=== PATIENT | female | born 1980 | race American Indian/Alaskan Native ===

== ENCOUNTER 2017-08-08 18:09 | Inpatient (IN) | payer MEDICAID ==
--- NOTE | 2017-08-08 18:41 | ED PDOC ---
Arrival/HPI - General Chief Complaint: Psychiatric Evaluation Time Seen by Provider: 08/08/17 18:25 Historian: Patient - History of Present Illness Narrative History of Present Illness (Text): 08/08/17 18:37 37 y/o female, pmh including htn/hyperlipidemia/dm, psychiatric history of schizoaffeective/bipolar/psychosis/depression, penicillin allergy, FS 197, biba from [facility] for direct admission to Dr. Avelina Rea's service for suicidal ideation. Pt. stated that she has been having depression and suicidal thoughts with auditory hallucination for the past 1 week, suicidal plan is overdose on the tylenol which she didn't. Pt. was seen initially at the [facility] which labs were performed with normal acetaminophen level. Pt. stated that she feels well, no night sweat, no rash, no palpitation, no dizziness, no other medical or psychological complaints. Pt. has no vaginal bleeding or discharge, no pelvic pain. Past Medical History - Provider Review Nursing Documentation Reviewed: Yes - Infectious Disease Hx of Infectious Diseases: None - Cardiac Hx Hypertension: Yes - Pulmonary Hx Asthma: Yes - Endocrine/Metabolic Hx Diabetes Mellitus Type 2: Yes - Psychiatric Hx Bipolar Disorder: Yes Hx Depression: Yes Hx Psychosis: Yes Hx Substance Use: No Other/Comment: schizoeffective disorder Family/Social History - Physician Review Nursing Documentation Reviewed: Yes Family/Social History: Unknown Family HX Smoking Status: Never Smoked Hx Alcohol Use: No Hx Substance Use: No Allergies/Home Meds Allergies/Adverse Reactions: Allergies Penicillins Allergy (Verified 08/08/17 18:30) ANAPHYLAXIS Hurst Coolaid Allergy (Uncoded 08/08/17 18:30) ANAPHYLAXIS Grape Soda Allergy (Uncoded 08/08/17 18:30) ANAPHYLAXIS Home Medications: Home Meds Medication Instructions Recorded Confirmed Atorvastatin [Lipitor] 40 mg PO HS 08/08/17 08/08/17 Benztropine [Benztropine Mesylate] 0.5 mg PO BID 08/08/17 08/08/17 Divalproex [Depakote ER] 500 mg PO HS 08/08/17 08/08/17 Haldol 75 mg INJ Q2W 08/08/17 08/08/17 Haloperidol [Haldol] 10 mg PO BID 08/08/17 08/08/17 Lisinopril [Zestril] 5 mg PO DAILY 08/08/17 08/08/17 MetFORMIN [glucoPHAGE] 1,000 mg PO BID 08/08/17 08/08/17 Multivitamin [Daily Sara] 1 tab PO DAILY 08/08/17 08/08/17 Sertraline [Zoloft] 50 mg PO DAILY 08/08/17 08/08/17 traZODone [Desyrel] 50 mg PO HS 08/08/17 08/08/17 Review of Systems - Review of Systems Constitutional: absent: Fatigue, Fevers Eyes: absent: Vision Changes ENT: absent: Hearing Changes Respiratory: absent: SOB, Cough Cardiovascular: absent: Chest Pain Gastrointestinal: absent: Abdominal Pain, Constipation, Diarrhea, Nausea, Food Intolerance Musculoskeletal: absent: Arthralgias Skin: absent: Rash, Pruritis, Skin Lesions Neurological: absent: Headache, Dizziness Psychiatric: Depression, Suicidal Ideation. absent: Anxiety Physical Exam Vital Signs Reviewed: Yes Vital Signs Temp Pulse Resp BP Pulse Ox 08/08/17 18:30 98.9 F 80 20 129/86 99 Temperature: Afebrile Blood Pressure: Normal Pulse: Regular Respiratory Rate: Normal Appearance: Positive for: Well-Appearing, Non-Toxic, Comfortable Pain Distress: None Mental Status: Positive for: Alert and Oriented X 3 - Systems Exam Head: Present: Atraumatic, Normocephalic Pupils: Present: PERRL Extroacular Muscles: Present: EOMI Conjunctiva: Present: Normal Mouth: Present: Moist Mucous Membranes Neck: Present: Normal Range of Motion Respiratory/Chest: Present: Clear to Auscultation, Good Air Exchange. No: Respiratory Distress, Accessory Muscle Use Cardiovascular: Present: Regular Rate and Rhythm, Normal S1, S2. No: Murmurs Abdomen: Present: Normal Bowel Sounds. No: Tenderness, Distention, Peritoneal Signs Back: Present: Normal Inspection Upper Extremity: Present: Normal Inspection. No: Cyanosis, Edema Lower Extremity: Present: Normal Inspection. No: Edema Neurological: Present: GCS=15, CN II-XII Intact, Speech Normal Skin: Present: Warm, Dry, Normal Color. No: Rashes Psychiatric: Present: Alert, Oriented x 3, Normal Insight, Depressed Mood, Suicidal Ideation Medical Decision Making ED Course and Treatment: 08/08/17 18:42 -Labs reviewed including cbc/sma7/ua (show there is elevation of wbc and the patient has urinary symptoms but no vaginal bleeding or discharge, urine culture ordered by me here)/uds/acetaminophen level review. -I don't see any ekg or chest xray on the patient which I ordered ekg/cxr/urine culture, FS 197, admits urinary frequency but no vaginal bleeding/discharge, macrobid ordered. -I discussed the case and findings with Dr. Light, agreed that the patient can be admitted. 08/08/17 19:10 -Urine hcg is negative. -EKG: NSR @ 82 BPM, no ST elevation or depression, no T wave inversion -Chest xray show no active disease base on the ER wet read. Will follow up the official. -I spoke to the PES Jesusita, stated that the patient can be directly admitted to DR. Avelina Rea's service and she doesn't need to do the screening. -As planned, I will put in the admission order for Dr. Light. - RAD Interpretation Radiology Orders: 08/08/17 18:36 CHEST PORTABLE [RAD] Stat - EKG Interpretation EKG Interpretation (Text): 08/08/17 18:56 NSR @ 82 BPM, no ST elevation or depression, no T wave inversion Interpreted by ED Physician: Yes Type: 12 lead EKG - Medication Orders Current Medication Orders: Discontinued Medications Nitrofurantoin Macrocrystals (Macrobid) 100 mg PO STAT STA Stop: 08/08/17 18:47 Last Admin: 08/08/17 19:01 Dose: 100 mg - PA / LOOM WINDER TENDER / Resident Statement MD/DO has reviewed & agrees with the documentation as recorded. Disposition/Present on Arrival - Present on Arrival Any Indicators Present on Arrival: No History of DVT/PE: No History of Uncontrolled Diabetes: No Urinary Catheter: No History of Decub. Ulcer: No History Surgical Site Infection Following: None - Disposition Have Diagnosis and Disposition been Completed?: Yes Diagnosis: Suicidal ideation, Depression, UTI (urinary tract infection) Disposition: HOSPITALIZED Disposition Time: 18:45 Patient Plan: Admission Patient Problems: Current Active Problems Problem Status Onset Suicidal ideation Acute Depression Acute Condition: GUARDED Referrals: numberFire Asaf Remandy, [Primary Care Provider] - Follow up with primary Forms: [employer] ([place])
[2017-08-08] MEDS ORDERED: DiphenhydrAMINE 50 mg/ml Inj IM PRN (21:22)
[2017-08-09] MEDS ORDERED: Magnesium Hydroxide Susp 30 ml UD PO PRN (04:25)
[2017-08-09] MEDS ORDERED: Alum-Mag Hydrox-Simethicone Susp (30 mL) PO PRN (04:25)
[2017-08-09 06:34] LABS: BASO # 0.03 K/mm3 (0.0-2.0); BASO % 0.5 % (0.0-3.0); EOS # 0.2 (0.0-0.7); EOS % 2.7 % (1.5-5.0); GRAN # 2.79 (1.4-6.5); GRAN % 45.2 % (50.0-68.0); HEMATOCRIT 38.2 % (36.0-48.0); LYMPH # 2.8 (1.2-3.4); LYMPH % 44.7 % (22.0-35.0); MEAN CELL VOLUME 79.3 fl (80.0-105.0); MEAN PLATELET VOLUME 10.4 fl (7.0-11.0); MONO # 0.4 (0.1-0.6); MONO % 6.9 % (1.0-6.0); RED CELL DISTRIBUTION WIDTH 14.1 % (11.5-14.5); WHITE BLOOD COUNT 6.2 10^3/ul (4.5-11.0)
[2017-08-09 06:46] LABS: ALKALINE PHOSPHATASE 105 U/L (38-126); ALT/SGPT 32 U/L (7-56); AST/SGOT 19 U/L (14-36); BILIRUBIN,TOTAL 0.8 mg/dL (0.2-1.3); BLOOD UREA NITROGEN 9 mg/dL (7-21); CARBON DIOXIDE 26 mmol/L (21-33); CHLORIDE 103 mmol/L (98-107); GFR AFRICAN-AMERICAN > 60; GLUCOSE,RANDOM 189 mg/dL (70-110); POTASSIUM 3.8 mmol/L (3.6-5.0); SODIUM 136 mmol/L (132-148); TOTAL PROTEIN 6.9 g/dL (5.8-8.3)
--- NOTE | 2017-08-09 10:02 | RAD ---
HISTORY: medical clearance COMPARISON: No prior. FINDINGS: LUNGS: No active pulmonary disease. PLEURA: No significant pleural effusion identified, no pneumothorax apparent. CARDIOVASCULAR: Normal. OSSEOUS STRUCTURES: No significant abnormalities. VISUALIZED UPPER ABDOMEN: Normal. OTHER FINDINGS: None. IMPRESSION: No active disease.
--- NOTE | 2017-08-09 10:47 | PCM.PSYCH ---
Initial Psychiatric Evaluation - Initial Psychiatric Evaluation Type of Admission: Voluntary Legal Status: Capacity History of Present Illness and Precipitating Events: Patient is a single 37 y/o female with a psychiatric history of schizoaffective disorder and borderline personality disorder vs BIF, numerous prior admissions- most recently at [facility], history of suicide attempts most recently a year ago, in day treatment at the [facility] in [facility] , reported compliance with prescribed medications: Haldol Decanoate and Haldol po, Zoloft, trazodone and cogentin who was transferred from [facility] after being sent there by her day treatment program for depression, SI, and command auditory hallucinationsto kill herself. Patient reported to [facility] staff that she's been depressed for the last week and having suicidal thoughts to overdose on Tylenol. I met with patient at bedside. She is oriented to date, month, year, location and circumstances. Her affect is constricted and focus is fair. Grooming is adequate. Patient continues to report depression and hopelessness. She denies suicidal thoughts or recurrence of CAH/AH this morning. Thus far she is tolerating her medications and denies any new discomfort or pain. PSYCHIATRIC HISTORY Patient reports at least 10 to 11 prior psychiatric admissions. Most recently was a year ago at [facility]. Patient has a history of prior suicide attempts. Most recent suicide attempt was a year ago by cutting herself, this led to her [facility] admission. [facility] records indicated patient has a prior history of self mutilation. Patient has been attending day program at [facility] at in [facility] for the past 1.5 years. She is prescribed Cogentin 0.5 mg bid ,Haldol Decanoate 75 mg IM, Haldol 10 mg po bid, Depakote ER 500 mg HS, trazodone 50 mg HS, Zoloft 50 mg po daily. [facility] indicates that her psychiatrist is Dr. Jimenes, however this is her former psychiatrist. SOCIAL HISTORY Born and raised in [place]. Single. Patient has 8 children who live with their father (they all have the same father). Patient resides with her sister. She reported that she graduated high school. She is unemployed. Denies legal issues. Denies drug/alcohol/tobacco use. Current Medications: Active Medications Generic Name Dose Route Start Last Admin Trade Name Freq PRN Reason Stop Dose Admin Acetaminophen 650 mg 08/09/17 04:25 Tylenol 325mg Tab PO Q4 PRN Pain, Mild (1-3) Al Hydrox/Mg Hydrox/Simethicone 30 ml 08/09/17 04:25 Maalox Plus 30 Ml PO DAILY PRN Upset Stomach Atorvastatin Calcium 40 mg 08/09/17 17:00 Lipitor PO DIN [facility] Benztropine Mesylate 0.5 mg 08/09/17 08:00 Cogentin PO BID [facility] Diphenhydramine HCl 50 mg 08/08/17 21:19 Benadryl PO Q6 PRN Agitation Diphenhydramine HCl 50 mg 08/08/17 21:22 Benadryl IM Q6 PRN Agitation Haloperidol 10 mg 08/09/17 08:00 Haldol PO BID [facility] Protocol Haloperidol 5 mg 08/08/17 21:17 Haldol PO Q6H PRN Agitation Haloperidol Decanoate 75 mg 08/12/17 21:25 Haldol Decanoate--Long Acting IM 08/12/17 21:26 ONCE ONE Protocol Haloperidol Lactate 5 mg 08/08/17 21:23 Haldol IM Q6 PRN Agitation Protocol Lisinopril 5 mg 08/09/17 08:00 Zestril PO DAILY [facility] Lorazepam 2 mg 08/08/17 21:20 Ativan PO Q6 PRN Agitation Protocol Lorazepam 2 mg 08/08/17 21:21 Ativan IM Q6H PRN Agitation Protocol Magnesium Hydroxide 30 ml 08/09/17 04:25 Milk Of Magnesia PO DAILY PRN Constipation Metformin HCl 1,000 mg 08/09/17 08:00 Glucophage PO BID [facility] Sertraline HCl 50 mg 08/09/17 08:00 Zoloft PO DAILY [facility] Trazodone HCl 50 mg 08/08/17 22:00 08/08/17 21:41 Desyrel PO 50 mg HS [facility] Administration Past Psychiatric History - Past Psychiatric History Pertinent Medical Hx (Current Medical&Sleep Prob, Allergies): Allergies Allergy/AdvReac Type Severity Reaction Status Date / Time Penicillins Allergy ANAPHYLAXIS Verified 08/08/17 18:30 Hurst Coolaid Allergy ANAPHYLAXIS Uncoded 08/08/17 18:30 Grape Soda Allergy ANAPHYLAXIS Uncoded 08/08/17 18:30 Atorvastatin [Lipitor] 40 mg PO HS 08/08/17 Benztropine [Benztropine Mesylate] 0.5 mg PO BID 08/08/17 Divalproex [Depakote ER] 500 mg PO HS 08/08/17 Haldol 75 mg INJ Q2W 08/08/17 Haloperidol [Haldol] 10 mg PO BID 08/08/17 Lisinopril [Zestril] 5 mg PO DAILY 08/08/17 MetFORMIN [glucoPHAGE] 1,000 mg PO BID 08/08/17 Multivitamin [Daily Sara] 1 tab PO DAILY 08/08/17 Sertraline [Zoloft] 50 mg PO DAILY 08/08/17 traZODone [Desyrel] 50 mg PO HS 08/08/17 DSM 5 DX - DSM 5 DSM 5 Diagnosis: Schizoaffective Disorder - Recommended/Plan of Treatment Treatment Recommendations and Plan of Treatment: * grp, milieu and supportive tx * Haldol 10 mg po bid for hallucinations * Haldol Decanoate 75 mg IM ordered for 08/12/17 * Cogentin 0.5 mg po bid for EPS prophylaxis * Zoloft increased to 75 mg po daily for depression * Trazodone 50 mg HS for insomnia and depression * Haldol 5 mg with Ativan 2 mg q6 prn: agitation * Contacted Dr. Lolis Jimenes who was listed as patient's psychiatrist on [facility] paperwork. Dr. Jimenes indicates that she no longer treats this patient. Dr. Jimenes reports that patient is schizophrenic and does not have Borderline Personality Disorder. Patient is generally a kind person who easily decompensates when she spends time out of her sister's home. * Awaiting medical consultation * Vitals reviewed and noted below: Selected Entries 08/08/17 08/08/17 08/08/17 18:30 20:09 22:00 Temperature 98.9 F Pulse Rate 80 82 Respiratory 20 16 18 Rate Blood Pressure 129/86 120/80 O2 Sat by Pulse 99 99 Oximetry [place] ER STUDIES 08/08/17 18:56 NSR @ 82 BPM, no ST elevation or depression, no T wave inversion PER ER: Chest xray show no active disease base on the ER wet read. PER ER:-Urine hcg is negative. Macrobid 100 MG x1 given in ER [facility] Laboratory Results - last 24 hr 08/09/17 08/09/17 08/09/17 06:00 06:00 08:22 WBC 6.2 RBC 4.82 Hgb 13.0 Hct 38.2 MCV 79.3 L MCH 27.0 MCHC 34.0 RDW 14.1 Plt Count 211 MPV 10.4 Gran % 45.2 L Lymph % (Auto) 44.7 H [place] % (Auto) 6.9 H Eos % (Auto) 2.7 Baso % (Auto) 0.5 Gran # 2.79 Lymph # 2.8 [place] # 0.4 Eos # 0.2 Baso # 0.03 Sodium 136 Potassium 3.8 Chloride 103 Carbon Dioxide 26 Anion Gap 11 BUN 9 Creatinine 0.6 L Est GFR ( Amer) > 60 Est GFR (Non-Af Amer) > 60 POC Glucose (mg/dL) 185 H Random Glucose 189 H Calcium 9.0 Total Bilirubin 0.8 AST 19 ALT 32 Alkaline Phosphatase 105 Total Protein 6.9 Albumin 3.5 Globulin 3.4 Albumin/Globulin Ratio 1.0 L SUMMARIZED [facility] RESULTS CBC wnl Alk Phosphatase 122H Pf=359H Gzztcwy=814 UDS negative Ua= glucose >1000, Many RBC WBC 4-5 Bacteria FEW Acetaminophen<10 Salicylate <2.5
[2017-08-09] MEDS: Insulin Reg-MEDIUM-Coverage SC SCH ×3 (12:25→22:19)
[2017-08-09 12:42] LABS: URINE BILIRUBIN NEGATIVE (NEGATIVE); URINE BLOOD LARGE (NEGATIVE); URINE GLUCOSE (UA) 500 mg/dL (NEGATIVE); URINE KETONE NEGATIVE (NEGATIVE); URINE LEUKOCYTE ESTERASE NEGATIVE Leu/uL (NEGATIVE); URINE PROTEIN NEGATIVE mg/dL (<30 mg/dL)
[2017-08-09 12:46] LABS: URINE APPEARANCE CLEAR (CLEAR); URINE COLOR YELLOW (YELLOW)
[2017-08-09 13:00] LABS: URINE BACTERIA SMALL (NEG); URINE RBC 0 - 2 /hpf (0-2)
--- NOTE | 2017-08-09 15:48 | HP ---
HISTORY OF PRESENT ILLNESS: I was called to psychiatric unit to do a medical consult on Taina. I saw her in her bed. She is resting comfortably. She is a 37-year-old female , who presented with suicidal ideation and depression, also auditory hallucinations for about a week. She had a plan to overdose on Tylenol, but she did not. She was initially seen at [facility] and she was sent over to us. PAST MEDICAL HISTORY: Hypertension, high cholesterol, and diabetes. Asthma. PSYCHOLOGICAL HISTORY: Schizoaffective disorder, bipolar; psychosis, and depression. ALLERGIES: SHE HAS ALLERGIES TO PENICILLIN, CARDENAS COLLOID ALLERGY AND GRAPE SODA ALLERGY. FAMILY HISTORY: Unknown family history. SOCIAL HISTORY: No smoking. No drinking. No drugs. MEDICATIONS: She is on Lipitor, benztropine, Depakote, Haldol, Zestril, Glucophage, multivitamin, Zoloft, and Desyrel. REVIEW OF SYSTEMS: No acute vision or hearing changes. Little bit tired. She is depressed. Not feeling well emotionally. No shortness of breath. No cough. No chest pain. No palpitations. No abdominal pain, no constipation, diarrhea, nausea or vomiting. She can eat. She goes to the bathroom okay. No back pain or arthralgias. No itching of the skin. No skin lesions, rashes or ulcers. No headaches. No dizziness. She is suicidal. She is depressed. She is not feeling well mentally. PHYSICAL EXAMINATION: GENERAL: She is well appearing, nontoxic, comfortable. Alert and oriented x3. VITAL SIGNS: She is 98.9 temperature, 80 pulse, 20 respiratory rate, 129/86 blood pressure, 99% O2 sat on room air. HEENT: Head is atraumatic and normocephalic. Pupils are equal and reactive to light and accommodation. Extraocular muscles are intact. Throat is moist. NECK: Supple. HEART: Regular rate, normal S1 and S2. LUNGS: Clear to auscultation bilaterally, fair effort. ABDOMEN: Soft and nontender. Positive bowel sounds. No guarding. No rebound. No CVA tenderness. EXTREMITIES: No edema. NEUROLOGIC: GCS is 15. Cranial nerves II through XII grossly intact. Normal speech. Alert and oriented x3. She is sad and depressed. She is glad that she is here. SKIN: Warm and dry. No rashes or ulcers apparently to be seen by me, I could not see any, she did not tell me of any. LABORATORY DATA: She had multiple tests. Chest x-ray showed no acute disease. She had 136 sodium, potassium 3.8, BUN 9, creatinine 0.6, GFR greater than 60. Sugars 185, calcium 9, total bilirubin is 0.8, AST is 19, ALT 32, alkaline phosphatase 105, total protein 6.9, albumin 3.5, and globulin 3.4. 6.2 white count, 13 hemoglobin, and 38.2 hematocrit with 211 platelets. ASSESSMENT AND PLAN: I added insulin coverage. She will be on Ativan, Benadryl, Cogentin, Desyrel, Glucophage, Haldol, insulin coverage, Lipitor, Maalox, Macrobid, milk of magnesia, Tylenol, Zestril, and Zoloft. I am going to order urinalysis and C&S to see why she is on the Macrobid. I encouraged her to participate in groups, take the medications, eat, get out of bed as best she can, says she is feeling better. She is here for depression, suicidal ideation, diabetes, hypertension, high cholesterol, anxiety, and possible urinary tract infection. We will follow. Thank you very much for allowing me to participate in the care of this patient. Zachary Johnson DO [email or web address]
--- NOTE | 2017-08-09 23:24 | CARD ---
APPROVED REPORT EKG Measurement Heart [id number] <Conclusion> Normal sinus rhythm Low voltage QRS Borderline ECG
[2017-08-10 07:12] LABS: HEMATOCRIT 37.2 % (36.0-48.0); MEAN CELL VOLUME 79.8 fl (80.0-105.0); MEAN CORPUSCULAR HEMOGLOBIN 27.5 pg (25.0-35.0); MEAN CORPUSCULAR HGB CONC 34.4 g/dl (31.0-37.0); MEAN PLATELET VOLUME 11.3 fl (7.0-11.0); RED CELL DISTRIBUTION WIDTH 14.2 % (11.5-14.5); WHITE BLOOD COUNT 7.3 10^3/ul (4.5-11.0)
[2017-08-10 07:30] LABS: ALB/GLOB RATIO 1.1 (1.1-1.8); ALKALINE PHOSPHATASE 105 U/L (38-126); ALT/SGPT 31 U/L (7-56); AST/SGOT 20 U/L (14-36); BILIRUBIN,TOTAL 0.8 mg/dL (0.2-1.3); BLOOD UREA NITROGEN 11 mg/dL (7-21); CALCIUM 9.1 mg/dL (8.4-10.5); CARBON DIOXIDE 24 mmol/L (21-33); CHLORIDE 101 mmol/L (98-107); GFR AFRICAN-AMERICAN > 60; GLUCOSE,RANDOM 237 mg/dL (70-110); SODIUM 133 mmol/L (132-148)
[2017-08-10] MEDS: Insulin Reg-MEDIUM-Coverage SC SCH ×4 (09:04→22:02)
--- NOTE | 2017-08-10 09:18 | PCM.PYCHPN ---
Psychiatric Progress Note - Psychiatric Progress Note Patient seen today, length of contact: 25 min Patient Chief Complaint: "depressed" Problems Identified/Issues Discussed: History of Present Illness and Precipitating Events: Patient is a single 37 y/o female with a psychiatric history of schizoaffective disorder and borderline personality disorder vs BIF, numerous prior admissions- most recently at [facility], history of suicide attempts most recently a year ago, in day treatment at the [facility] in [facility] , reported compliance with prescribed medications: Haldol Decanoate and Haldol po, Zoloft, trazodone and cogentin who was transferred from [facility] after being sent there by her day treatment program for depression, SI, and command auditory hallucinationsto kill herself. Patient reported to [facility] staff that she's been depressed for the last week and having suicidal thoughts to overdose on Tylenol. I met with patient at bedside. She is oriented to date, month, year, location and circumstances. Her affect is constricted and focus is fair. Grooming is adequate. Patient continues to report depression and hopelessness. She denies suicidal thoughts or recurrence of CAH/AH this morning. Thus far she is tolerating her medications and denies any new discomfort or pain. PSYCHIATRIC HISTORY Patient reports at least 10 to 11 prior psychiatric admissions. Most recently was a year ago at [facility]. Patient has a history of prior suicide attempts. Most recent suicide attempt was a year ago by cutting herself, this led to her [facility] admission. [facility] records indicated patient has a prior history of self mutilation. Patient has been attending day program at [facility] at in [facility] for the past 1.5 years. She is prescribed Cogentin 0.5 mg bid ,Haldol Decanoate 75 mg IM, Haldol 10 mg po bid, Depakote ER 500 mg HS, trazodone 50 mg HS, Zoloft 50 mg po daily. [facility] indicates that her psychiatrist is Dr. Jimenes, however this is her former psychiatrist. SOCIAL HISTORY Born [place] raised [place]. Single. Patient has 8 children who live with their father (they all have the same father). Patient resides with her sister. She reported that she graduated high school. She is unemployed. Denies legal issues. Denies drug/alcohol/tobacco use. ~~~~~~~~~~~~~~~~~~~~~~~~~~~~~~~ I reviewed recent notes and met with patient at bedside. Patient remains unkempt , oddly related and internally preoccupied. Oriented x3. She reports continued depression and hallucinations however she is feeling a little better since yesterday. Affect remains constricted and her responses are brief and superficial. Staff notes indicate that patient appears depressed and has been in fair control on the unit. Grooming is poor despite encouragement by staff. She has been compliant with medications. There are no behavioral issues over the weekend Diagnostic Results: Schizoaffective Disorder Medication Change: No Medical Record Reviewed: Yes Mental Status Examination - Cognitive Function Orientation: Person, Place, Situation Attention: WNL - Mood Mood: Depressed - Affect Affect: Constricted - Speech Speech: Appropriate - Formal Thought Process Formal Thought Process: Hallucinations - Suicidal Ideation Suicidal Ideation: No - Homicidal Ideation Homicidal Ideation: No Goal/Treatment Plan - Goal/Treatment Plan Progress Toward Problem(s) and Goals/Treatment Plan: * grp, milieu and supportive tx * Haldol 10 mg po bid for hallucinations * Haldol Decanoate 75 mg IM ordered for 08/12/17 * Cogentin 0.5 mg po bid for EPS prophylaxis * Zoloft increased to 75 mg po daily for depression on 08/09/17 * Trazodone 50 mg HS for insomnia and depression * Haldol 5 mg + Ativan 2 mg + Benadryl 50 q6 prn: agitation * Contacted Dr. Lolis Jimenes who was listed as patient's psychiatrist on [facility] paperwork. Dr. Jimenes indicates that she no longer treats this patient. Dr. Jimenes reports that patient is schizophrenic and does not have Borderline Personality Disorder. Patient is generally a kind person who easily decompensates when she spends time out of her sister's home. * Appreciate f/u by Dr. Johnson on 08/09/17 * Vitals reviewed and noted below: Selected Entries 08/09/17 08/09/17 08/09/17 04:00 06:34 09:11 Temperature 97.8 F Pulse Rate 83 84 84 Respiratory 20 Rate Blood Pressure 106/70 107/67 107/67 [facility] 08/08/17 18:56 NSR @ 82 BPM, no ST elevation or depression, no T wave inversion PER ER: Chest xray show no active disease base on the ER wet read. PER ER:-Urine hcg is negative. Macrobid 100 MG x1 given in ER [facility] Laboratory Results - last 24 hr 08/09/17 08/09/17 08/09/17 06:00 06:00 08:22 WBC 6.2 RBC 4.82 Hgb 13.0 Hct 38.2 MCV 79.3 L MCH 27.0 MCHC 34.0 RDW 14.1 Plt Count 211 MPV 10.4 Gran % 45.2 L Lymph % (Auto) 44.7 H [place] % (Auto) 6.9 H Eos % (Auto) 2.7 Baso % (Auto) 0.5 Gran # 2.79 Lymph # 2.8 [place] # 0.4 Eos # 0.2 Baso # 0.03 Sodium 136 Potassium 3.8 Chloride 103 Carbon Dioxide 26 Anion Gap 11 BUN 9 Creatinine 0.6 L Est GFR ( Amer) > 60 Est GFR (Non-Af Amer) > 60 POC Glucose (mg/dL) 185 H Random Glucose 189 H Calcium 9.0 Total Bilirubin 0.8 AST 19 ALT 32 Alkaline Phosphatase 105 Total Protein 6.9 Albumin 3.5 Globulin 3.4 Albumin/Globulin Ratio 1.0 L Laboratory Results - last 24 hr 08/09/17 08/09/17 08/09/17 06:00 11:32 12:37 WBC RBC Hgb Hct MCV MCH MCHC RDW Plt Count MPV Sodium Potassium Chloride Carbon Dioxide Anion Gap BUN Creatinine Est GFR ( Amer) Est GFR (Non-Af Amer) POC Glucose (mg/dL) 223 H Random Glucose Calcium Total Bilirubin AST ALT Alkaline Phosphatase Total Protein Albumin Globulin Albumin/Globulin Ratio Urine Color Yellow Urine Appearance Clear Urine pH 6.0 Ur Specific [place] 1.015 Urine Protein Negative Urine Glucose (UA) 500 H Urine Ketones Negative Urine Blood Large H Urine Nitrate Negative Urine Bilirubin Negative Urine Urobilinogen 1.0 H Ur Leukocyte Esterase Negative Urine RBC 0 - 2 Urine WBC 5 - 10 Ur Epithelial Cells 3 - 4 Urine Bacteria Small RPR Nonreactive 08/09/17 08/09/17 08/10/17 16:27 22:06 06:50 WBC 7.3 RBC 4.66 Hgb 12.8 Hct 37.2 MCV 79.8 L MCH 27.5 MCHC 34.4 RDW 14.2 Plt Count 224 MPV 11.3 H Sodium Potassium Chloride Carbon Dioxide Anion Gap BUN Creatinine Est GFR ( Amer) Est GFR (Non-Af Amer) POC Glucose (mg/dL) 132 H 296 H Random Glucose Calcium Total Bilirubin AST ALT Alkaline Phosphatase Total Protein Albumin Globulin Albumin/Globulin Ratio Urine Color Urine Appearance Urine pH Ur Specific [place] Urine Protein Urine Glucose (UA) Urine Ketones Urine Blood Urine Nitrate Urine Bilirubin Urine Urobilinogen Ur Leukocyte Esterase Urine RBC Urine WBC Ur Epithelial Cells Urine Bacteria RPR 08/10/17 08/10/17 06:50 08:39 WBC RBC Hgb Hct MCV MCH MCHC RDW Plt Count MPV Sodium 133 Potassium 4.0 Chloride 101 Carbon Dioxide 24 Anion Gap 13 BUN 11 Creatinine 0.6 L Est GFR ( Amer) > 60 Est GFR (Non-Af Amer) > 60 POC Glucose (mg/dL) 179 H Random Glucose 237 H Calcium 9.1 Total Bilirubin 0.8 AST 20 ALT 31 Alkaline Phosphatase 105 Total Protein 7.0 Albumin 3.6 Globulin 3.4 Albumin/Globulin Ratio 1.1 Urine Color Urine Appearance Urine pH Ur Specific [place] Urine Protein Urine Glucose (UA) Urine Ketones Urine Blood Urine Nitrate Urine Bilirubin Urine Urobilinogen Ur Leukocyte Esterase Urine RBC Urine WBC Ur Epithelial Cells Urine Bacteria RPR [facility] RESULTS CBC wnl Alk Phosphatase 122H [id number] UDS negative Ua= glucose >1000, Many RBC WBC 4-5 Bacteria FEW Acetaminophen<10 Salicylate <2.5
[2017-08-10 13:21] LABS: URINE BILIRUBIN NEGATIVE (NEGATIVE); URINE BLOOD LARGE (NEGATIVE); URINE GLUCOSE (UA) >=1000 mg/dL (NEGATIVE); URINE KETONE NEGATIVE (NEGATIVE); URINE LEUKOCYTE ESTERASE NEGATIVE Leu/uL (NEGATIVE); URINE PROTEIN NEGATIVE mg/dL (<30 mg/dL); URINE UROBILINOGEN 0.2 E.U./dL (<1 E.U./dL)
[2017-08-10 13:26] LABS: URINE APPEARANCE CLEAR (CLEAR); URINE COLOR YELLOW (YELLOW)
[2017-08-10 13:44] LABS: URINE AMORPHOUS SEDIMENT FEW; URINE BACTERIA SMALL (NEG); URINE EPITHELIAL CELLS 0 - 2 /hpf (0-5); URINE RBC 0 - 2 /hpf (0-2); URINE WBC 0 - 2 /hpf (0-6)
--- NOTE | 2017-08-10 14:14 | PN ---
DATE: SUBJECTIVE: I saw Taina resting comfortably in her bed in the Psychiatric Unit. She is very much happy today, smiling, in good spirits. No complaints. She tells me she is slept well and she is eating better. MEDICATIONS: She is on Ativan, Benadryl, Cogentin, Desyrel, Glucophage, Haldol, insulin, Lipitor, Maalox, milk of magnesia, Tylenol, Zestril, and Zoloft. PHYSICAL EXAMINATION: GENERAL: Much better spirits today than yesterday. VITAL SIGNS: She has 97.7 temperature, 78 pulse, 114/67 blood pressure, and 16 respiratory rate. HEENT: Head is atraumatic and normocephalic. Throat is moist. NECK: Supple. HEART: Regular rate. LUNGS: Clear to auscultation. ABDOMEN: Soft and obese. EXTREMITIES: No edema. LABORATORY DATA: She has a 7.3 white count, 12.8 hemoglobin, 37.2 hematocrit with 224 platelets. She has 133 sodium, potassium is 4, BUN is 11, and creatinine is 0.6. GFR is greater than 60. Blood sugars are all over place of 185, 223, 132, 296, 237 and 179. Calcium is 9.1, total bilirubin is 0.8, AST is 20, ALT is 31, alkaline phosphatase is 105, total protein 7, and albumin is 3.6. IMPRESSION AND PLAN: She is being seen by psychiatry. I am going to add medication to her for diabetes. Januvia 50 mg, we will continue to check her blood sugars and monitor her blood pressure. She is here for suicidal ideation, depression, anxiety, diabetes, hypertension, high cholesterol and urinary tract infection possibly. The urinalysis was small bacteria and the micro showed multiple species probably contamination. I will order another urine. I will add the Januvia. We will follow. Zachary Johnson DO
[2017-08-11] MEDS: Insulin Reg-MEDIUM-Coverage SC SCH ×4 (09:47→21:25)
--- NOTE | 2017-08-11 14:01 | PN ---
DATE: SUBJECTIVE: I saw Taina resting comfortably this morning in bed. She slept well last night. She told me last night that she had nausea, vomiting, and some diarrhea. She feels better this morning. She ate sandwich for breakfast. We will see how she does. PHYSICAL EXAMINATION: VITAL SIGNS: She has a temperature 97.8, pulse 91, blood pressure 122/81, and respiratory rate 17. HEENT: Head is atraumatic and normocephalic. HEART: Regular rate. LUNGS: Clear to auscultation ABDOMEN: Soft. Positive bowel sounds. EXTREMITIES: No edema. LABORATORY DATA: Last labs from 08/10/2017, she had large blood in the urine. Otherwise, last blood sugar was 142. Kidneys were okay. Hemoglobin is 12.8. MEDICATIONS: She is currently on Ativan, Benadryl, Cogentin, Desyrel, Glucophage, Haldol, insulin, Januvia, Lipitor, Maalox, milk of magnesia, Tylenol, Zestril, and Zoloft. Depression, suicidal ideation, anxiety, hypertension, high cholesterol, urinary tract infection, nausea, and vomiting. We will continue as per Psychiatry. We will make sure she continues to get medications for nausea, vomiting, constipation, and diarrhea if it happens again. I will follow along. Hopefully, this is a one time episode. We will follow. Zachary Johnson DO
--- NOTE | 2017-08-11 15:55 | PCM.PYCHPN ---
Psychiatric Progress Note - Psychiatric Progress Note Patient seen today, length of contact: 30min Patient Chief Complaint: "I had suicidal thoughts, I told my psychiatrist, he called 911" Medical Problems: diabetes, hypertension, dyslipidemia Diagnostic Results: 08/10/17 06:50 08/10/17 06:50 Lab Results 08/11/17 07:15: POC Glucose (mg/dL) 142 H 08/10/17 21:47: POC Glucose (mg/dL) 219 H 08/10/17 15:51: POC Glucose (mg/dL) 137 H 08/10/17 13:10: Urine Color Yellow, Urine Appearance Clear, Urine pH 6.0, Ur Specific [place] 1.010, Urine Protein Negative, Urine Glucose (UA) >=1000, Urine Ketones Negative, Urine Blood Large H, Urine Nitrate Negative, Urine Bilirubin Negative, Urine Urobilinogen 0.2, Ur Leukocyte Esterase Negative, Urine RBC 0 - 2, Urine WBC 0 - 2, Ur Epithelial Cells 0 - 2, Amorphous Sediment Few, Urine Bacteria Small 08/10/17 11:42: POC Glucose (mg/dL) 281 H 08/10/17 08:39: POC Glucose (mg/dL) 179 H 08/10/17 06:50: Sodium 133, Potassium 4.0, Chloride 101, Carbon Dioxide 24, Anion Gap 13, BUN 11, Creatinine 0.6 L, Est GFR ( Amer) > 60, Est GFR ( Non-Af Amer) > 60, Random Glucose 237 H, Calcium 9.1, Total Bilirubin 0.8, AST 20, ALT 31, Alkaline Phosphatase 105, Total Protein 7.0, Albumin 3.6, Globulin 3.4, Albumin/Globulin Ratio 1.1 08/10/17 06:50: WBC 7.3, RBC 4.66, Hgb 12.8, Hct 37.2, MCV 79.8 L, MCH 27.5, MCHC 34.4, RDW 14.2, Plt Count 224, MPV 11.3 H 08/09/17 22:06: POC Glucose (mg/dL) 296 H 08/09/17 16:27: POC Glucose (mg/dL) 132 H 08/09/17 12:37: Urine Color Yellow, Urine Appearance Clear, Urine pH 6.0, Ur Specific [place] 1.015, Urine Protein Negative, Urine Glucose (UA) 500 H, Urine Ketones Negative, Urine Blood Large H, Urine Nitrate Negative, Urine Bilirubin Negative, Urine Urobilinogen 1.0 H, Ur Leukocyte Esterase Negative, Urine RBC 0 - 2, Urine WBC 5 - 10, Ur Epithelial Cells 3 - 4, Urine Bacteria Small 08/09/17 11:32: POC Glucose (mg/dL) 223 H 08/09/17 08:22: POC Glucose (mg/dL) 185 H 08/09/17 06:00: RPR Nonreactive 08/09/17 06:00: Sodium 136, Potassium 3.8, Chloride 103, Carbon Dioxide 26, Anion Gap 11, BUN 9, Creatinine 0.6 L, Est GFR ( Amer) > 60, Est GFR (Non -Af Amer) > 60, Random Glucose 189 H, Calcium 9.0, Total Bilirubin 0.8, AST 19, ALT 32, Alkaline Phosphatase 105, Total Protein 6.9, Albumin 3.5, Globulin 3.4, Albumin/Globulin Ratio 1.0 L 08/09/17 06:00: WBC 6.2, RBC 4.82, Hgb 13.0, Hct 38.2, MCV 79.3 L, MCH 27.0, MCHC 34.0, RDW 14.1, Plt Count 211, MPV 10.4, Gran % 45.2 L, Lymph % (Auto) 44.7 H, [place] % (Auto) 6.9 H, Eos % (Auto) 2.7, Baso % (Auto) 0.5, Gran # 2.79, Lymph # 2.8, [place] # 0.4, Eos # 0.2, Baso # 0.03 Vital Signs Temp Pulse Resp BP Pulse Ox 08/11/17 09:50 91 H 122/81 08/11/17 07:18 97.8 F 91 H 17 122/81 08/10/17 09:03 78 114/67 08/10/17 07:07 97.7 F 78 16 114/67 08/09/17 09:11 84 107/67 08/09/17 06:34 97.8 F 84 20 107/67 08/09/17 04:00 76 103/66 08/08/17 22:00 18 08/08/17 20:09 82 16 120/80 99 08/08/17 18:30 98.9 F 80 20 129/86 99 repeated UA showed no bacteria, clean, no need for antibiotics, d/w DSM 5 Symptoms Update: as per : Patient is a single 37 y/o female with a psychiatric history of schizoaffective disorder and borderline personality disorder vs BIF, numerous prior admissions- most recently at [facility], history of suicide attempts most recently a year ago, in day treatment program at [facility], reported compliance with prescribed medications: Haldol Decanoate and Haldol po, Zoloft, trazodone and cogentin who was transferred from [facility] after being sent there by her day treatment program for depression, SI, and command auditory hallucinationsto kill herself. Patient reported to [facility] staff that she's been depressed for the last week and having suicidal thoughts to overdose on Tylenol. patient was seen at the treatment team meeting, patient presented to have poor personal hygiene, very poor dental hygiene, has very strong body order, seems to be careless about her appearance. Patient has tendency of smiling inappropriately even if she was telling about suicidal thoughts, patient obviously is psychotic, disorganized, but overall very pleasant. Patient resides with her sister, gave permission to talk to her for collaterals. Denies drug/alcohol/tobacco use. patient reported that she tolerates medications well, no side effects observed or reported, aims 0. Patient was willing to increase Haldol Decanoate to 100 mg monthly, due is for tomorrow. As per nursing report, patient was calm, corporative, but needs strong encouragement to take a shower. Mental status examination: Patient appears at her chronological age, disorganized, intermittent eye contact , speech was underproductive, poverty of speech, mood described "I was depressed ", affect was labile, mood incongruent, thought process seems to be disorganized , there is poverty of thoughts, thought content: Patient reported to have hallucinations most recently was at the morning time, denied feeling paranoid, patient appears to be internally preoccupied and paranoid, patient denied thoughts of harming herself or others, denied intent or plan, insight and judgment are limited, impulses are unpredictable. Diagnostic Results: Schizoaffective Disorder Treatment plan: grp, milieu and supportive tx Haldol 10 mg po bid for hallucinations Haldol Decanoate 100 mg IM ordered for 08/12/17 Cogentin 0.5 mg po bid for EPS prophylaxis Zoloft increased to 75 mg po daily for depression Trazodone 50 mg HS for insomnia and depression Haldol 5 mg with Ativan 2 mg q6 prn: agitation Dr. Meléndez contacted Dr. Lolis Jimenes who was listed as patient's psychiatrist on [facility] paperwork. Dr. Jimenes indicates that she no longer treats this patient. Dr. Jimenes reports that patient is schizophrenic and does not have Borderline Personality Disorder. Patient is generally a kind person who easily decompensates when she spends time out of her sister's home. SW consultation for discharge plan and social issues Med management Family involvement Follow up on labs Will monitor closely SW evaluation for d/c planning Pt was educated about risk/benefits and alternatives of medications, coping strategies (safety plan, suicide prevention), relapse prevention, importance of follow up with psychiatrist and therapist, stay away from drugs/alcohol/smoking Medication Change: Yes (Haldol Decanoate was increased) Medical Record Reviewed: Yes Consults ordered or reviewed: medical consultation appreciated Goal/Treatment Plan - Goal/Treatment Plan Need for Continued Stay: Remain at risks for inpatient hospitalization, Severe depression anxiety, Discharge may exacerbated symptoms, Severe functional impairment Estimated Date of D/C: 08/15/17 (will monitor closely) - Smoking Cessation Smoking Cessation Initiated: No Reason for not providing: denied smoking
--- NOTE | 2017-08-11 17:00 | PCM.BM ---
Treatment Plan Problems - Problems identified on initial assessmt AUDITORY HALLUCINATION Date Initiated: 08/11/17 Time Initiated: 17:00 Assessment reference: NA Status: Active Priority: 1 SUICIDAL IDEATION Date Initiated: 08/11/17 Time Initiated: 17:00 Assessment reference: NA Status: Active Priority: 2 Treatment assets and liabiliti Patient Assests: cooperative, ADL independent, physically healthy, cognitively intact Patient Liabilities: poor support system - Milieu Protocol Maintain good personal hygiene: every shift Encourage regular showers, every shift Remind patient to perform daily oral care, every shift Assist patient to perform ADL's Maintain personal safety: daily Educate patient to report safety concerns to staff, daily Monitor environment for contraband/sharps Medication safety: Monitor for expected outcome, potential side effects: daily, Assess barriers to learning: daily, Assess readiness for medication education: daily Milieu Narrative: * grp, milieu and supportive tx * Haldol 10 mg po bid for hallucinations * Haldol Decanoate 75 mg IM ordered for 08/12/17 * Cogentin 0.5 mg po bid for EPS prophylaxis * Zoloft increased to 75 mg po daily for depression on 08/09/17 * Trazodone 50 mg HS for insomnia and depression * Haldol 5 mg + Ativan 2 mg + Benadryl 50 q6 prn: agitation * Contacted Dr. Lolis Jimenes who was listed as patient's psychiatrist on [facility] paperwork. Dr. Jimenes indicates that she no longer treats this patient. Dr. Jimenes reports that patient is schizophrenic and does not have Borderline Personality Disorder. Patient is generally a kind person who easily decompensates when she spends time out of her sister's home. * Appreciate f/u by Dr. Johnson on 08/09/17 * Vitals reviewed and noted below: Selected Entries 08/09/17 08/09/17 08/09/17 04:00 06:34 09:11 Temperature 97.8 F Pulse Rate 83 84 84 Respiratory 20 Rate Blood Pressure 106/70 107/67 107/67 [place] ER STUDIES 08/08/17 18:56 NSR @ 82 BPM, no ST elevation or depression, no T wave inversion PER ER: Chest xray show no active disease base on the ER wet read. PER ER:-Urine hcg is negative. Macrobid 100 MG x1 given in ER [place] [facility] Laboratory Results - last 24 hr 08/09/17 08/09/17 08/09/17 06:00 06:00 08:22 WBC 6.2 RBC 4.82 Hgb 13.0 Hct 38.2 MCV 79.3 L MCH 27.0 MCHC 34.0 RDW 14.1 Plt Count 211 MPV 10.4 Gran % 45.2 L Lymph % (Auto) 44.7 H [place] % (Auto) 6.9 H Eos % (Auto) 2.7 Baso % (Auto) 0.5 Gran # 2.79 Lymph # 2.8 Dawson # 0.4 Eos # 0.2 Baso # 0.03 Sodium 136 Potassium 3.8 Chloride 103 Carbon Dioxide 26 Anion Gap 11 BUN 9 Creatinine 0.6 L Est GFR ( Amer) > 60 Est GFR (Non-Af Amer) > 60 POC Glucose (mg/dL) 185 H Random Glucose 189 H Calcium 9.0 Total Bilirubin 0.8 AST 19 ALT 32 Alkaline Phosphatase 105 Total Protein 6.9 Albumin 3.5 Globulin 3.4 Albumin/Globulin Ratio 1.0 L Laboratory Results - last 24 hr 08/09/17 08/09/17 08/09/17 06:00 11:32 12:37 WBC RBC Hgb Hct MCV MCH MCHC RDW Plt Count MPV Sodium Potassium Chloride Carbon Dioxide Anion Gap BUN Creatinine Est GFR ( Amer) Est GFR (Non-Af Amer) POC Glucose (mg/dL) 223 H Random Glucose Calcium Total Bilirubin AST ALT Alkaline Phosphatase Total Protein Albumin Globulin Albumin/Globulin Ratio Urine Color Yellow Urine Appearance Clear Urine pH 6.0 Ur Specific [place] 1.015 Urine Protein Negative Urine Glucose (UA) 500 H Urine Ketones Negative Urine Blood Large H Urine Nitrate Negative Urine Bilirubin Negative Urine Urobilinogen 1.0 H Ur Leukocyte Esterase Negative Urine RBC 0 - 2 Urine WBC 5 - 10 Ur Epithelial Cells 3 - 4 Urine Bacteria Small RPR Nonreactive 08/09/17 08/09/17 08/10/17 16:27 22:06 06:50 WBC 7.3 RBC 4.66 Hgb 12.8 Hct 37.2 MCV 79.8 L MCH 27.5 MCHC 34.4 RDW 14.2 Plt Count 224 MPV 11.3 H Sodium Potassium Chloride Carbon Dioxide Anion Gap BUN Creatinine Est GFR ( Amer) Est GFR (Non-Af Amer) POC Glucose (mg/dL) 132 H 296 H Random Glucose Calcium Total Bilirubin AST ALT Alkaline Phosphatase Total Protein Albumin Globulin Albumin/Globulin Ratio Urine Color Urine Appearance Urine pH Ur Specific [place] Urine Protein Urine Glucose (UA) Urine Ketones Urine Blood Urine Nitrate Urine Bilirubin Urine Urobilinogen Ur Leukocyte Esterase Urine RBC Urine WBC Ur Epithelial Cells Urine Bacteria RPR 08/10/17 08/10/17 06:50 08:39 WBC RBC Hgb Hct MCV MCH MCHC RDW Plt Count MPV Sodium 133 Potassium 4.0 Chloride 101 Carbon Dioxide 24 Anion Gap 13 BUN 11 Creatinine 0.6 L Est GFR ( Amer) > 60 Est GFR (Non-Af Amer) > 60 POC Glucose (mg/dL) 179 H Random Glucose 237 H Calcium 9.1 Total Bilirubin 0.8 AST 20 ALT 31 Alkaline Phosphatase 105 Total Protein 7.0 Albumin 3.6 Globulin 3.4 Albumin/Globulin Ratio 1.1 Urine Color Urine Appearance Urine pH Ur Specific [place] Urine Protein Urine Glucose (UA) Urine Ketones Urine Blood Urine Nitrate Urine Bilirubin Urine Urobilinogen Ur Leukocyte Esterase Urine RBC Urine WBC Ur Epithelial Cells Urine Bacteria RPR [facility] RESULTS CBC wnl Alk Phosphatase 122H Vi=[id number]=[id number] UDS negative Ua= glucose >1000, Many RBC WBC 4-5 Bacteria FEW Acetaminophen<10 Salicylate <2.5 Family Contact Family involvement: No known Family/SO Discharge/Continuing Care - Education Needs Education Needs: Patient Medication, Patient Diagnosis/Disease Process, Patient Coping Skills, Patient Placement options, Patient Community resources, Patient Activities of Daily Living, Patient Nutrition, Patient Health Practices/Safety, Patient Personal Hygiene/Grooming, Patient Aftercare Safety Plan - Discharge Discharge Criteria: Tolerates medication w/o severe side effects, Free of Suicidal thoughts, Free of agitation, Normal sleep pattern, Ability to care for self, Reduction of target symptoms Discharge to:: Home - Treatment Team Participation Patient/Family/SO Statement: * grp, milieu and supportive tx * Haldol 10 mg po bid for hallucinations * Haldol Decanoate 75 mg IM ordered for 08/12/17 * Cogentin 0.5 mg po bid for EPS prophylaxis * Zoloft increased to 75 mg po daily for depression on 08/09/17 * Trazodone 50 mg HS for insomnia and depression * Haldol 5 mg + Ativan 2 mg + Benadryl 50 q6 prn: agitation * Contacted Dr. Lolis Jimenes who was listed as patient's psychiatrist on [facility] paperwork. Dr. Jimenes indicates that she no longer treats this patient. Dr. Jimenes reports that patient is schizophrenic and does not have Borderline Personality Disorder. Patient is generally a kind person who easily decompensates when she spends time out of her sister's home. * Appreciate f/u by Dr. Johnson on 08/09/17 * Vitals reviewed and noted below: Selected Entries 08/09/17 08/09/17 08/09/17 04:00 06:34 09:11 Temperature 97.8 F Pulse Rate 83 84 84 Respiratory 20 Rate Blood Pressure 106/70 107/67 107/67 [place] ER STUDIES 08/08/17 18:56 NSR @ 82 BPM, no ST elevation or depression, no T wave inversion PER ER: Chest xray show no active disease base on the ER wet read. PER ER:-Urine hcg is negative. Macrobid 100 MG x1 given in ER [place] [facility] Laboratory Results - last 24 hr 08/09/17 08/09/17 08/09/17 06:00 06:00 08:22 WBC 6.2 RBC 4.82 Hgb 13.0 Hct 38.2 MCV 79.3 L MCH 27.0 MCHC 34.0 RDW 14.1 Plt Count 211 MPV 10.4 Gran % 45.2 L Lymph % (Auto) 44.7 H Dawson % (Auto) 6.9 H Eos % (Auto) 2.7 Baso % (Auto) 0.5 Gran # 2.79 Lymph # 2.8 [place] # 0.4 Eos # 0.2 Baso # 0.03 Sodium 136 Potassium 3.8 Chloride 103 Carbon Dioxide 26 Anion Gap 11 BUN 9 Creatinine 0.6 L Est GFR ( Amer) > 60 Est GFR (Non-Af Amer) > 60 POC Glucose (mg/dL) 185 H Random Glucose 189 H Calcium 9.0 Total Bilirubin 0.8 AST 19 ALT 32 Alkaline Phosphatase 105 Total Protein 6.9 Albumin 3.5 Globulin 3.4 Albumin/Globulin Ratio 1.0 L Laboratory Results - last 24 hr 08/09/17 08/09/17 08/09/17 06:00 11:32 12:37 WBC RBC Hgb Hct MCV MCH MCHC RDW Plt Count MPV Sodium Potassium Chloride Carbon Dioxide Anion Gap BUN Creatinine Est GFR ( Amer) Est GFR (Non-Af Amer) POC Glucose (mg/dL) 223 H Random Glucose Calcium Total Bilirubin AST ALT Alkaline Phosphatase Total Protein Albumin Globulin Albumin/Globulin Ratio Urine Color Yellow Urine Appearance Clear Urine pH 6.0 Ur Specific [place] 1.015 Urine Protein Negative Urine Glucose (UA) 500 H Urine Ketones Negative Urine Blood Large H Urine Nitrate Negative Urine Bilirubin Negative Urine Urobilinogen 1.0 H Ur Leukocyte Esterase Negative Urine RBC 0 - 2 Urine WBC 5 - 10 Ur Epithelial Cells 3 - 4 Urine Bacteria Small RPR Nonreactive 08/09/17 08/09/17 08/10/17 16:27 22:06 06:50 WBC 7.3 RBC 4.66 Hgb 12.8 Hct 37.2 MCV 79.8 L MCH 27.5 MCHC 34.4 RDW 14.2 Plt Count 224 MPV 11.3 H Sodium Potassium Chloride Carbon Dioxide Anion Gap BUN Creatinine Est GFR ( Amer) Est GFR (Non-Af Amer) POC Glucose (mg/dL) 132 H 296 H Random Glucose Calcium Total Bilirubin AST ALT Alkaline Phosphatase Total Protein Albumin Globulin Albumin/Globulin Ratio Urine Color Urine Appearance Urine pH Ur Specific [place] Urine Protein Urine Glucose (UA) Urine Ketones Urine Blood Urine Nitrate Urine Bilirubin Urine Urobilinogen Ur Leukocyte Esterase Urine RBC Urine WBC Ur Epithelial Cells Urine Bacteria RPR 08/10/17 08/10/17 06:50 08:39 WBC RBC Hgb Hct MCV MCH MCHC RDW Plt Count MPV Sodium 133 Potassium 4.0 Chloride 101 Carbon Dioxide 24 Anion Gap 13 BUN 11 Creatinine 0.6 L Est GFR ( Amer) > 60 Est GFR (Non-Af Amer) > 60 POC Glucose (mg/dL) 179 H Random Glucose 237 H Calcium 9.1 Total Bilirubin 0.8 AST 20 ALT 31 Alkaline Phosphatase 105 Total Protein 7.0 Albumin 3.6 Globulin 3.4 Albumin/Globulin Ratio 1.1 Urine Color Urine Appearance Urine pH Ur Specific [place] Urine Protein Urine Glucose (UA) Urine Ketones Urine Blood Urine Nitrate Urine Bilirubin Urine Urobilinogen Ur Leukocyte Esterase Urine RBC Urine WBC Ur Epithelial Cells Urine Bacteria RPR [facility] RESULTS CBC wnl Alk Phosphatase 122H Jp=[id number] UDS negative Ua= glucose >1000, Many RBC WBC 4-5 Bacteria FEW Acetaminophen<10 Salicylate <2.5
[2017-08-12] MEDS: Insulin Reg-MEDIUM-Coverage SC SCH ×4 (09:15→21:17)
--- NOTE | 2017-08-12 10:09 | PN ---
DATE: SUBJECTIVE: I saw Taina resting comfortably in bed. She slept well. She is ready for breakfast. She is telling me that she participated in groups yesterday and is in good spirits this morning. She tells she is starting to feel better and less depressed. MEDICATIONS: She is on Ativan, Benadryl, Cogentin, Desyrel, Glucophage, Haldol, insulin, Januvia, Lipitor, Maalox, milk of magnesia, Tylenol, Zestril, and Zoloft. PHYSICAL EXAMINATION: VITAL SIGNS: 97.9 temperature, 84 pulse, 132/70 blood pressure, 18 respiratory rate. HEENT: Head is atraumatic, normocephalic. HEART: Regular rate. LUNGS: Clear to auscultation. ABDOMEN: Soft. EXTREMITIES: No edema. LABORATORY DATA: She has a 7.3 white count, 12.8 hemoglobin, 224 platelets. Last blood sugar was 245, this is a little bit elevated. ASSESSMENT AND PLAN: I am going to adjust her medicines for diabetes. I am going to increase the Januvia to 100 mg. Continue with rest of the treatment care for her suicidal ideation, depression, anxiety, diabetes, hypertension, cholesterol, UTI, which was contaminant in nausea and vomiting, which has improved. Zachary Johnson DO
--- NOTE | 2017-08-12 14:09 | PCM.BM ---
- Diagnosis (1) Schizoaffective disorder Status: Acute Interventions: 08/11/17 08:59 Psychoeducation/psychotherapy Psychopharmacology/adjustment of medications as needed/ monitoring possible side effects Evaluate pt on daily basis Compliance with medications and follow up appointments Long acting medication if pt is noncompliant with pill form Suicide and homicide risk assessment and prevention, coping strategies, safety plan Relapse prevention Reduction of symptoms Improve functional status Possible assertive community treatment Cognitive behavioral therapy Family involvement Possible social skill training as outpatient - Milieu Protocol Milieu Narrative: * grp, milieu and supportive tx * Haldol 10 mg po bid for hallucinations * Haldol Decanoate 75 mg IM ordered for 08/12/17 * Cogentin 0.5 mg po bid for EPS prophylaxis * Zoloft increased to 75 mg po daily for depression on 08/09/17 * Trazodone 50 mg HS for insomnia and depression * Haldol 5 mg + Ativan 2 mg + Benadryl 50 q6 prn: agitation * Contacted Dr. Lolis Jimenes who was listed as patient's psychiatrist on [facility] paperwork. Dr. Jimenes indicates that she no longer treats this patient. Dr. Jimenes reports that patient is schizophrenic and does not have Borderline Personality Disorder. Patient is generally a kind person who easily decompensates when she spends time out of her sister's home. * Appreciate f/u by Dr. Johnson on 08/09/17 * Vitals reviewed and noted below: Selected Entries 08/09/17 08/09/17 08/09/17 04:00 06:34 09:11 Temperature 97.8 F Pulse Rate 83 84 84 Respiratory 20 Rate Blood Pressure 106/70 107/67 107/67 [place] ER STUDIES 08/08/17 18:56 NSR @ 82 BPM, no ST elevation or depression, no T wave inversion PER ER: Chest xray show no active disease base on the ER wet read. PER ER:-Urine hcg is negative. Macrobid 100 MG x1 given in ER [place] [facility] Laboratory Results - last 24 hr 08/09/17 08/09/17 08/09/17 06:00 06:00 08:22 WBC 6.2 RBC 4.82 Hgb 13.0 Hct 38.2 MCV 79.3 L MCH 27.0 MCHC 34.0 RDW 14.1 Plt Count 211 MPV 10.4 Gran % 45.2 L Lymph % (Auto) 44.7 H [place] % (Auto) 6.9 H Eos % (Auto) 2.7 Baso % (Auto) 0.5 Gran # 2.79 Lymph # 2.8 [place] # 0.4 Eos # 0.2 Baso # 0.03 Sodium 136 Potassium 3.8 Chloride 103 Carbon Dioxide 26 Anion Gap 11 BUN 9 Creatinine 0.6 L Est GFR ( Amer) > 60 Est GFR (Non-Af Amer) > 60 POC Glucose (mg/dL) 185 H Random Glucose 189 H Calcium 9.0 Total Bilirubin 0.8 AST 19 ALT 32 Alkaline Phosphatase 105 Total Protein 6.9 Albumin 3.5 Globulin 3.4 Albumin/Globulin Ratio 1.0 L Laboratory Results - last 24 hr 08/09/17 08/09/17 08/09/17 06:00 11:32 12:37 WBC RBC Hgb Hct MCV MCH MCHC RDW Plt Count MPV Sodium Potassium Chloride Carbon Dioxide Anion Gap BUN Creatinine Est GFR ( Amer) Est GFR (Non-Af Amer) POC Glucose (mg/dL) 223 H Random Glucose Calcium Total Bilirubin AST ALT Alkaline Phosphatase Total Protein Albumin Globulin Albumin/Globulin Ratio Urine Color Yellow Urine Appearance Clear Urine pH 6.0 Ur Specific [place] 1.015 Urine Protein Negative Urine Glucose (UA) 500 H Urine Ketones Negative Urine Blood Large H Urine Nitrate Negative Urine Bilirubin Negative Urine Urobilinogen 1.0 H Ur Leukocyte Esterase Negative Urine RBC 0 - 2 Urine WBC 5 - 10 Ur Epithelial Cells 3 - 4 Urine Bacteria Small RPR Nonreactive 08/09/17 08/09/17 08/10/17 16:27 22:06 06:50 WBC 7.3 RBC 4.66 Hgb 12.8 Hct 37.2 MCV 79.8 L MCH 27.5 MCHC 34.4 RDW 14.2 Plt Count 224 MPV 11.3 H Sodium Potassium Chloride Carbon Dioxide Anion Gap BUN Creatinine Est GFR ( Amer) Est GFR (Non-Af Amer) POC Glucose (mg/dL) 132 H 296 H Random Glucose Calcium Total Bilirubin AST ALT Alkaline Phosphatase Total Protein Albumin Globulin Albumin/Globulin Ratio Urine Color Urine Appearance Urine pH Ur Specific [place] Urine Protein Urine Glucose (UA) Urine Ketones Urine Blood Urine Nitrate Urine Bilirubin Urine Urobilinogen Ur Leukocyte Esterase Urine RBC Urine WBC Ur Epithelial Cells Urine Bacteria RPR 08/10/17 08/10/17 06:50 08:39 WBC RBC Hgb Hct MCV MCH MCHC RDW Plt Count MPV Sodium 133 Potassium 4.0 Chloride 101 Carbon Dioxide 24 Anion Gap 13 BUN 11 Creatinine 0.6 L Est GFR ( Amer) > 60 Est GFR (Non-Af Amer) > 60 POC Glucose (mg/dL) 179 H Random Glucose 237 H Calcium 9.1 Total Bilirubin 0.8 AST 20 ALT 31 Alkaline Phosphatase 105 Total Protein 7.0 Albumin 3.6 Globulin 3.4 Albumin/Globulin Ratio 1.1 Urine Color Urine Appearance Urine pH Ur Specific [place] Urine Protein Urine Glucose (UA) Urine Ketones Urine Blood Urine Nitrate Urine Bilirubin Urine Urobilinogen Ur Leukocyte Esterase Urine RBC Urine WBC Ur Epithelial Cells Urine Bacteria RPR [facility] RESULTS CBC wnl Alk Phosphatase 122H [id number] UDS negative Ua= glucose >1000, Many RBC WBC 4-5 Bacteria FEW Acetaminophen<10 Salicylate <2.5 Family Contact Family involvement: No known Family/SO Discharge/Continuing Care - Treatment Team Participation Patient/Family/SO Statement: * grp, milieu and supportive tx * Haldol 10 mg po bid for hallucinations * Haldol Decanoate 75 mg IM ordered for 08/12/17 * Cogentin 0.5 mg po bid for EPS prophylaxis * Zoloft increased to 75 mg po daily for depression on 08/09/17 * Trazodone 50 mg HS for insomnia and depression * Haldol 5 mg + Ativan 2 mg + Benadryl 50 q6 prn: agitation * Contacted Dr. Lolis Jimenes who was listed as patient's psychiatrist on [facility] paperwork. Dr. Jimenes indicates that she no longer treats this patient. Dr. Jimenes reports that patient is schizophrenic and does not have Borderline Personality Disorder. Patient is generally a kind person who easily decompensates when she spends time out of her sister's home. * Appreciate f/u by Dr. Johnson on 08/09/17 * Vitals reviewed and noted below: Selected Entries 08/09/17 08/09/17 08/09/17 04:00 06:34 09:11 Temperature 97.8 F Pulse Rate 83 84 84 Respiratory 20 Rate Blood Pressure 106/70 107/67 107/67 [place] ER STUDIES 08/08/17 18:56 NSR @ 82 BPM, no ST elevation or depression, no T wave inversion PER ER: Chest xray show no active disease base on the ER wet read. PER ER:-Urine hcg is negative. Macrobid 100 MG x1 given in ER [place] [facility] Laboratory Results - last 24 hr 08/09/17 08/09/17 08/09/17 06:00 06:00 08:22 WBC 6.2 RBC 4.82 Hgb 13.0 Hct 38.2 MCV 79.3 L MCH 27.0 MCHC 34.0 RDW 14.1 Plt Count 211 MPV 10.4 Gran % 45.2 L Lymph % (Auto) 44.7 H [place] % (Auto) 6.9 H Eos % (Auto) 2.7 Baso % (Auto) 0.5 Gran # 2.79 Lymph # 2.8 [place] # 0.4 Eos # 0.2 Baso # 0.03 Sodium 136 Potassium 3.8 Chloride 103 Carbon Dioxide 26 Anion Gap 11 BUN 9 Creatinine 0.6 L Est GFR ( Amer) > 60 Est GFR (Non-Af Amer) > 60 POC Glucose (mg/dL) 185 H Random Glucose 189 H Calcium 9.0 Total Bilirubin 0.8 AST 19 ALT 32 Alkaline Phosphatase 105 Total Protein 6.9 Albumin 3.5 Globulin 3.4 Albumin/Globulin Ratio 1.0 L Laboratory Results - last 24 hr 08/09/17 08/09/17 08/09/17 06:00 11:32 12:37 WBC RBC Hgb Hct MCV MCH MCHC RDW Plt Count MPV Sodium Potassium Chloride Carbon Dioxide Anion Gap BUN Creatinine Est GFR ( Amer) Est GFR (Non-Af Amer) POC Glucose (mg/dL) 223 H Random Glucose Calcium Total Bilirubin AST ALT Alkaline Phosphatase Total Protein Albumin Globulin Albumin/Globulin Ratio Urine Color Yellow Urine Appearance Clear Urine pH 6.0 Ur Specific [place] 1.015 Urine Protein Negative Urine Glucose (UA) 500 H Urine Ketones Negative Urine Blood Large H Urine Nitrate Negative Urine Bilirubin Negative Urine Urobilinogen 1.0 H Ur Leukocyte Esterase Negative Urine RBC 0 - 2 Urine WBC 5 - 10 Ur Epithelial Cells 3 - 4 Urine Bacteria Small RPR Nonreactive 08/09/17 08/09/17 08/10/17 16:27 22:06 06:50 WBC 7.3 RBC 4.66 Hgb 12.8 Hct 37.2 MCV 79.8 L MCH 27.5 MCHC 34.4 RDW 14.2 Plt Count 224 MPV 11.3 H Sodium Potassium Chloride Carbon Dioxide Anion Gap BUN Creatinine Est GFR ( Amer) Est GFR (Non-Af Amer) POC Glucose (mg/dL) 132 H 296 H Random Glucose Calcium Total Bilirubin AST ALT Alkaline Phosphatase Total Protein Albumin Globulin Albumin/Globulin Ratio Urine Color Urine Appearance Urine pH Ur Specific [place] Urine Protein Urine Glucose (UA) Urine Ketones Urine Blood Urine Nitrate Urine Bilirubin Urine Urobilinogen Ur Leukocyte Esterase Urine RBC Urine WBC Ur Epithelial Cells Urine Bacteria RPR 08/10/17 08/10/17 06:50 08:39 WBC RBC Hgb Hct MCV MCH MCHC RDW Plt Count MPV Sodium 133 Potassium 4.0 Chloride 101 Carbon Dioxide 24 Anion Gap 13 BUN 11 Creatinine 0.6 L Est GFR ( Amer) > 60 Est GFR (Non-Af Amer) > 60 POC Glucose (mg/dL) 179 H Random Glucose 237 H Calcium 9.1 Total Bilirubin 0.8 AST 20 ALT 31 Alkaline Phosphatase 105 Total Protein 7.0 Albumin 3.6 Globulin 3.4 Albumin/Globulin Ratio 1.1 Urine Color Urine Appearance Urine pH Ur Specific [place] Urine Protein Urine Glucose (UA) Urine Ketones Urine Blood Urine Nitrate Urine Bilirubin Urine Urobilinogen Ur Leukocyte Esterase Urine RBC Urine WBC Ur Epithelial Cells Urine Bacteria RPR [facility] RESULTS CBC wnl Alk Phosphatase 122H [id number] UDS negative Ua= glucose >1000, Many RBC WBC 4-5 Bacteria FEW Acetaminophen<10 Salicylate <2.5
--- NOTE | 2017-08-12 14:44 | PCM.PYCHPN ---
Psychiatric Progress Note - Psychiatric Progress Note Patient seen today, length of contact: 30min Patient Chief Complaint: "I had suicidal thoughts, I told my psychiatrist, he called 911" Medical Problems: diabetes, hypertension, dyslipidemia Diagnostic Results: 08/10/17 06:50 08/10/17 06:50 Lab Results 08/11/17 07:15: POC Glucose (mg/dL) 142 H 08/10/17 21:47: POC Glucose (mg/dL) 219 H 08/10/17 15:51: POC Glucose (mg/dL) 137 H 08/10/17 13:10: Urine Color Yellow, Urine Appearance Clear, Urine pH 6.0, Ur Specific [place] 1.010, Urine Protein Negative, Urine Glucose (UA) >=1000, Urine Ketones Negative, Urine Blood Large H, Urine Nitrate Negative, Urine Bilirubin Negative, Urine Urobilinogen 0.2, Ur Leukocyte Esterase Negative, Urine RBC 0 - 2, Urine WBC 0 - 2, Ur Epithelial Cells 0 - 2, Amorphous Sediment Few, Urine Bacteria Small 08/10/17 11:42: POC Glucose (mg/dL) 281 H 08/10/17 08:39: POC Glucose (mg/dL) 179 H 08/10/17 06:50: Sodium 133, Potassium 4.0, Chloride 101, Carbon Dioxide 24, Anion Gap 13, BUN 11, Creatinine 0.6 L, Est GFR ( Amer) > 60, Est GFR ( Non-Af Amer) > 60, Random Glucose 237 H, Calcium 9.1, Total Bilirubin 0.8, AST 20, ALT 31, Alkaline Phosphatase 105, Total Protein 7.0, Albumin 3.6, Globulin 3.4, Albumin/Globulin Ratio 1.1 08/10/17 06:50: WBC 7.3, RBC 4.66, Hgb 12.8, Hct 37.2, MCV 79.8 L, MCH 27.5, MCHC 34.4, RDW 14.2, Plt Count 224, MPV 11.3 H 08/09/17 22:06: POC Glucose (mg/dL) 296 H 08/09/17 16:27: POC Glucose (mg/dL) 132 H 08/09/17 12:37: Urine Color Yellow, Urine Appearance Clear, Urine pH 6.0, Ur Specific [place] 1.015, Urine Protein Negative, Urine Glucose (UA) 500 H, Urine Ketones Negative, Urine Blood Large H, Urine Nitrate Negative, Urine Bilirubin Negative, Urine Urobilinogen 1.0 H, Ur Leukocyte Esterase Negative, Urine RBC 0 - 2, Urine WBC 5 - 10, Ur Epithelial Cells 3 - 4, Urine Bacteria Small 08/09/17 11:32: POC Glucose (mg/dL) 223 H 08/09/17 08:22: POC Glucose (mg/dL) 185 H 08/09/17 06:00: RPR Nonreactive 08/09/17 06:00: Sodium 136, Potassium 3.8, Chloride 103, Carbon Dioxide 26, Anion Gap 11, BUN 9, Creatinine 0.6 L, Est GFR ( Amer) > 60, Est GFR (Non -Af Amer) > 60, Random Glucose 189 H, Calcium 9.0, Total Bilirubin 0.8, AST 19, ALT 32, Alkaline Phosphatase 105, Total Protein 6.9, Albumin 3.5, Globulin 3.4, Albumin/Globulin Ratio 1.0 L 08/09/17 06:00: WBC 6.2, RBC 4.82, Hgb 13.0, Hct 38.2, MCV 79.3 L, MCH 27.0, MCHC 34.0, RDW 14.1, Plt Count 211, MPV 10.4, Gran % 45.2 L, Lymph % (Auto) 44.7 H, [place] % (Auto) 6.9 H, Eos % (Auto) 2.7, Baso % (Auto) 0.5, Gran # 2.79, Lymph # 2.8, [place] # 0.4, Eos # 0.2, Baso # 0.03 Vital Signs Temp Pulse Resp BP Pulse Ox 08/11/17 09:50 91 H 122/81 08/11/17 07:18 97.8 F 91 H 17 122/81 08/10/17 09:03 78 114/67 08/10/17 07:07 97.7 F 78 16 114/67 08/09/17 09:11 84 107/67 08/09/17 06:34 97.8 F 84 20 107/67 08/09/17 04:00 76 103/66 08/08/17 22:00 18 08/08/17 20:09 82 16 120/80 99 08/08/17 18:30 98.9 F 80 20 129/86 99 repeated UA showed no bacteria, clean, no need for antibiotics, d/w DSM 5 Symptoms Update: Patient is a single 37 y/o female with a psychiatric history of schizoaffective disorder and borderline personality disorder vs BIF, numerous prior admissions- most recently at [facility] ([facility]), history of suicide attempts most recently a year ago, in day treatment program at [facility], reported compliance with prescribed medications: Haldol Decanoate and Haldol po, Zoloft, trazodone and cogentin who was transferred from [facility] after being sent there by her day treatment program for depression, SI, and command auditory hallucinationsto kill herself. Patient reported to [facility] staff that she's been depressed for the last week and having suicidal thoughts to overdose on Tylenol. patient was seen in her room, s/p IM of haldol dec 100mg, pt tolerated it well. pt still disorganized, smiling inappropriately even if she was telling about suicidal thoughts, patient obviously is psychotic, disorganized, but overall very pleasant. SW obtained collaterals from the pt's IOP program, see her notes for more detailed information, pt has long h/o mental illness, developmental disability, 8kids under DYFS. As per nursing report, patient was calm, corporative, but needs strong encouragement to take a shower. Mental status examination: Patient appears at her chronological age, disorganized, intermittent eye contact , speech was underproductive, poverty of speech, mood described "I was depressed ", affect was labile, mood incongruent, thought process seems to be disorganized , there is poverty of thoughts, thought content: Patient reported to have hallucinations most recently was at the morning time, denied feeling paranoid, patient appears to be internally preoccupied and paranoid, patient denied thoughts of harming herself or others, denied intent or plan, insight and judgment are limited, impulses are unpredictable. Diagnostic Results: Schizoaffective Disorder Treatment plan: grp, milieu and supportive tx Haldol 10 mg po bid for hallucinations Haldol Decanoate 100 mg IM last does was 08/12/17 Cogentin 0.5 mg po bid for EPS prophylaxis Zoloft 75 mg po daily for depression Trazodone 50 mg HS for insomnia and depression Haldol 5 mg with Ativan 2 mg q6 prn: agitation Dr. Meléndez contacted Dr. Lolis Jimenes who was listed as patient's psychiatrist on [facility] paperwork. Dr. Jimenes indicates that she no longer treats this patient. Dr. Jimenes reports that patient is schizophrenic and does not have Borderline Personality Disorder. Patient is generally a kind person who easily decompensates when she spends time out of her sister's home. SW consultation for discharge plan and social issues Med management Family involvement Follow up on labs Will monitor closely SW evaluation for d/c planning Pt was educated about risk/benefits and alternatives of medications, coping strategies (safety plan, suicide prevention), relapse prevention, importance of follow up with psychiatrist and therapist, stay away from drugs/alcohol/smoking Medication Change: Yes (Haldol Decanoate was increased) Medical Record Reviewed: Yes Mental Status Examination - Cognitive Function Orientation: Person, Place, Situation Attention: WNL - Mood Mood: Depressed - Affect Affect: Constricted - Speech Speech: Appropriate - Formal Thought Process Formal Thought Process: Hallucinations - Suicidal Ideation Suicidal Ideation: No - Homicidal Ideation Homicidal Ideation: No Goal/Treatment Plan - Goal/Treatment Plan Need for Continued Stay: Remain at risks for inpatient hospitalization, Severe depression anxiety, Discharge may exacerbated symptoms, Severe functional impairment Progress Toward Problem(s) and Goals/Treatment Plan: * grp, milieu and supportive tx * Haldol 10 mg po bid for hallucinations * Haldol Decanoate 75 mg IM ordered for 08/12/17 * Cogentin 0.5 mg po bid for EPS prophylaxis * Zoloft increased to 75 mg po daily for depression on 08/09/17 * Trazodone 50 mg HS for insomnia and depression * Haldol 5 mg + Ativan 2 mg + Benadryl 50 q6 prn: agitation * Contacted Dr. Lolis Jimenes who was listed as patient's psychiatrist on [facility] paperwork. Dr. Jimenes indicates that she no longer treats this patient. Dr. Jimenes reports that patient is schizophrenic and does not have Borderline Personality Disorder. Patient is generally a kind person who easily decompensates when she spends time out of her sister's home. * Appreciate f/u by Dr. Johnson on 08/09/17 * Vitals reviewed and noted below: Selected Entries 08/09/17 08/09/17 08/09/17 04:00 06:34 09:11 Temperature 97.8 F Pulse Rate 83 84 84 Respiratory 20 Rate Blood Pressure 106/70 107/67 107/67 [facility] ER STUDIES 08/08/17 18:56 NSR @ 82 BPM, no ST elevation or depression, no T wave inversion PER ER: Chest xray show no active disease base on the ER wet read. PER ER:-Urine hcg is negative. Macrobid 100 MG x1 given in ER [facility] LABS Laboratory Results - last 24 hr 08/09/17 08/09/17 08/09/17 06:00 06:00 08:22 WBC 6.2 RBC 4.82 Hgb 13.0 Hct 38.2 MCV 79.3 L MCH 27.0 MCHC 34.0 RDW 14.1 Plt Count 211 MPV 10.4 Gran % 45.2 L Lymph % (Auto) 44.7 H [place] % (Auto) 6.9 H Eos % (Auto) 2.7 Baso % (Auto) 0.5 Gran # 2.79 Lymph # 2.8 [place] # 0.4 Eos # 0.2 Baso # 0.03 Sodium 136 Potassium 3.8 Chloride 103 Carbon Dioxide 26 Anion Gap 11 BUN 9 Creatinine 0.6 L Est GFR ( Amer) > 60 Est GFR (Non-Af Amer) > 60 POC Glucose (mg/dL) 185 H Random Glucose 189 H Calcium 9.0 Total Bilirubin 0.8 AST 19 ALT 32 Alkaline Phosphatase 105 Total Protein 6.9 Albumin 3.5 Globulin 3.4 Albumin/Globulin Ratio 1.0 L Laboratory Results - last 24 hr 08/09/17 08/09/17 08/09/17 06:00 11:32 12:37 WBC RBC Hgb Hct MCV MCH MCHC RDW Plt Count MPV Sodium Potassium Chloride Carbon Dioxide Anion Gap BUN Creatinine Est GFR ( Amer) Est GFR (Non-Af Amer) POC Glucose (mg/dL) 223 H Random Glucose Calcium Total Bilirubin AST ALT Alkaline Phosphatase Total Protein Albumin Globulin Albumin/Globulin Ratio Urine Color Yellow Urine Appearance Clear Urine pH 6.0 Ur Specific [place] 1.015 Urine Protein Negative Urine Glucose (UA) 500 H Urine Ketones Negative Urine Blood Large H Urine Nitrate Negative Urine Bilirubin Negative Urine Urobilinogen 1.0 H Ur Leukocyte Esterase Negative Urine RBC 0 - 2 Urine WBC 5 - 10 Ur Epithelial Cells 3 - 4 Urine Bacteria Small RPR Nonreactive 08/09/17 08/09/17 08/10/17 16:27 22:06 06:50 WBC 7.3 RBC 4.66 Hgb 12.8 Hct 37.2 MCV 79.8 L MCH 27.5 MCHC 34.4 RDW 14.2 Plt Count 224 MPV 11.3 H Sodium Potassium Chloride Carbon Dioxide Anion Gap BUN Creatinine Est GFR ( Amer) Est GFR (Non-Af Amer) POC Glucose (mg/dL) 132 H 296 H Random Glucose Calcium Total Bilirubin AST ALT Alkaline Phosphatase Total Protein Albumin Globulin Albumin/Globulin Ratio Urine Color Urine Appearance Urine pH Ur Specific [place] Urine Protein Urine Glucose (UA) Urine Ketones Urine Blood Urine Nitrate Urine Bilirubin Urine Urobilinogen Ur Leukocyte Esterase Urine RBC Urine WBC Ur Epithelial Cells Urine Bacteria RPR 08/10/17 08/10/17 06:50 08:39 WBC RBC Hgb Hct MCV MCH MCHC RDW Plt Count MPV Sodium 133 Potassium 4.0 Chloride 101 Carbon Dioxide 24 Anion Gap 13 BUN 11 Creatinine 0.6 L Est GFR ( Amer) > 60 Est GFR (Non-Af Amer) > 60 POC Glucose (mg/dL) 179 H Random Glucose 237 H Calcium 9.1 Total Bilirubin 0.8 AST 20 ALT 31 Alkaline Phosphatase 105 Total Protein 7.0 Albumin 3.6 Globulin 3.4 Albumin/Globulin Ratio 1.1 Urine Color Urine Appearance Urine pH Ur Specific [place] Urine Protein Urine Glucose (UA) Urine Ketones Urine Blood Urine Nitrate Urine Bilirubin Urine Urobilinogen Ur Leukocyte Esterase Urine RBC Urine WBC Ur Epithelial Cells Urine Bacteria RPR [facility] RESULTS CBC wnl Alk Phosphatase 122H [id number] UDS negative Ua= glucose >1000, Many RBC WBC 4-5 Bacteria FEW Acetaminophen<10 Salicylate <2.5 Estimated Date of D/C: 08/15/17 (will monitor closely)
[2017-08-12] MEDS ORDERED: Haloperidol Decanoate 100 mg/ml Inj IM ONE (21:25)
[2017-08-13] MEDS: Insulin Reg-MEDIUM-Coverage SC SCH ×4 (08:32→22:18)
--- NOTE | 2017-08-13 10:43 | PN ---
SUBJECTIVE: I saw Taina resting comfortably in bed. She slept well. She is feeling well. She is participating in group. She is eating well, smiling and doing much better mentally. No medical issues from this morning. MEDICATIONS: Ativan, Benadryl, Cogentin, Desyrel, Glucophage, Haldol, Januvia, Lipitor, Maalox, milk of magnesia, Tylenol, Zestril and Zoloft. PHYSICAL EXAMINATION VITAL SIGNS: 98.2 temp, 89 pulse, 109/70 blood pressure, 20 respiratory rate. HEENT: Head is atraumatic and normocephalic. HEART: Regular rate. LUNGS: Clear to auscultation. ABDOMEN: Soft. EXTREMITIES: No edema. LABORATORY DATA: Last labs on the that were good. Last blood sugar was 191 and 181. RPR was nonreactive. Overall she is doing well. Continue to follow. She is on medications for diabetes and insulin coverage. Zachary Johnson DO
--- NOTE | 2017-08-13 14:06 | PCM.PYCHPN ---
Psychiatric Progress Note - Psychiatric Progress Note Patient seen today, length of contact: 30min Patient Chief Complaint: "I heard male voice, telling me to harm myself.." Medical Problems: diabetes, hypertension, dyslipidemia Diagnostic Results: 08/10/17 06:50 08/10/17 06:50 Lab Results 08/11/17 07:15: POC Glucose (mg/dL) 142 H 08/10/17 21:47: POC Glucose (mg/dL) 219 H 08/10/17 15:51: POC Glucose (mg/dL) 137 H 08/10/17 13:10: Urine Color Yellow, Urine Appearance Clear, Urine pH 6.0, Ur Specific [place] 1.010, Urine Protein Negative, Urine Glucose (UA) >=1000, Urine Ketones Negative, Urine Blood Large H, Urine Nitrate Negative, Urine Bilirubin Negative, Urine Urobilinogen 0.2, Ur Leukocyte Esterase Negative, Urine RBC 0 - 2, Urine WBC 0 - 2, Ur Epithelial Cells 0 - 2, Amorphous Sediment Few, Urine Bacteria Small 08/10/17 11:42: POC Glucose (mg/dL) 281 H 08/10/17 08:39: POC Glucose (mg/dL) 179 H 08/10/17 06:50: Sodium 133, Potassium 4.0, Chloride 101, Carbon Dioxide 24, Anion Gap 13, BUN 11, Creatinine 0.6 L, Est GFR ( Amer) > 60, Est GFR ( Non-Af Amer) > 60, Random Glucose 237 H, Calcium 9.1, Total Bilirubin 0.8, AST 20, ALT 31, Alkaline Phosphatase 105, Total Protein 7.0, Albumin 3.6, Globulin 3.4, Albumin/Globulin Ratio 1.1 08/10/17 06:50: WBC 7.3, RBC 4.66, Hgb 12.8, Hct 37.2, MCV 79.8 L, MCH 27.5, MCHC 34.4, RDW 14.2, Plt Count 224, MPV 11.3 H 08/09/17 22:06: POC Glucose (mg/dL) 296 H 08/09/17 16:27: POC Glucose (mg/dL) 132 H 08/09/17 12:37: Urine Color Yellow, Urine Appearance Clear, Urine pH 6.0, Ur Specific [place] 1.015, Urine Protein Negative, Urine Glucose (UA) 500 H, Urine Ketones Negative, Urine Blood Large H, Urine Nitrate Negative, Urine Bilirubin Negative, Urine Urobilinogen 1.0 H, Ur Leukocyte Esterase Negative, Urine RBC 0 - 2, Urine WBC 5 - 10, Ur Epithelial Cells 3 - 4, Urine Bacteria Small 08/09/17 11:32: POC Glucose (mg/dL) 223 H 08/09/17 08:22: POC Glucose (mg/dL) 185 H 08/09/17 06:00: RPR Nonreactive 08/09/17 06:00: Sodium 136, Potassium 3.8, Chloride 103, Carbon Dioxide 26, Anion Gap 11, BUN 9, Creatinine 0.6 L, Est GFR ( Amer) > 60, Est GFR (Non -Af Amer) > 60, Random Glucose 189 H, Calcium 9.0, Total Bilirubin 0.8, AST 19, ALT 32, Alkaline Phosphatase 105, Total Protein 6.9, Albumin 3.5, Globulin 3.4, Albumin/Globulin Ratio 1.0 L 08/09/17 06:00: WBC 6.2, RBC 4.82, Hgb 13.0, Hct 38.2, MCV 79.3 L, MCH 27.0, MCHC 34.0, RDW 14.1, Plt Count 211, MPV 10.4, Gran % 45.2 L, Lymph % (Auto) 44.7 H, [place] % (Auto) 6.9 H, Eos % (Auto) 2.7, Baso % (Auto) 0.5, Gran # 2.79, Lymph # 2.8, [place] # 0.4, Eos # 0.2, Baso # 0.03 Vital Signs Temp Pulse Resp BP Pulse Ox 08/11/17 09:50 91 H 122/81 08/11/17 07:18 97.8 F 91 H 17 122/81 08/10/17 09:03 78 114/67 08/10/17 07:07 97.7 F 78 16 114/67 08/09/17 09:11 84 107/67 08/09/17 06:34 97.8 F 84 20 107/67 08/09/17 04:00 76 103/66 08/08/17 22:00 18 08/08/17 20:09 82 16 120/80 99 08/08/17 18:30 98.9 F 80 20 129/86 99 repeated UA showed no bacteria, clean, no need for antibiotics, d/w DSM 5 Symptoms Update: Patient is a single 37 y/o female with a psychiatric history of schizoaffective disorder and borderline personality disorder vs BIF, numerous prior admissions- most recently at [facility], history of suicide attempts most recently a year ago, in day treatment program at [facility], reported compliance with prescribed medications: Haldol Decanoate and Haldol po, Zoloft, trazodone and cogentin who was transferred from [facility] after being sent there by her day treatment program for depression, SI, and command auditory hallucinationsto kill herself. Patient reported to [facility] staff that she's been depressed for the last week and having suicidal thoughts to overdose on Tylenol. patient was seen in her room, 08/12/17 IM of haldol dec 100mg, pt tolerated it well. pt still disorganized, smiling inappropriately, pt said she heard voice of male today at am, "he told me to harm myself", pt is aware that "this voice is not real", pt c/o being depressed, c/o insomnia, pt c/o headache due to trazodone, willing to try sonata. patient obviously is psychotic, disorganized, but overall very pleasant. SW obtained collaterals from the pt's IOP program, see her notes for more detailed information, pt has long h/o mental illness, developmental disability, 8kids under DYFS. As per nursing report, patient was calm, corporative, but needs strong encouragement to take a shower. Mental status examination: Patient appears at her chronological age, disorganized, intermittent eye contact , speech was underproductive, poverty of speech, mood described "I am depressed ", affect was labile, mood incongruent, thought process seems to be disorganized , there is poverty of thoughts, thought content: Patient reported to have hallucinations most recently was at the morning time, "he told me to hurt myself , but I know he is not real" denied feeling paranoid, patient appears to be internally preoccupied and paranoid, patient denied thoughts of harming herself or others, denied intent or plan, insight and judgment are limited, impulses are unpredictable. Diagnostic Results: Schizoaffective Disorder Treatment plan: grp, milieu and supportive tx Haldol 10 mg po bid for hallucinations Haldol Decanoate 100 mg IM last does was 08/12/17 Cogentin 0.5 mg po bid for EPS prophylaxis Zoloft 100 mg po daily for depression Trazodone 50 mg HS for insomnia and depression Haldol 5 mg with Ativan 2 mg q6 prn: agitation Dr. Meléndez contacted Dr. Lolis Jimenes who was listed as patient's psychiatrist on [facility] paperwork. Dr. Jimenes indicates that she no longer treats this patient. Dr. Jimenes reports that patient is schizophrenic and does not have Borderline Personality Disorder. Patient is generally a kind person who easily decompensates when she spends time out of her sister's home. consultation for discharge plan and social issues Med management Family involvement Follow up on labs Will monitor closely SW evaluation for d/c planning Pt was educated about risk/benefits and alternatives of medications, coping strategies (safety plan, suicide prevention), relapse prevention, importance of follow up with psychiatrist and therapist, stay away from drugs/alcohol/smoking Medication Change: Yes (trazodone d/c, zoloft increased, sonata initiated) Medical Record Reviewed: Yes Consults ordered or reviewed: medical consultation appreciated Mental Status Examination - Cognitive Function Orientation: Person, Place, Situation Attention: WNL - Mood Mood: Depressed - Affect Affect: Constricted - Speech Speech: Appropriate - Formal Thought Process Formal Thought Process: Hallucinations - Suicidal Ideation Suicidal Ideation: No - Homicidal Ideation Homicidal Ideation: No Goal/Treatment Plan - Goal/Treatment Plan Need for Continued Stay: Remain at risks for inpatient hospitalization, Severe depression anxiety, Discharge may exacerbated symptoms, Severe functional impairment Progress Toward Problem(s) and Goals/Treatment Plan: * grp, milieu and supportive tx * Haldol 10 mg po bid for hallucinations * Haldol Decanoate 75 mg IM ordered for 08/12/17 * Cogentin 0.5 mg po bid for EPS prophylaxis * Zoloft increased to 75 mg po daily for depression on 08/09/17 * Trazodone 50 mg HS for insomnia and depression * Haldol 5 mg + Ativan 2 mg + Benadryl 50 q6 prn: agitation * Contacted Dr. Lolis Jimenes who was listed as patient's psychiatrist on [facility] paperwork. Dr. Jimenes indicates that she no longer treats this patient. Dr. Jimenes reports that patient is schizophrenic and does not have Borderline Personality Disorder. Patient is generally a kind person who easily decompensates when she spends time out of her sister's home. * Appreciate f/u by Dr. Johnson on 08/09/17 * Vitals reviewed and noted below: Selected Entries 08/09/17 08/09/17 08/09/17 04:00 06:34 09:11 Temperature 97.8 F Pulse Rate 83 84 84 Respiratory 20 Rate Blood Pressure 106/70 107/67 107/67 [facility] ER STUDIES 08/08/17 18:56 NSR @ 82 BPM, no ST elevation or depression, no T wave inversion PER ER: Chest xray show no active disease base on the ER wet read. PER ER:-Urine hcg is negative. Macrobid 100 MG x1 given in ER [facility] LABS Laboratory Results - last 24 hr 08/09/17 08/09/17 08/09/17 06:00 06:00 08:22 WBC 6.2 RBC 4.82 Hgb 13.0 Hct 38.2 MCV 79.3 L MCH 27.0 MCHC 34.0 RDW 14.1 Plt Count 211 MPV 10.4 Gran % 45.2 L Lymph % (Auto) 44.7 H [place] % (Auto) 6.9 H Eos % (Auto) 2.7 Baso % (Auto) 0.5 Gran # 2.79 Lymph # 2.8 [place] # 0.4 Eos # 0.2 Baso # 0.03 Sodium 136 Potassium 3.8 Chloride 103 Carbon Dioxide 26 Anion Gap 11 BUN 9 Creatinine 0.6 L Est GFR ( Amer) > 60 Est GFR (Non-Af Amer) > 60 POC Glucose (mg/dL) 185 H Random Glucose 189 H Calcium 9.0 Total Bilirubin 0.8 AST 19 ALT 32 Alkaline Phosphatase 105 Total Protein 6.9 Albumin 3.5 Globulin 3.4 Albumin/Globulin Ratio 1.0 L Laboratory Results - last 24 hr 08/09/17 08/09/17 08/09/17 06:00 11:32 12:37 WBC RBC Hgb Hct MCV MCH MCHC RDW Plt Count MPV Sodium Potassium Chloride Carbon Dioxide Anion Gap BUN Creatinine Est GFR ( Amer) Est GFR (Non-Af Amer) POC Glucose (mg/dL) 223 H Random Glucose Calcium Total Bilirubin AST ALT Alkaline Phosphatase Total Protein Albumin Globulin Albumin/Globulin Ratio Urine Color Yellow Urine Appearance Clear Urine pH 6.0 Ur Specific [place] 1.015 Urine Protein Negative Urine Glucose (UA) 500 H Urine Ketones Negative Urine Blood Large H Urine Nitrate Negative Urine Bilirubin Negative Urine Urobilinogen 1.0 H Ur Leukocyte Esterase Negative Urine RBC 0 - 2 Urine WBC 5 - 10 Ur Epithelial Cells 3 - 4 Urine Bacteria Small RPR Nonreactive 08/09/17 08/09/17 08/10/17 16:27 22:06 06:50 WBC 7.3 RBC 4.66 Hgb 12.8 Hct 37.2 MCV 79.8 L MCH 27.5 MCHC 34.4 RDW 14.2 Plt Count 224 MPV 11.3 H Sodium Potassium Chloride Carbon Dioxide Anion Gap BUN Creatinine Est GFR ( Amer) Est GFR (Non-Af Amer) POC Glucose (mg/dL) 132 H 296 H Random Glucose Calcium Total Bilirubin AST ALT Alkaline Phosphatase Total Protein Albumin Globulin Albumin/Globulin Ratio Urine Color Urine Appearance Urine pH Ur Specific [place] Urine Protein Urine Glucose (UA) Urine Ketones Urine Blood Urine Nitrate Urine Bilirubin Urine Urobilinogen Ur Leukocyte Esterase Urine RBC Urine WBC Ur Epithelial Cells Urine Bacteria RPR 08/10/17 08/10/17 06:50 08:39 WBC RBC Hgb Hct MCV MCH MCHC RDW Plt Count MPV Sodium 133 Potassium 4.0 Chloride 101 Carbon Dioxide 24 Anion Gap 13 BUN 11 Creatinine 0.6 L Est GFR ( Amer) > 60 Est GFR (Non-Af Amer) > 60 POC Glucose (mg/dL) 179 H Random Glucose 237 H Calcium 9.1 Total Bilirubin 0.8 AST 20 ALT 31 Alkaline Phosphatase 105 Total Protein 7.0 Albumin 3.6 Globulin 3.4 Albumin/Globulin Ratio 1.1 Urine Color Urine Appearance Urine pH Ur Specific [place] Urine Protein Urine Glucose (UA) Urine Ketones Urine Blood Urine Nitrate Urine Bilirubin Urine Urobilinogen Ur Leukocyte Esterase Urine RBC Urine WBC Ur Epithelial Cells Urine Bacteria RPR [facility] RESULTS CBC wnl Alk Phosphatase 122H [id number] UDS negative Ua= glucose >1000, Many RBC WBC 4-5 Bacteria FEW Acetaminophen<10 Salicylate <2.5 Estimated Date of D/C: 08/15/17 (will monitor closely)
[2017-08-14] MEDS: Insulin Reg-MEDIUM-Coverage SC SCH ×4 (08:29→21:16)
--- NOTE | 2017-08-14 13:51 | PN ---
DATE: SUBJECTIVE: I saw Taina resting comfortably in bed. She slept well. She is feeling better, less anxious. No suicidal thoughts, less depressed, smiling, and participating groups, in good spirits. MEDICATIONS: She is on Ativan, Benadryl, Glucophage, Haldol, Januvia, Lipitor, Maalox, milk of magnesia, Sonata, Tylenol, Zestril, and Zoloft. PHYSICAL EXAMINATION: VITAL SIGNS: 97.6 temp, 86 pulse, 118/77 blood pressure, and 18 respiratory rate. HEENT: Head is atraumatic and normocephalic. HEART: Regular rate. LUNGS: Clear to auscultation. ABDOMEN: Soft. EXTREMITIES: No edema. LABORATORY DATA: Labs done on , blood sugar was 147 and better. ASSESSMENT AND PLAN: Overall, I think she is improving mentally. She tells me she is going to be discharged on Friday sounds about right, we will continue to follow her medically. She will let me know if she needs anything. She was here for numerous reasons depression, suicidal ideation, anxiety, diabetes, hypertension, high cholesterol, and urinary tract infection. Zachary Johnson DO MTDD
--- NOTE | 2017-08-14 14:22 | PCM.PYCHPN ---
Psychiatric Progress Note - Psychiatric Progress Note Patient seen today, length of contact: 30min Patient Chief Complaint: "I am doing better" Medical Problems: diabetes, hypertension, dyslipidemia Diagnostic Results: 08/10/17 06:50 08/10/17 06:50 Lab Results 08/11/17 07:15: POC Glucose (mg/dL) 142 H 08/10/17 21:47: POC Glucose (mg/dL) 219 H 08/10/17 15:51: POC Glucose (mg/dL) 137 H 08/10/17 13:10: Urine Color Yellow, Urine Appearance Clear, Urine pH 6.0, Ur Specific [place] 1.010, Urine Protein Negative, Urine Glucose (UA) >=1000, Urine Ketones Negative, Urine Blood Large H, Urine Nitrate Negative, Urine Bilirubin Negative, Urine Urobilinogen 0.2, Ur Leukocyte Esterase Negative, Urine RBC 0 - 2, Urine WBC 0 - 2, Ur Epithelial Cells 0 - 2, Amorphous Sediment Few, Urine Bacteria Small 08/10/17 11:42: POC Glucose (mg/dL) 281 H 08/10/17 08:39: POC Glucose (mg/dL) 179 H 08/10/17 06:50: Sodium 133, Potassium 4.0, Chloride 101, Carbon Dioxide 24, Anion Gap 13, BUN 11, Creatinine 0.6 L, Est GFR ( Amer) > 60, Est GFR ( Non-Af Amer) > 60, Random Glucose 237 H, Calcium 9.1, Total Bilirubin 0.8, AST 20, ALT 31, Alkaline Phosphatase 105, Total Protein 7.0, Albumin 3.6, Globulin 3.4, Albumin/Globulin Ratio 1.1 08/10/17 06:50: WBC 7.3, RBC 4.66, Hgb 12.8, Hct 37.2, MCV 79.8 L, MCH 27.5, MCHC 34.4, RDW 14.2, Plt Count 224, MPV 11.3 H 08/09/17 22:06: POC Glucose (mg/dL) 296 H 08/09/17 16:27: POC Glucose (mg/dL) 132 H 08/09/17 12:37: Urine Color Yellow, Urine Appearance Clear, Urine pH 6.0, Ur Specific [place] 1.015, Urine Protein Negative, Urine Glucose (UA) 500 H, Urine Ketones Negative, Urine Blood Large H, Urine Nitrate Negative, Urine Bilirubin Negative, Urine Urobilinogen 1.0 H, Ur Leukocyte Esterase Negative, Urine RBC 0 - 2, Urine WBC 5 - 10, Ur Epithelial Cells 3 - 4, Urine Bacteria Small 08/09/17 11:32: POC Glucose (mg/dL) 223 H 08/09/17 08:22: POC Glucose (mg/dL) 185 H 08/09/17 06:00: RPR Nonreactive 08/09/17 06:00: Sodium 136, Potassium 3.8, Chloride 103, Carbon Dioxide 26, Anion Gap 11, BUN 9, Creatinine 0.6 L, Est GFR ( Amer) > 60, Est GFR (Non -Af Amer) > 60, Random Glucose 189 H, Calcium 9.0, Total Bilirubin 0.8, AST 19, ALT 32, Alkaline Phosphatase 105, Total Protein 6.9, Albumin 3.5, Globulin 3.4, Albumin/Globulin Ratio 1.0 L 08/09/17 06:00: WBC 6.2, RBC 4.82, Hgb 13.0, Hct 38.2, MCV 79.3 L, MCH 27.0, MCHC 34.0, RDW 14.1, Plt Count 211, MPV 10.4, Gran % 45.2 L, Lymph % (Auto) 44.7 H, [place] % (Auto) 6.9 H, Eos % (Auto) 2.7, Baso % (Auto) 0.5, Gran # 2.79, Lymph # 2.8, Pitt # 0.4, Eos # 0.2, Baso # 0.03 Vital Signs Temp Pulse Resp BP Pulse Ox 08/11/17 09:50 91 H 122/81 08/11/17 07:18 97.8 F 91 H 17 122/81 08/10/17 09:03 78 114/67 08/10/17 07:07 97.7 F 78 16 114/67 08/09/17 09:11 84 107/67 08/09/17 06:34 97.8 F 84 20 107/67 08/09/17 04:00 76 103/66 08/08/17 22:00 18 08/08/17 20:09 82 16 120/80 99 08/08/17 18:30 98.9 F 80 20 129/86 99 repeated UA showed no bacteria, clean, no need for antibiotics, d/w DSM 5 Symptoms Update: Patient is a single 37 y/o female with a psychiatric history of schizoaffective disorder and borderline personality disorder vs BIF, numerous prior admissions- most recently at [facility], history of suicide attempts most recently a year ago, in day treatment program at [facility], reported compliance with prescribed medications: Haldol Decanoate and Haldol po, Zoloft, trazodone and cogentin who was transferred from [facility] after being sent there by her day treatment program for depression, SI, and command auditory hallucinationsto kill herself. Patient reported to [facility] staff that she's been depressed for the last week and having suicidal thoughts to overdose on Tylenol. patient was seen in her room, 08/12/17 IM of haldol dec 100mg, pt tolerated it well. pt still disorganized, smiling inappropriately, but overall very pleasant, slept better on sonata, pt is low profile, self isolating, not socializing. poor hygiene. SW obtained collaterals from the pt's IOP program, see her notes for more detailed information, pt has long h/o mental illness, developmental disability, 8kids under DYFS. As per nursing report, patient was calm, corporative, but needs strong encouragement to take a shower. Mental status examination: Patient appears at her chronological age, disorganized, intermittent eye contact , speech was underproductive, poverty of speech, mood described "I am okay", affect was labile, mood incongruent, thought process seems to be disorganized, there is poverty of thoughts, thought content: Patient reported to have hallucinations most recently was at the morning time, "he told me to hurt myself , but I know he is not real" denied feeling paranoid, patient appears to be internally preoccupied and paranoid, patient denied thoughts of harming herself or others, denied intent or plan, insight and judgment are limited, impulses are unpredictable. Diagnostic Results: Schizoaffective Disorder Treatment plan: grp, milieu and supportive tx Haldol 10 mg po bid for hallucinations Haldol Decanoate 100 mg IM last does was 08/12/17 Cogentin 0.5 mg po bid for EPS prophylaxis Zoloft 100 mg po daily for depression Trazodone 50 mg HS for insomnia and depression Haldol 5 mg with Ativan 2 mg q6 prn: agitation Dr. Meléndez contacted Dr. Lolis Jimenes who was listed as patient's psychiatrist on [facility] paperwork. Dr. Jimenes indicates that she no longer treats this patient. Dr. Jimenes reports that patient is schizophrenic and does not have Borderline Personality Disorder. Patient is generally a kind person who easily decompensates when she spends time out of her sister's home. consultation for discharge plan and social issues Med management Family involvement Follow up on labs Will monitor closely SW evaluation for d/c planning Pt was educated about risk/benefits and alternatives of medications, coping strategies (safety plan, suicide prevention), relapse prevention, importance of follow up with psychiatrist and therapist, stay away from drugs/alcohol/smoking Medication Change: Yes (trazodone d/c, zoloft increased, sonata initiated yesterday) Medical Record Reviewed: Yes Mental Status Examination - Cognitive Function Orientation: Person, Place, Situation Attention: WNL - Mood Mood: Depressed - Affect Affect: Constricted - Speech Speech: Appropriate - Formal Thought Process Formal Thought Process: Hallucinations - Suicidal Ideation Suicidal Ideation: No - Homicidal Ideation Homicidal Ideation: No Goal/Treatment Plan - Goal/Treatment Plan Need for Continued Stay: Remain at risks for inpatient hospitalization, Severe depression anxiety, Discharge may exacerbated symptoms, Severe functional impairment Progress Toward Problem(s) and Goals/Treatment Plan: * grp, milieu and supportive tx * Haldol 10 mg po bid for hallucinations * Haldol Decanoate 75 mg IM ordered for 08/12/17 * Cogentin 0.5 mg po bid for EPS prophylaxis * Zoloft increased to 75 mg po daily for depression on 08/09/17 * Trazodone 50 mg HS for insomnia and depression * Haldol 5 mg + Ativan 2 mg + Benadryl 50 q6 prn: agitation * Contacted Dr. Lolis Jimenes who was listed as patient's psychiatrist on [facility] paperwork. Dr. Jimenes indicates that she no longer treats this patient. Dr. Jimenes reports that patient is schizophrenic and does not have Borderline Personality Disorder. Patient is generally a kind person who easily decompensates when she spends time out of her sister's home. * Appreciate f/u by Dr. Johnson on 08/09/17 * Vitals reviewed and noted below: Selected Entries 08/09/17 08/09/17 08/09/17 04:00 06:34 09:11 Temperature 97.8 F Pulse Rate 83 84 84 Respiratory 20 Rate Blood Pressure 106/70 107/67 107/67 [place] 08/08/17 18:56 NSR @ 82 BPM, no ST elevation or depression, no T wave inversion PER ER: Chest xray show no active disease base on the ER wet read. PER ER:-Urine hcg is negative. Macrobid 100 MG x1 given in ER [facility] Laboratory Results - last 24 hr 08/09/17 08/09/17 08/09/17 06:00 06:00 08:22 WBC 6.2 RBC 4.82 Hgb 13.0 Hct 38.2 MCV 79.3 L MCH 27.0 MCHC 34.0 RDW 14.1 Plt Count 211 MPV 10.4 Gran % 45.2 L Lymph % (Auto) 44.7 H Pitt % (Auto) 6.9 H Eos % (Auto) 2.7 Baso % (Auto) 0.5 Gran # 2.79 Lymph # 2.8 Pitt # 0.4 Eos # 0.2 Baso # 0.03 Sodium 136 Potassium 3.8 Chloride 103 Carbon Dioxide 26 Anion Gap 11 BUN 9 Creatinine 0.6 L Est GFR ( Amer) > 60 Est GFR (Non-Af Amer) > 60 POC Glucose (mg/dL) 185 H Random Glucose 189 H Calcium 9.0 Total Bilirubin 0.8 AST 19 ALT 32 Alkaline Phosphatase 105 Total Protein 6.9 Albumin 3.5 Globulin 3.4 Albumin/Globulin Ratio 1.0 L Laboratory Results - last 24 hr 08/09/17 08/09/17 08/09/17 06:00 11:32 12:37 WBC RBC Hgb Hct MCV MCH MCHC RDW Plt Count MPV Sodium Potassium Chloride Carbon Dioxide Anion Gap BUN Creatinine Est GFR ( Amer) Est GFR (Non-Af Amer) POC Glucose (mg/dL) 223 H Random Glucose Calcium Total Bilirubin AST ALT Alkaline Phosphatase Total Protein Albumin Globulin Albumin/Globulin Ratio Urine Color Yellow Urine Appearance Clear Urine pH 6.0 Ur Specific [place] 1.015 Urine Protein Negative Urine Glucose (UA) 500 H Urine Ketones Negative Urine Blood Large H Urine Nitrate Negative Urine Bilirubin Negative Urine Urobilinogen 1.0 H Ur Leukocyte Esterase Negative Urine RBC 0 - 2 Urine WBC 5 - 10 Ur Epithelial Cells 3 - 4 Urine Bacteria Small RPR Nonreactive 08/09/17 08/09/17 08/10/17 16:27 22:06 06:50 WBC 7.3 RBC 4.66 Hgb 12.8 Hct 37.2 MCV 79.8 L MCH 27.5 MCHC 34.4 RDW 14.2 Plt Count 224 MPV 11.3 H Sodium Potassium Chloride Carbon Dioxide Anion Gap BUN Creatinine Est GFR ( Amer) Est GFR (Non-Af Amer) POC Glucose (mg/dL) 132 H 296 H Random Glucose Calcium Total Bilirubin AST ALT Alkaline Phosphatase Total Protein Albumin Globulin Albumin/Globulin Ratio Urine Color Urine Appearance Urine pH Ur Specific [place] Urine Protein Urine Glucose (UA) Urine Ketones Urine Blood Urine Nitrate Urine Bilirubin Urine Urobilinogen Ur Leukocyte Esterase Urine RBC Urine WBC Ur Epithelial Cells Urine Bacteria RPR 08/10/17 08/10/17 06:50 08:39 WBC RBC Hgb Hct MCV MCH MCHC RDW Plt Count MPV Sodium 133 Potassium 4.0 Chloride 101 Carbon Dioxide 24 Anion Gap 13 BUN 11 Creatinine 0.6 L Est GFR ( Amer) > 60 Est GFR (Non-Af Amer) > 60 POC Glucose (mg/dL) 179 H Random Glucose 237 H Calcium 9.1 Total Bilirubin 0.8 AST 20 ALT 31 Alkaline Phosphatase 105 Total Protein 7.0 Albumin 3.6 Globulin 3.4 Albumin/Globulin Ratio 1.1 Urine Color Urine Appearance Urine pH Ur Specific [place] Urine Protein Urine Glucose (UA) Urine Ketones Urine Blood Urine Nitrate Urine Bilirubin Urine Urobilinogen Ur Leukocyte Esterase Urine RBC Urine WBC Ur Epithelial Cells Urine Bacteria RPR [facility] RESULTS CBC wnl Alk Phosphatase 122H [id number] UDS negative Ua= glucose >1000, Many RBC WBC 4-5 Bacteria FEW Acetaminophen<10 Salicylate <2.5 Estimated Date of D/C: 08/15/17 (will monitor closely)
[2017-08-15] MEDS: Insulin Reg-MEDIUM-Coverage SC SCH ×4 (08:13→21:25)
--- NOTE | 2017-08-15 11:05 | PN ---
DATE: SUBJECTIVE: I saw Taina on the psychiatric floor. She is resting comfortably. She slept fairly well. She is eating better. She is participating in groups. She is getting around the unit better and she is eating. She is also telling me those feelings are r improving with depression and suicidal thoughts, anxiety is lessening. She also still has diabetes, hypertension, high cholesterol, and urinary tract infection and she had nausea and vomiting when she first came in. Right now, she is on Ativan, Benadryl, Cogentin, Glucophage, Haldol, Januvia, Lipitor, Maalox, milk of magnesia, Sonata, Tylenol, Zestril, and Zoloft. PHYSICAL EXAMINATION: GENERAL: She is alert, talking with me, comfortable, smiling. VITAL SIGNS: 97.7 temperature, 89 pulse, 117/84 blood pressure, and 20 respiratory rate. HEENT: Head is atraumatic and normocephalic. Throat is moist. NECK: Supple. HEART: Regular rate. LUNGS: Decreased breath sounds. Poor inspiration with no wheezes. No rhonchi. No rales. ABDOMEN: Soft and nontender. Positive bowel sounds. No guarding. No wheezing. No rebound. She is obese. EXTREMITIES: No edema. LABORATORY DATA: Last labs on the , she did well. Last blood sugar was 137, we got the last 4 or 5 blood sugars under all 180, which is great. ASSESSMENT AND PLAN: We will continue with aggressive treatment and care. She was seen by Psychiatry. She is doing quite well. This is a progress note on Taina Billy, we will continue to follow. Checking her blood sugars and blood pressure. Zachary Johnson DO
--- NOTE | 2017-08-15 13:50 | PCM.PYCHPN ---
Psychiatric Progress Note - Psychiatric Progress Note Patient seen today, length of contact: 30min Patient Chief Complaint: "I am depressed, that is why I am in my bed, I also did not sleep well" Medical Problems: diabetes, hypertension, dyslipidemia Diagnostic Results: 08/10/17 06:50 08/10/17 06:50 Lab Results 08/11/17 07:15: POC Glucose (mg/dL) 142 H 08/10/17 21:47: POC Glucose (mg/dL) 219 H 08/10/17 15:51: POC Glucose (mg/dL) 137 H 08/10/17 13:10: Urine Color Yellow, Urine Appearance Clear, Urine pH 6.0, Ur Specific [place] 1.010, Urine Protein Negative, Urine Glucose (UA) >=1000, Urine Ketones Negative, Urine Blood Large H, Urine Nitrate Negative, Urine Bilirubin Negative, Urine Urobilinogen 0.2, Ur Leukocyte Esterase Negative, Urine RBC 0 - 2, Urine WBC 0 - 2, Ur Epithelial Cells 0 - 2, Amorphous Sediment Few, Urine Bacteria Small 08/10/17 11:42: POC Glucose (mg/dL) 281 H 08/10/17 08:39: POC Glucose (mg/dL) 179 H 08/10/17 06:50: Sodium 133, Potassium 4.0, Chloride 101, Carbon Dioxide 24, Anion Gap 13, BUN 11, Creatinine 0.6 L, Est GFR ( Amer) > 60, Est GFR ( Non-Af Amer) > 60, Random Glucose 237 H, Calcium 9.1, Total Bilirubin 0.8, AST 20, ALT 31, Alkaline Phosphatase 105, Total Protein 7.0, Albumin 3.6, Globulin 3.4, Albumin/Globulin Ratio 1.1 08/10/17 06:50: WBC 7.3, RBC 4.66, Hgb 12.8, Hct 37.2, MCV 79.8 L, MCH 27.5, MCHC 34.4, RDW 14.2, Plt Count 224, MPV 11.3 H 08/09/17 22:06: POC Glucose (mg/dL) 296 H 08/09/17 16:27: POC Glucose (mg/dL) 132 H 08/09/17 12:37: Urine Color Yellow, Urine Appearance Clear, Urine pH 6.0, Ur Specific [place] 1.015, Urine Protein Negative, Urine Glucose (UA) 500 H, Urine Ketones Negative, Urine Blood Large H, Urine Nitrate Negative, Urine Bilirubin Negative, Urine Urobilinogen 1.0 H, Ur Leukocyte Esterase Negative, Urine RBC 0 - 2, Urine WBC 5 - 10, Ur Epithelial Cells 3 - 4, Urine Bacteria Small 08/09/17 11:32: POC Glucose (mg/dL) 223 H 08/09/17 08:22: POC Glucose (mg/dL) 185 H 08/09/17 06:00: RPR Nonreactive 08/09/17 06:00: Sodium 136, Potassium 3.8, Chloride 103, Carbon Dioxide 26, Anion Gap 11, BUN 9, Creatinine 0.6 L, Est GFR ( Amer) > 60, Est GFR (Non -Af Amer) > 60, Random Glucose 189 H, Calcium 9.0, Total Bilirubin 0.8, AST 19, ALT 32, Alkaline Phosphatase 105, Total Protein 6.9, Albumin 3.5, Globulin 3.4, Albumin/Globulin Ratio 1.0 L 08/09/17 06:00: WBC 6.2, RBC 4.82, Hgb 13.0, Hct 38.2, MCV 79.3 L, MCH 27.0, MCHC 34.0, RDW 14.1, Plt Count 211, MPV 10.4, Gran % 45.2 L, Lymph % (Auto) 44.7 H, [place] % (Auto) 6.9 H, Eos % (Auto) 2.7, Baso % (Auto) 0.5, Gran # 2.79, Lymph # 2.8, [place] # 0.4, Eos # 0.2, Baso # 0.03 Vital Signs Temp Pulse Resp BP Pulse Ox 08/11/17 09:50 91 H 122/81 08/11/17 07:18 97.8 F 91 H 17 122/81 08/10/17 09:03 78 114/67 08/10/17 07:07 97.7 F 78 16 114/67 08/09/17 09:11 84 107/67 08/09/17 06:34 97.8 F 84 20 107/67 08/09/17 04:00 76 103/66 08/08/17 22:00 18 08/08/17 20:09 82 16 120/80 99 11/17/17 18:30 98.9 F 80 20 129/86 99 repeated UA showed no bacteria, clean, no need for antibiotics, d/w DSM 5 Symptoms Update: Patient is a single 37 y/o female with a psychiatric history of schizoaffective disorder and borderline personality disorder vs BIF, numerous prior admissions- most recently at [facility], history of suicide attempts most recently a year ago, in day treatment program at [facility], reported compliance with prescribed medications: Haldol Decanoate and Haldol po, Zoloft, trazodone and cogentin who was transferred from [facility] after being sent there by her day treatment program for depression, SI, and command auditory hallucinationsto kill herself. Patient reported to [facility] staff that she's been depressed for the last week and having suicidal thoughts to overdose on Tylenol. patient was seen in her room, 08/12/17 IM of haldol dec 100mg, pt tolerated it well. pt still disorganized, smiling inappropriately, but overall very pleasant, pt said that she feels depressed, asked to increase Zoloft, also pt said that she did not sleep well, pt reported that hallucinations are under control. SW obtained collaterals from the pt's IOP program, see her notes for more detailed information, pt has long h/o mental illness, developmental disability, 8kids under DYFS. As per nursing report, patient was calm, corporative, but needs strong encouragement to take a shower. Mental status examination: Patient appears at her chronological age, disorganized, intermittent eye contact , speech was underproductive, poverty of speech, mood described "I am okay", affect was labile, mood incongruent, thought process seems to be disorganized, there is poverty of thoughts, thought content: Patient reported to have hallucinations most recently was at the morning time, "he told me to hurt myself , but I know he is not real" denied feeling paranoid, patient appears to be internally preoccupied and paranoid, patient denied thoughts of harming herself or others, denied intent or plan, insight and judgment are limited, impulses are unpredictable. Diagnostic Results: Schizoaffective Disorder Treatment plan: grp, milieu and supportive tx Haldol 10 mg po bid for hallucinations Haldol Decanoate 100 mg IM last does was 11/21/17 Cogentin 0.5 mg po bid for EPS prophylaxis Zoloft 150 mg po daily for depression sonata will be increased to 10mg po hs for insomnia Haldol 5 mg with Ativan 2 mg q6 prn: agitation Dr. Meléndez contacted Dr. Lolis Jimenes who was listed as patient's psychiatrist on [facility] paperwork. Dr. Jimenes indicates that she no longer treats this patient. Dr. Jimenes reports that patient is schizophrenic and does not have Borderline Personality Disorder. Patient is generally a kind person who easily decompensates when she spends time out of her sister's home. consultation for discharge plan and social issues Med management Family involvement Follow up on labs Will monitor closely SW evaluation for d/c planning Pt was educated about risk/benefits and alternatives of medications, coping strategies (safety plan, suicide prevention), relapse prevention, importance of follow up with psychiatrist and therapist, stay away from drugs/alcohol/smoking Medication Change: Yes (zoloft increased, sonata increased) Medical Record Reviewed: Yes Mental Status Examination - Cognitive Function Orientation: Person, Place, Situation Attention: WNL - Mood Mood: Depressed - Affect Affect: Constricted - Speech Speech: Appropriate - Formal Thought Process Formal Thought Process: Hallucinations - Suicidal Ideation Suicidal Ideation: No - Homicidal Ideation Homicidal Ideation: No Goal/Treatment Plan - Goal/Treatment Plan Need for Continued Stay: Remain at risks for inpatient hospitalization, Severe depression anxiety, Discharge may exacerbated symptoms, Severe functional impairment Progress Toward Problem(s) and Goals/Treatment Plan: * grp, milieu and supportive tx * Haldol 10 mg po bid for hallucinations * Haldol Decanoate 75 mg IM ordered for 08/12/17 * Cogentin 0.5 mg po bid for EPS prophylaxis * Zoloft increased to 75 mg po daily for depression on 08/09/17 * Trazodone 50 mg HS for insomnia and depression * Haldol 5 mg + Ativan 2 mg + Benadryl 50 q6 prn: agitation * Contacted Dr. Lolis Jimenes who was listed as patient's psychiatrist on [facility] paperwork. Dr. Jimenes indicates that she no longer treats this patient. Dr. Jimenes reports that patient is schizophrenic and does not have Borderline Personality Disorder. Patient is generally a kind person who easily decompensates when she spends time out of her sister's home. * Appreciate f/u by Dr. Johnson on 08/09/17 * Vitals reviewed and noted below: Selected Entries 08/09/17 08/09/17 08/09/17 04:00 06:34 09:11 Temperature 97.8 F Pulse Rate 83 84 84 Respiratory 20 Rate Blood Pressure 106/70 107/67 107/67 [facility] 08/08/17 18:56 NSR @ 82 BPM, no ST elevation or depression, no T wave inversion PER ER: Chest xray show no active disease base on the ER wet read. PER ER:-Urine hcg is negative. Macrobid 100 MG x1 given in ER [facility] Laboratory Results - last 24 hr 08/09/17 08/09/17 08/09/17 06:00 06:00 08:22 WBC 6.2 RBC 4.82 Hgb 13.0 Hct 38.2 MCV 79.3 L MCH 27.0 MCHC 34.0 RDW 14.1 Plt Count 211 MPV 10.4 Gran % 45.2 L Lymph % (Auto) 44.7 H [place] % (Auto) 6.9 H Eos % (Auto) 2.7 Baso % (Auto) 0.5 Gran # 2.79 Lymph # 2.8 [place] # 0.4 Eos # 0.2 Baso # 0.03 Sodium 136 Potassium 3.8 Chloride 103 Carbon Dioxide 26 Anion Gap 11 BUN 9 Creatinine 0.6 L Est GFR ( Amer) > 60 Est GFR (Non-Af Amer) > 60 POC Glucose (mg/dL) 185 H Random Glucose 189 H Calcium 9.0 Total Bilirubin 0.8 AST 19 ALT 32 Alkaline Phosphatase 105 Total Protein 6.9 Albumin 3.5 Globulin 3.4 Albumin/Globulin Ratio 1.0 L Laboratory Results - last 24 hr 08/09/17 08/09/17 08/09/17 06:00 11:32 12:37 WBC RBC Hgb Hct MCV MCH MCHC RDW Plt Count MPV Sodium Potassium Chloride Carbon Dioxide Anion Gap BUN Creatinine Est GFR ( Amer) Est GFR (Non-Af Amer) POC Glucose (mg/dL) 223 H Random Glucose Calcium Total Bilirubin AST ALT Alkaline Phosphatase Total Protein Albumin Globulin Albumin/Globulin Ratio Urine Color Yellow Urine Appearance Clear Urine pH 6.0 Ur Specific [place] 1.015 Urine Protein Negative Urine Glucose (UA) 500 H Urine Ketones Negative Urine Blood Large H Urine Nitrate Negative Urine Bilirubin Negative Urine Urobilinogen 1.0 H Ur Leukocyte Esterase Negative Urine RBC 0 - 2 Urine WBC 5 - 10 Ur Epithelial Cells 3 - 4 Urine Bacteria Small RPR Nonreactive 08/09/17 08/09/17 08/10/17 16:27 22:06 06:50 WBC 7.3 RBC 4.66 Hgb 12.8 Hct 37.2 MCV 79.8 L MCH 27.5 MCHC 34.4 RDW 14.2 Plt Count 224 MPV 11.3 H Sodium Potassium Chloride Carbon Dioxide Anion Gap BUN Creatinine Est GFR ( Amer) Est GFR (Non-Af Amer) POC Glucose (mg/dL) 132 H 296 H Random Glucose Calcium Total Bilirubin AST ALT Alkaline Phosphatase Total Protein Albumin Globulin Albumin/Globulin Ratio Urine Color Urine Appearance Urine pH Ur Specific [place] Urine Protein Urine Glucose (UA) Urine Ketones Urine Blood Urine Nitrate Urine Bilirubin Urine Urobilinogen Ur Leukocyte Esterase Urine RBC Urine WBC Ur Epithelial Cells Urine Bacteria RPR 08/10/17 08/10/17 06:50 08:39 WBC RBC Hgb Hct MCV MCH MCHC RDW Plt Count MPV Sodium 133 Potassium 4.0 Chloride 101 Carbon Dioxide 24 Anion Gap 13 BUN 11 Creatinine 0.6 L Est GFR ( Amer) > 60 Est GFR (Non-Af Amer) > 60 POC Glucose (mg/dL) 179 H Random Glucose 237 H Calcium 9.1 Total Bilirubin 0.8 AST 20 ALT 31 Alkaline Phosphatase 105 Total Protein 7.0 Albumin 3.6 Globulin 3.4 Albumin/Globulin Ratio 1.1 Urine Color Urine Appearance Urine pH Ur Specific [place] Urine Protein Urine Glucose (UA) Urine Ketones Urine Blood Urine Nitrate Urine Bilirubin Urine Urobilinogen Ur Leukocyte Esterase Urine RBC Urine WBC Ur Epithelial Cells Urine Bacteria RPR [facility] RESULTS CBC wnl Alk Phosphatase 122H [id number] UDS negative Ua= glucose >1000, Many RBC WBC 4-5 Bacteria FEW Acetaminophen<10 Salicylate <2.5 Estimated Date of D/C: 08/19/17 (will monitor closely)
[2017-08-16] MEDS: Insulin Reg-MEDIUM-Coverage SC SCH ×4 (08:39→21:37)
--- NOTE | 2017-08-16 08:57 | PCM.PYCHPN ---
Psychiatric Progress Note - Psychiatric Progress Note Patient seen today, length of contact: 25 min Patient Chief Complaint: "depression is improving, feel more hopeful" Problems Identified/Issues Discussed: I reviewed recent notes and met with patient at bedside. Patient is known to me from prior interviews last week. She remains unkempt, oddly related and internally preoccupied. Soft spoken and oriented x3. She reports that depression is improving and that she feels more hopeful. Hallucinations are also improving, patient states "I know they aren't real". Affect remains constricted and her responses are brief and superficial. Patient denied thoughts of harming herself or others, denied intent or plan. Staff notes indicate that patient is still disorganized but generally pleasant and cooperative. Doesn't participate In groups. There were no behavioral issues over the weekend Diagnostic Results: Schizoaffective Disorder Medication Change: No ( ) Medical Record Reviewed: Yes Mental Status Examination - Cognitive Function Orientation: Person, Place, Situation Attention: WNL - Mood Mood: Depressed ("depression is improving, feel more hopeful") - Affect Affect: Constricted - Speech Speech: Appropriate - Formal Thought Process Formal Thought Process: Hallucinations (improving "I know they aren't real") - Suicidal Ideation Suicidal Ideation: No - Homicidal Ideation Homicidal Ideation: No Goal/Treatment Plan - Goal/Treatment Plan Need for Continued Stay: Remain at risks for inpatient hospitalization, Severe depression anxiety, Discharge may exacerbated symptoms, Severe functional impairment Progress Toward Problem(s) and Goals/Treatment Plan: * grp, milieu and supportive tx * Haldol 10 mg po bid for hallucinations * Haldol Decanoate 75 mg IM, most recent dose was on 08/12/17 * Cogentin 0.5 mg po bid for EPS prophylaxis * Zoloft 150 mg po daily for depression * Sonata 10 mg po HS for insomnia * Haldol 5 mg + Ativan 2 mg + Benadryl 50 q6 prn: agitation * Contacted Dr. Lolis Jimenes who was listed as patient's psychiatrist on [facility] paperwork. Dr. Jimenes indicates that she no longer treats this patient. Dr. Jimenes reports that patient is schizophrenic and does not have Borderline Personality Disorder. Patient is generally a kind person who easily decompensates when she spends time out of her sister's home. * Vitals reviewed and noted below: Selected Entries 08/14/17 08/15/17 08/15/17 15:56 06:53 09:14 Temperature 97.7 F Pulse Rate 96 H 89 89 Respiratory 20 Rate Blood Pressure 110/66 117/84 117/84 08/15/17 16:17 Temperature 98.0 F Pulse Rate 97 H Respiratory Rate Blood Pressure 115/79 [facility] Laboratory Results - last 24 hr 08/09/17 08/09/17 08/09/17 06:00 06:00 08:22 WBC 6.2 RBC 4.82 Hgb 13.0 Hct 38.2 MCV 79.3 L MCH 27.0 MCHC 34.0 RDW 14.1 Plt Count 211 MPV 10.4 Gran % 45.2 L Lymph % (Auto) 44.7 H [place] % (Auto) 6.9 H Eos % (Auto) 2.7 Baso % (Auto) 0.5 Gran # 2.79 Lymph # 2.8 Vance # 0.4 Eos # 0.2 Baso # 0.03 Sodium 136 Potassium 3.8 Chloride 103 Carbon Dioxide 26 Anion Gap 11 BUN 9 Creatinine 0.6 L Est GFR ( Amer) > 60 Est GFR (Non-Af Amer) > 60 POC Glucose (mg/dL) 185 H Random Glucose 189 H Calcium 9.0 Total Bilirubin 0.8 AST 19 ALT 32 Alkaline Phosphatase 105 Total Protein 6.9 Albumin 3.5 Globulin 3.4 Albumin/Globulin Ratio 1.0 L Laboratory Results - last 24 hr 08/09/17 08/09/17 08/09/17 06:00 11:32 12:37 WBC RBC Hgb Hct MCV MCH MCHC RDW Plt Count MPV Sodium Potassium Chloride Carbon Dioxide Anion Gap BUN Creatinine Est GFR ( Amer) Est GFR (Non-Af Amer) POC Glucose (mg/dL) 223 H Random Glucose Calcium Total Bilirubin AST ALT Alkaline Phosphatase Total Protein Albumin Globulin Albumin/Globulin Ratio Urine Color Yellow Urine Appearance Clear Urine pH 6.0 Ur Specific [place] 1.015 Urine Protein Negative Urine Glucose (UA) 500 H Urine Ketones Negative Urine Blood Large H Urine Nitrate Negative Urine Bilirubin Negative Urine Urobilinogen 1.0 H Ur Leukocyte Esterase Negative Urine RBC 0 - 2 Urine WBC 5 - 10 Ur Epithelial Cells 3 - 4 Urine Bacteria Small RPR Nonreactive 08/09/17 08/09/17 08/10/17 16:27 22:06 06:50 WBC 7.3 RBC 4.66 Hgb 12.8 Hct 37.2 MCV 79.8 L MCH 27.5 MCHC 34.4 RDW 14.2 Plt Count 224 MPV 11.3 H Sodium Potassium Chloride Carbon Dioxide Anion Gap BUN Creatinine Est GFR ( Amer) Est GFR (Non-Af Amer) POC Glucose (mg/dL) 132 H 296 H Random Glucose Calcium Total Bilirubin AST ALT Alkaline Phosphatase Total Protein Albumin Globulin Albumin/Globulin Ratio Urine Color Urine Appearance Urine pH Ur Specific [place] Urine Protein Urine Glucose (UA) Urine Ketones Urine Blood Urine Nitrate Urine Bilirubin Urine Urobilinogen Ur Leukocyte Esterase Urine RBC Urine WBC Ur Epithelial Cells Urine Bacteria RPR 08/10/17 08/10/17 06:50 08:39 WBC RBC Hgb Hct MCV MCH MCHC RDW Plt Count MPV Sodium 133 Potassium 4.0 Chloride 101 Carbon Dioxide 24 Anion Gap 13 BUN 11 Creatinine 0.6 L Est GFR ( Amer) > 60 Est GFR (Non-Af Amer) > 60 POC Glucose (mg/dL) 179 H Random Glucose 237 H Calcium 9.1 Total Bilirubin 0.8 AST 20 ALT 31 Alkaline Phosphatase 105 Total Protein 7.0 Albumin 3.6 Globulin 3.4 Albumin/Globulin Ratio 1.1 Urine Color Urine Appearance Urine pH Ur Specific [place] Urine Protein Urine Glucose (UA) Urine Ketones Urine Blood Urine Nitrate Urine Bilirubin Urine Urobilinogen Ur Leukocyte Esterase Urine RBC Urine WBC Ur Epithelial Cells Urine Bacteria RPR [facility] RESULTS CBC wnl Alk Phosphatase 122H [id number] UDS negative Ua= glucose >1000, Many RBC WBC 4-5 Bacteria FEW Acetaminophen<10 Salicylate <2.5 Estimated Date of D/C: 08/19/17 (will monitor closely)
--- NOTE | 2017-08-16 14:25 | PN ---
SUBJECTIVE: I saw her in the psychiatric floor. She was sleeping in bed. She ate breakfast already and came back to bed. She is alert, comfortable, in no acute distress to me. She is smiling, she is happy. She is participating. She tells me no more suicidal ideation, and her depression is lifting and she is overall doing better. I think she told me she is going home on Friday. MEDICATIONS: She is on Ativan, Benadryl, Cogentin, Glucophage, Haldol, insulin coverage, Januvia, Lipitor, Maalox, milk of magnesia, Sonata, Tylenol, Zestril, and Zoloft. PHYSICAL EXAMINATION: VITAL SIGNS: Temperature 98, 88 pulse, 115/83 blood pressure, 18 respiratory rate, 96% on O2 saturation on room air. HEENT: Head is atraumatic and normocephalic. Throat is moist. NECK: Supple. HEART: Regular rate. LUNGS: Clear to auscultation. ABDOMEN: Soft, obese, nontender. EXTREMITIES: No edema. LABORATORY DATA: Her last blood sugar was 139. She is doing quite well here. She is improving. I will continue with aggressive treatment and care for her. She has depression, suicidal ideation, anxiety, diabetes, hypertension, high cholesterol, UTI, nausea,vomiting, and she is improving. Zachary Johnson DO
[2017-08-17 00:46] LABS: URINE BILIRUBIN NEGATIVE (NEGATIVE); URINE BLOOD NEGATIVE (NEGATIVE); URINE GLUCOSE (UA) NEGATIVE (NEGATIVE); URINE KETONE NEGATIVE (NEGATIVE); URINE LEUKOCYTE ESTERASE NEGATIVE Leu/uL (NEGATIVE); URINE PROTEIN NEGATIVE mg/dL (<30 mg/dL)
[2017-08-17 00:52] LABS: URINE APPEARANCE CLEAR (CLEAR); URINE COLOR YELLOW (YELLOW)
[2017-08-17] MEDS: Insulin Reg-MEDIUM-Coverage SC SCH ×4 (08:02→21:55)
--- NOTE | 2017-08-17 08:54 | PCM.PYCHPN ---
Psychiatric Progress Note - Psychiatric Progress Note Patient seen today, length of contact: 25 min Patient Chief Complaint: "depression is improving, feel more hopeful" Problems Identified/Issues Discussed: I reviewed recent notes and met with patient at bedside. She remains unkempt, quiet and internally preoccupied. Soft spoken and oriented x3. She reports that depression is improving and that she feels more hopeful. Hallucinations are also improving, she still hears voices telling her to harm herself. Patient states "I know they aren't real" and denies any plan to hurt herself or anyone else. Affect remains constricted and her responses are brief and superficial. Staff notes indicate that patient is still disorganized but generally pleasant and cooperative. Doesn't participate in groups. Patient complained of burning urination yesterday. Resident, Dr. Paulie Bejarano ordered a urinalysis and culture. There were no behavioral issues over the weekend Diagnostic Results: Schizoaffective Disorder Medication Change: No ( ) Medical Record Reviewed: Yes Mental Status Examination - Cognitive Function Orientation: Person, Place, Situation Attention: WNL - Mood Mood: Depressed ("depression is improving, feel more hopeful") - Affect Affect: Constricted - Speech Speech: Appropriate - Formal Thought Process Formal Thought Process: Hallucinations (improving "I know they aren't real") - Suicidal Ideation Suicidal Ideation: No - Homicidal Ideation Homicidal Ideation: No Goal/Treatment Plan - Goal/Treatment Plan Need for Continued Stay: Remain at risks for inpatient hospitalization, Severe depression anxiety, Discharge may exacerbated symptoms, Severe functional impairment Progress Toward Problem(s) and Goals/Treatment Plan: * grp, milieu and supportive tx * Haldol 10 mg po bid for hallucinations * Haldol Decanoate 75 mg IM, most recent dose was on 08/12/17 * Cogentin 0.5 mg po bid for EPS prophylaxis * Zoloft 150 mg po daily for depression * Sonata 10 mg po HS for insomnia * Haldol 5 mg + Ativan 2 mg + Benadryl 50 q6 prn: agitation * Contacted Dr. Lolis Jimenes who was listed as patient's psychiatrist on [facility] paperwork. Dr. Jimenes indicates that she no longer treats this patient. Dr. Jimenes reports that patient is schizophrenic and does not have Borderline Personality Disorder. Patient is generally a kind person who easily decompensates when she spends time out of her sister's home. * Appreciate f/u by Dr. Johnson on 08/16/17 * Patient complained of burning urination yesterday 08/16/17. Resident, Dr. Paulie Bejarano ordered a urinalysis and culture. Urinalysis results noted below: Laboratory Results - last 24 hr 08/16/17 08/16/17 08/16/17 11: 16:20 21:26 POC Glucose (mg/dL) 169 H 137 H 110 Urine Color Urine Appearance Urine pH Ur Specific [place] Urine Protein Urine Glucose (UA) Urine Ketones Urine Blood Urine Nitrate Urine Bilirubin Urine Urobilinogen Ur Leukocyte Esterase 08/17/17 08/17/17 00:00 07:12 POC Glucose (mg/dL) 144 H Urine Color Yellow Urine Appearance Clear Urine pH 6.0 Ur Specific [place] 1.010 Urine Protein Negative Urine Glucose (UA) Negative Urine Ketones Negative Urine Blood Negative Urine Nitrate Negative Urine Bilirubin Negative Urine Urobilinogen 1.0 H Ur Leukocyte Esterase Negative * Vitals reviewed and noted below: Selected Entries 08/15/17 08/16/17 08/16/17 16:17 06:48 08:37 Temperature 98.0 F 98.0 F Pulse Rate 97 H 88 88 Respiratory 18 Rate Blood Pressure 115/79 115/83 115/83 O2 Sat by Pulse 96 Oximetry 08/16/17 16:00 Temperature Pulse Rate 86 Respiratory Rate Blood Pressure 112/79 O2 Sat by Pulse Oximetry [facility] Laboratory Results - last 24 hr 08/09/17 08/09/17 08/09/17 06:00 06:00 08:22 WBC 6.2 RBC 4.82 Hgb 13.0 Hct 38.2 MCV 79.3 L MCH 27.0 MCHC 34.0 RDW 14.1 Plt Count 211 MPV 10.4 Gran % 45.2 L Lymph % (Auto) 44.7 H Cottle % (Auto) 6.9 H Eos % (Auto) 2.7 Baso % (Auto) 0.5 Gran # 2.79 Lymph # 2.8 Cottle # 0.4 Eos # 0.2 Baso # 0.03 Sodium 136 Potassium 3.8 Chloride 103 Carbon Dioxide 26 Anion Gap 11 BUN 9 Creatinine 0.6 L Est GFR ( Amer) > 60 Est GFR (Non-Af Amer) > 60 POC Glucose (mg/dL) 185 H Random Glucose 189 H Calcium 9.0 Total Bilirubin 0.8 AST 19 ALT 32 Alkaline Phosphatase 105 Total Protein 6.9 Albumin 3.5 Globulin 3.4 Albumin/Globulin Ratio 1.0 L Laboratory Results - last 24 hr 08/09/17 08/09/17 08/09/17 06:00 11:32 12:37 WBC RBC Hgb Hct MCV MCH MCHC RDW Plt Count MPV Sodium Potassium Chloride Carbon Dioxide Anion Gap BUN Creatinine Est GFR ( Amer) Est GFR (Non-Af Amer) POC Glucose (mg/dL) 223 H Random Glucose Calcium Total Bilirubin AST ALT Alkaline Phosphatase Total Protein Albumin Globulin Albumin/Globulin Ratio Urine Color Yellow Urine Appearance Clear Urine pH 6.0 Ur Specific [place] 1.015 Urine Protein Negative Urine Glucose (UA) 500 H Urine Ketones Negative Urine Blood Large H Urine Nitrate Negative Urine Bilirubin Negative Urine Urobilinogen 1.0 H Ur Leukocyte Esterase Negative Urine RBC 0 - 2 Urine WBC 5 - 10 Ur Epithelial Cells 3 - 4 Urine Bacteria Small RPR Nonreactive 08/09/17 08/09/17 08/10/17 16:27 22:06 06:50 WBC 7.3 RBC 4.66 Hgb 12.8 Hct 37.2 MCV 79.8 L MCH 27.5 MCHC 34.4 RDW 14.2 Plt Count 224 MPV 11.3 H Sodium Potassium Chloride Carbon Dioxide Anion Gap BUN Creatinine Est GFR ( Amer) Est GFR (Non-Af Amer) POC Glucose (mg/dL) 132 H 296 H Random Glucose Calcium Total Bilirubin AST ALT Alkaline Phosphatase Total Protein Albumin Globulin Albumin/Globulin Ratio Urine Color Urine Appearance Urine pH Ur Specific [place] Urine Protein Urine Glucose (UA) Urine Ketones Urine Blood Urine Nitrate Urine Bilirubin Urine Urobilinogen Ur Leukocyte Esterase Urine RBC Urine WBC Ur Epithelial Cells Urine Bacteria RPR 08/10/17 08/10/17 06:50 08:39 WBC RBC Hgb Hct MCV MCH MCHC RDW Plt Count MPV Sodium 133 Potassium 4.0 Chloride 101 Carbon Dioxide 24 Anion Gap 13 BUN 11 Creatinine 0.6 L Est GFR ( Amer) > 60 Est GFR (Non-Af Amer) > 60 POC Glucose (mg/dL) 179 H Random Glucose 237 H Calcium 9.1 Total Bilirubin 0.8 AST 20 ALT 31 Alkaline Phosphatase 105 Total Protein 7.0 Albumin 3.6 Globulin 3.4 Albumin/Globulin Ratio 1.1 Urine Color Urine Appearance Urine pH Ur Specific [place] Urine Protein Urine Glucose (UA) Urine Ketones Urine Blood Urine Nitrate Urine Bilirubin Urine Urobilinogen Ur Leukocyte Esterase Urine RBC Urine WBC Ur Epithelial Cells Urine Bacteria RPR [facility] RESULTS CBC wnl Alk Phosphatase 122H [id number] UDS negative Ua= glucose >1000, Many RBC WBC 4-5 Bacteria FEW Acetaminophen<10 Salicylate <2.5 Estimated Date of D/C: 08/19/17 (will monitor closely)
--- NOTE | 2017-08-17 12:43 | PN ---
DATE: SUBJECTIVE: Taina is resting comfortably in bed. She got up this morning, ate her breakfast. She is smiling. She is happy right now. She is in good spirits. She is feeling better. MEDICATIONS: She is on Ativan, Benadryl, Cogentin, Glucophage, Haldol, insulin, Januvia, Lipitor, Maalox, milk of magnesia, Sonata, Tylenol, Zestril, and Zoloft. PHYSICAL EXAMINATION VITAL SIGNS: She has 97.7 temperature, 93 pulse, 130/71 blood pressure, 20 respiratory rate, 96% O2 saturation on room air. HEENT: Head is atraumatic, normocephalic. HEART: Regular, rate. LUNGS: Clear to auscultation. ABDOMEN: Soft and obese. EXTREMITIES: No edema. LABORATORY DATA: Last lab, she had 144 sugar. Being seen by Psychiatry for numerous issues that include the followin. Suicidal ideation. 2. Depression. 3. Anxiety. 4. Diabetes. 5. Hypertension. 6. High cholesterol. 7. Urinary tract infection. 8. Nausea and vomiting. PLAN: I believe she is fairly stable at this time. I will continue to monitor her and I also talked with her about diabetes, hypertension, and high cholesterol and diet. I will continue with psych care. Zachary Johnson DO
--- NOTE | 2017-08-17 19:39 | CP.PCM.PN ---
Subjective - Date & Time of Evaluation Date of Evaluation: 08/17/17 Time of Evaluation: 19:33 - Subjective Subjective: Code Star Note Code star was called at 19:15. On arrival patient was hemodynamically stable with vitals as follows: BP 118/79, HR 93 bpm. Patient says she felt dizzy and she fell because it was dark in her room. Patient says she caught herself and kneeled by the bed hitting her left giles on the bedside. Patient denies hitting her head and says she feels fine now other than some dizziness while standing and mild left leg pain. Singh says she had some blurry vision lasting a minute early today while in the shower. She otherwise denies headache, chest pain, palpitations, and joint pain. Objective - Vital Signs/Intake and Output Vital Signs (last 24 hours): Temp Pulse Resp BP Pulse Ox 97.7 F 93 H 20 130/71 96 08/17/17 07:08 08/17/17 08:18 08/17/17 07:08 08/17/17 08:18 08/16/17 06:48 - Medications Medications: Current Medications Acetaminophen (Tylenol 325mg Tab) 650 mg PO Q4 PRN PRN Reason: Pain, Mild (1-3) Last Admin: 08/15/17 22:48 Dose: 650 mg Al Hydrox/Mg Hydrox/Simethicone (Maalox Plus 30 Ml) 30 ml PO DAILY PRN PRN Reason: Upset Stomach Last Admin: 08/11/17 01:55 Dose: 30 ml Atorvastatin Calcium (Lipitor) 40 mg PO DIN [facility] Last Admin: 08/17/17 16:21 Dose: 40 mg Benztropine Mesylate (Cogentin) 0.5 mg PO BID [facility] Last Admin: 08/17/17 16:21 Dose: 0.5 mg Diphenhydramine HCl (Benadryl) 50 mg PO Q6 PRN PRN Reason: Agitation Diphenhydramine HCl (Benadryl) 50 mg IM Q6 PRN PRN Reason: Agitation Haloperidol (Haldol) 10 mg PO BID [facility] PRN Reason: Protocol Last Admin: 08/17/17 16:21 Dose: 10 mg Haloperidol (Haldol) 5 mg PO Q6H PRN PRN Reason: Agitation Haloperidol Lactate (Haldol) 5 mg IM Q6 PRN; Protocol PRN Reason: Agitation Insulin Human Regular (Humulin R Med) 0 units SC ACHS [facility] PRN Reason: Protocol Last Admin: 08/17/17 17:33 Dose: Not Given Lisinopril (Zestril) 5 mg PO DAILY [facility] Last Admin: 08/17/17 08:18 Dose: 5 mg Lorazepam (Ativan) 2 mg PO Q6 PRN; Protocol PRN Reason: Agitation Lorazepam (Ativan) 2 mg IM Q6H PRN; Protocol PRN Reason: Agitation Magnesium Hydroxide (Milk Of Magnesia) 30 ml PO DAILY PRN PRN Reason: Constipation Metformin HCl (Glucophage) 1,000 mg PO BID [facility] Last Admin: 08/17/17 16:21 Dose: 1,000 mg Sertraline HCl (Zoloft) 150 mg PO DAILY [facility] Last Admin: 08/17/17 08:15 Dose: 150 mg Sitagliptin Phosphate (Januvia) 100 mg PO DAILY [facility] Last Admin: 08/17/17 08:16 Dose: 100 mg Zaleplon (Sonata) 10 mg PO HS PRN PRN Reason: Insomnia Last Admin: 08/16/17 21:33 Dose: 10 mg - Labs Labs: 08/10/17 06:50 08/10/17 06:50 - Constitutional Appears: Non-toxic, No Acute Distress - Head Exam Head Exam: ATRAUMATIC, NORMAL INSPECTION, NORMOCEPHALIC - Eye Exam Eye Exam: EOMI, Normal appearance - Respiratory Exam Respiratory Exam: NORMAL BREATHING PATTERN. absent: Accessory Muscle Use, Respiratory Distress - Cardiovascular Exam Cardiovascular Exam: absent: Bradycardia, Tachycardia - Extremities Exam Extremities Exam: Tenderness (mild over the left giles) - Neurological Exam Neurological Exam: Alert, Awake, Normal Gait Neuro motor strength exam: Left Upper Extremity: 5, Right Upper Extremity: 5, Left Lower Extremity: 5, Right Lower Extremity: 5 Additional comments: [id number] testing normal - Psychiatric Exam Psychiatric exam: Normal Affect, Normal Mood - Skin Skin Exam: Dry, Intact, Normal Color, Warm Assessment and Plan - Assessment and Plan (Free Text) Plan: Medication list reviewed and found to have many medications with dizziness as side effect No imaging needed at this time Patient instructed to ask nurse for help when standing/walking
[2017-08-18] MEDS: Insulin Reg-MEDIUM-Coverage SC SCH ×4 (08:01→22:22)
--- NOTE | 2017-08-18 10:40 | PN ---
DATE: SUBJECTIVE: I saw Taina in the Psychiatric Unit. She is now on a wheelchair wheeling herself down the barry. Apparently last night, she was in a dark room, got up, felt dizzy, hurt herself, hurt her left leg and she is otherwise doing better mentally. PHYSICAL EXAMINATION: VITAL SIGNS: 98.2 temperature, 87 pulse, 120/82 blood pressure, and 20 respiratory rate. HEENT: Head is atraumatic and normocephalic. Throat is moist. NECK: Supple. HEART: Regular rate. LUNGS: Clear to auscultation. ABDOMEN: Soft. EXTREMITIES: No edema. There is tenderness to the left tibia. I will order an x-ray of the left leg. MEDICATIONS: She is currently on Ativan, Benadryl, Cogentin, Glucophage, Haldol, Januvia, Lipitor, Maalox, milk of magnesia, Sonata, Tylenol, Zestril and Zoloft. LABORATORY DATA: Last blood sugar was 134. ASSESSMENT AND PLAN: She is doing better mentally from the psychological point of view. Medically, she is doing well also. She has depression, suicidal ideation, anxiety, hypertension, high cholesterol, urinary tract infection, and now a fall with left leg pain. I will order an x-ray. Continue aggressive treatment and care. Zachary Johnson DO
--- NOTE | 2017-08-18 13:01 | PCM.BM ---
<Indira oRmero - Last Filed: 08/18/17 12:59> Treatment Plan Problems - Problems identified on initial assessmt AUDITORY HALLUCINATION Date Initiated: 08/11/17 Time Initiated: 17:00 Assessment reference: NA Status: Active Priority: 1 Comment: PT STILL ADMITS TO HEARING VOICES AT TIMESW SUICIDAL IDEATION Date Initiated: 08/11/17 Time Initiated: 17:00 Date resolved: 08/18/17 Assessment reference: NA Status: Active Priority: 2 Comment: DENIES S/H IDEATION Treatment assets and liabiliti Patient Assests: cooperative, ADL independent, physically healthy, cognitively intact Patient Liabilities: poor support system - Milieu Protocol Maintain good personal hygiene: every shift Encourage regular showers, every shift Remind patient to perform daily oral care, every shift Assist patient to perform ADL's Maintain personal safety: daily Educate patient to report safety concerns to staff, daily Monitor environment for contraband/sharps Medication safety: Monitor for expected outcome, potential side effects: daily, Assess barriers to learning: daily, Assess readiness for medication education: daily Milieu Narrative: * grp, milieu and supportive tx * Haldol 10 mg po bid for hallucinations * Haldol Decanoate 75 mg IM, most recent dose was on 08/12/17 * Cogentin 0.5 mg po bid for EPS prophylaxis * Zoloft 150 mg po daily for depression * Sonata 10 mg po HS for insomnia * Haldol 5 mg + Ativan 2 mg + Benadryl 50 q6 prn: agitation * Contacted Dr. Lolis Jimenes who was listed as patient's psychiatrist on [facility] paperwork. Dr. Jimenes indicates that she no longer treats this patient. Dr. Jimenes reports that patient is schizophrenic and does not have Borderline Personality Disorder. Patient is generally a kind person who easily decompensates when she spends time out of her sister's home. * Appreciate f/u by Dr. Johnson on 08/16/17 * Patient complained of burning urination yesterday 08/16/17. Resident, Dr. Paulie Bejarano ordered a urinalysis and culture. Urinalysis results noted below: Laboratory Results - last 24 hr 08/16/17 08/16/17 08/16/17 11:17 16:20 21:26 POC Glucose (mg/dL) 169 H 137 H 110 Urine Color Urine Appearance Urine pH Ur Specific [place] Urine Protein Urine Glucose (UA) Urine Ketones Urine Blood Urine Nitrate Urine Bilirubin Urine Urobilinogen Ur Leukocyte Esterase 08/17/17 08/17/17 00:00 07:12 POC Glucose (mg/dL) 144 H Urine Color Yellow Urine Appearance Clear Urine pH 6.0 Ur Specific [place] 1.010 Urine Protein Negative Urine Glucose (UA) Negative Urine Ketones Negative Urine Blood Negative Urine Nitrate Negative Urine Bilirubin Negative Urine Urobilinogen 1.0 H Ur Leukocyte Esterase Negative * Vitals reviewed and noted below: Selected Entries 08/15/17 08/16/17 08/16/17 16:17 06:48 08:37 Temperature 98.0 F 98.0 F Pulse Rate 97 H 88 88 Respiratory 18 Rate Blood Pressure 115/79 115/83 115/83 O2 Sat by Pulse 96 Oximetry 08/16/17 16:00 Temperature Pulse Rate 86 Respiratory Rate Blood Pressure 112/79 O2 Sat by Pulse Oximetry [facility] Laboratory Results - last 24 hr 08/09/17 08/09/17 08/09/17 06:00 06:00 08:22 WBC 6.2 RBC 4.82 Hgb 13.0 Hct 38.2 MCV 79.3 L MCH 27.0 MCHC 34.0 RDW 14.1 Plt Count 211 MPV 10.4 Gran % 45.2 L Lymph % (Auto) 44.7 H [place] % (Auto) 6.9 H Eos % (Auto) 2.7 Baso % (Auto) 0.5 Gran # 2.79 Lymph # 2.8 [place] # 0.4 Eos # 0.2 Baso # 0.03 Sodium 136 Potassium 3.8 Chloride 103 Carbon Dioxide 26 Anion Gap 11 BUN 9 Creatinine 0.6 L Est GFR ( Amer) > 60 Est GFR (Non-Af Amer) > 60 POC Glucose (mg/dL) 185 H Random Glucose 189 H Calcium 9.0 Total Bilirubin 0.8 AST 19 ALT 32 Alkaline Phosphatase 105 Total Protein 6.9 Albumin 3.5 Globulin 3.4 Albumin/Globulin Ratio 1.0 L Laboratory Results - last 24 hr 08/09/17 08/09/17 08/09/17 06:00 11:32 12:37 WBC RBC Hgb Hct MCV MCH MCHC RDW Plt Count MPV Sodium Potassium Chloride Carbon Dioxide Anion Gap BUN Creatinine Est GFR ( Amer) Est GFR (Non-Af Amer) POC Glucose (mg/dL) 223 H Random Glucose Calcium Total Bilirubin AST ALT Alkaline Phosphatase Total Protein Albumin Globulin Albumin/Globulin Ratio Urine Color Yellow Urine Appearance Clear Urine pH 6.0 Ur Specific [place] 1.015 Urine Protein Negative Urine Glucose (UA) 500 H Urine Ketones Negative Urine Blood Large H Urine Nitrate Negative Urine Bilirubin Negative Urine Urobilinogen 1.0 H Ur Leukocyte Esterase Negative Urine RBC 0 - 2 Urine WBC 5 - 10 Ur Epithelial Cells 3 - 4 Urine Bacteria Small RPR Nonreactive 08/09/17 08/09/17 08/10/17 16:27 22:06 06:50 WBC 7.3 RBC 4.66 Hgb 12.8 Hct 37.2 MCV 79.8 L MCH 27.5 MCHC 34.4 RDW 14.2 Plt Count 224 MPV 11.3 H Sodium Potassium Chloride Carbon Dioxide Anion Gap BUN Creatinine Est GFR ( Amer) Est GFR (Non-Af Amer) POC Glucose (mg/dL) 132 H 296 H Random Glucose Calcium Total Bilirubin AST ALT Alkaline Phosphatase Total Protein Albumin Globulin Albumin/Globulin Ratio Urine Color Urine Appearance Urine pH Ur Specific [place] Urine Protein Urine Glucose (UA) Urine Ketones Urine Blood Urine Nitrate Urine Bilirubin Urine Urobilinogen Ur Leukocyte Esterase Urine RBC Urine WBC Ur Epithelial Cells Urine Bacteria RPR 08/10/17 08/10/17 06:50 08:39 WBC RBC Hgb Hct MCV MCH MCHC RDW Plt Count MPV Sodium 133 Potassium 4.0 Chloride 101 Carbon Dioxide 24 Anion Gap 13 BUN 11 Creatinine 0.6 L Est GFR ( Amer) > 60 Est GFR (Non-Af Amer) > 60 POC Glucose (mg/dL) 179 H Random Glucose 237 H Calcium 9.1 Total Bilirubin 0.8 AST 20 ALT 31 Alkaline Phosphatase 105 Total Protein 7.0 Albumin 3.6 Globulin 3.4 Albumin/Globulin Ratio 1.1 Urine Color Urine Appearance Urine pH Ur Specific [place] Urine Protein Urine Glucose (UA) Urine Ketones Urine Blood Urine Nitrate Urine Bilirubin Urine Urobilinogen Ur Leukocyte Esterase Urine RBC Urine WBC Ur Epithelial Cells Urine Bacteria RPR [facility] RESULTS CBC wnl Alk Phosphatase 122H [id number] UDS negative Ua= glucose >1000, Many RBC WBC 4-5 Bacteria FEW Acetaminophen<10 Salicylate <2.5 Family Contact Family involvement: No known Family/SO Discharge/Continuing Care - Education Needs Education Needs: Patient Medication, Patient Diagnosis/Disease Process, Patient Coping Skills, Patient Placement options, Patient Community resources, Patient Activities of Daily Living, Patient Nutrition, Patient Health Practices/Safety, Patient Personal Hygiene/Grooming, Patient Aftercare Safety Plan - Discharge Discharge Criteria: Tolerates medication w/o severe side effects, Free of Suicidal thoughts, Free of agitation, Normal sleep pattern, Ability to care for self, Reduction of target symptoms Discharge to:: Home - Treatment Team Participation Patient/Family/SO Statement: * grp, milieu and supportive tx * Haldol 10 mg po bid for hallucinations * Haldol Decanoate 75 mg IM, most recent dose was on 08/12/17 * Cogentin 0.5 mg po bid for EPS prophylaxis * Zoloft 150 mg po daily for depression * Sonata 10 mg po HS for insomnia * Haldol 5 mg + Ativan 2 mg + Benadryl 50 q6 prn: agitation * Contacted Dr. Lolis Jimenes who was listed as patient's psychiatrist on [facility] paperwork. Dr. Jimenes indicates that she no longer treats this patient. Dr. Jimenes reports that patient is schizophrenic and does not have Borderline Personality Disorder. Patient is generally a kind person who easily decompensates when she spends time out of her sister's home. * Appreciate f/u by Dr. Johnson on 08/16/17 * Patient complained of burning urination yesterday 08/16/17. Resident, Dr. Paulie Bejarano ordered a urinalysis and culture. Urinalysis results noted below: Laboratory Results - last 24 hr 08/16/17 08/16/17 08/16/17 11: 16:20 21:26 POC Glucose (mg/dL) 169 H 137 H 110 Urine Color Urine Appearance Urine pH Ur Specific [place] Urine Protein Urine Glucose (UA) Urine Ketones Urine Blood Urine Nitrate Urine Bilirubin Urine Urobilinogen Ur Leukocyte Esterase 08/17/17 08/17/17 00:00 07:12 POC Glucose (mg/dL) 144 H Urine Color Yellow Urine Appearance Clear Urine pH 6.0 Ur Specific [place] 1.010 Urine Protein Negative Urine Glucose (UA) Negative Urine Ketones Negative Urine Blood Negative Urine Nitrate Negative Urine Bilirubin Negative Urine Urobilinogen 1.0 H Ur Leukocyte Esterase Negative * Vitals reviewed and noted below: Selected Entries 08/15/17 08/16/17 08/16/17 16:17 06:48 08:37 Temperature 98.0 F 98.0 F Pulse Rate 97 H 88 88 Respiratory 18 Rate Blood Pressure 115/79 115/83 115/83 O2 Sat by Pulse 96 Oximetry 08/16/17 16:00 Temperature Pulse Rate 86 Respiratory Rate Blood Pressure 112/79 O2 Sat by Pulse Oximetry [facility] Laboratory Results - last 24 hr 08/09/17 08/09/17 08/09/17 06:00 06:00 08:22 WBC 6.2 RBC 4.82 Hgb 13.0 Hct 38.2 MCV 79.3 L MCH 27.0 MCHC 34.0 RDW 14.1 Plt Count 211 MPV 10.4 Gran % 45.2 L Lymph % (Auto) 44.7 H [place] % (Auto) 6.9 H Eos % (Auto) 2.7 Baso % (Auto) 0.5 Gran # 2.79 Lymph # 2.8 [place] # 0.4 Eos # 0.2 Baso # 0.03 Sodium 136 Potassium 3.8 Chloride 103 Carbon Dioxide 26 Anion Gap 11 BUN 9 Creatinine 0.6 L Est GFR ( Amer) > 60 Est GFR (Non-Af Amer) > 60 POC Glucose (mg/dL) 185 H Random Glucose 189 H Calcium 9.0 Total Bilirubin 0.8 AST 19 ALT 32 Alkaline Phosphatase 105 Total Protein 6.9 Albumin 3.5 Globulin 3.4 Albumin/Globulin Ratio 1.0 L Laboratory Results - last 24 hr 08/09/17 08/09/17 08/09/17 06:00 11:32 12:37 WBC RBC Hgb Hct MCV MCH MCHC RDW Plt Count MPV Sodium Potassium Chloride Carbon Dioxide Anion Gap BUN Creatinine Est GFR ( Amer) Est GFR (Non-Af Amer) POC Glucose (mg/dL) 223 H Random Glucose Calcium Total Bilirubin AST ALT Alkaline Phosphatase Total Protein Albumin Globulin Albumin/Globulin Ratio Urine Color Yellow Urine Appearance Clear Urine pH 6.0 Ur Specific [place] 1.015 Urine Protein Negative Urine Glucose (UA) 500 H Urine Ketones Negative Urine Blood Large H Urine Nitrate Negative Urine Bilirubin Negative Urine Urobilinogen 1.0 H Ur Leukocyte Esterase Negative Urine RBC 0 - 2 Urine WBC 5 - 10 Ur Epithelial Cells 3 - 4 Urine Bacteria Small RPR Nonreactive 08/09/17 08/09/17 08/10/17 16:27 22:06 06:50 WBC 7.3 RBC 4.66 Hgb 12.8 Hct 37.2 MCV 79.8 L MCH 27.5 MCHC 34.4 RDW 14.2 Plt Count 224 MPV 11.3 H Sodium Potassium Chloride Carbon Dioxide Anion Gap BUN Creatinine Est GFR ( Amer) Est GFR (Non-Af Amer) POC Glucose (mg/dL) 132 H 296 H Random Glucose Calcium Total Bilirubin AST ALT Alkaline Phosphatase Total Protein Albumin Globulin Albumin/Globulin Ratio Urine Color Urine Appearance Urine pH Ur Specific [place] Urine Protein Urine Glucose (UA) Urine Ketones Urine Blood Urine Nitrate Urine Bilirubin Urine Urobilinogen Ur Leukocyte Esterase Urine RBC Urine WBC Ur Epithelial Cells Urine Bacteria RPR 08/10/17 08/10/17 06:50 08:39 WBC RBC Hgb Hct MCV MCH MCHC RDW Plt Count MPV Sodium 133 Potassium 4.0 Chloride 101 Carbon Dioxide 24 Anion Gap 13 BUN 11 Creatinine 0.6 L Est GFR ( Amer) > 60 Est GFR (Non-Af Amer) > 60 POC Glucose (mg/dL) 179 H Random Glucose 237 H Calcium 9.1 Total Bilirubin 0.8 AST 20 ALT 31 Alkaline Phosphatase 105 Total Protein 7.0 Albumin 3.6 Globulin 3.4 Albumin/Globulin Ratio 1.1 Urine Color Urine Appearance Urine pH Ur Specific [place] Urine Protein Urine Glucose (UA) Urine Ketones Urine Blood Urine Nitrate Urine Bilirubin Urine Urobilinogen Ur Leukocyte Esterase Urine RBC Urine WBC Ur Epithelial Cells Urine Bacteria RPR [facility] RESULTS CBC wnl Alk Phosphatase 122H [id number] UDS negative Ua= glucose >1000, Many RBC WBC 4-5 Bacteria FEW Acetaminophen<10 Salicylate <2.5 Treatment Plan Review - Problem AUDITORY HALLUCINATION Time Initiated: 17:00 SUICIDAL IDEATION Time Initiated: 17:00 <Avelina Valladares - Last Filed: 08/22/17 17:34> - Diagnosis (1) Schizoaffective disorder Status: Acute Interventions: 08/22/17 17:33 pt is improving slowly has residual symptoms pt is compliant with meds pt also got IM of Haldol Dec denied thoughts of harming self or others psychosis is improving
--- NOTE | 2017-08-18 13:41 | PCM.PYCHPN ---
<Pema Sim - Last Filed: 08/18/17 13:48> Psychiatric Progress Note - Psychiatric Progress Note Patient seen today, length of contact: 25 min Patient Chief Complaint: "I am doing OK" Problems Identified/Issues Discussed: Patient seen in treatment team. She is concrete and simplistic in conversation. Her appearance was neat. She indicates her symptoms have decreased, though she still feels she might be depressed. She evidently fell last night due to dizziness and hit her leg. I have decreased her po Haldol in response to this. She was encouraged to involve herself in unit activities as she has been isolating in her room. Medication Change: Yes (Haldol 10mg 1 po BID discontinued, Haldol 5mg 1 po BID to start 08/19/2017) Medical Record Reviewed: Yes Mental Status Examination - Cognitive Function Orientation: Person, Place, Situation Attention: WNL - Mood Mood: Depressed ("depression is improving, feel more hopeful") - Affect Affect: Constricted - Speech Speech: Appropriate - Formal Thought Process Formal Thought Process: Hallucinations (improving "I know they aren't real") - Suicidal Ideation Suicidal Ideation: No - Homicidal Ideation Homicidal Ideation: No Goal/Treatment Plan - Goal/Treatment Plan Need for Continued Stay: Remain at risks for inpatient hospitalization, Severe depression anxiety, Discharge may exacerbated symptoms, Severe functional impairment Estimated Date of D/C: 08/19/17 (will monitor closely) <Avelina Valladares - Last Filed: 08/22/17 17:36> Psychiatric Progress Note - Psychiatric Progress Note DSM 5 Symptoms Update: addendum to ROOFER note: Patient is a single 37 y/o female with a psychiatric history of schizoaffective disorder and borderline personality disorder vs BIF, numerous prior admissions- most recently at [facility], history of suicide attempts most recently a year ago, in day treatment program at [facility], reported compliance with prescribed medications: Haldol Decanoate and Haldol po, Zoloft, trazodone and cogentin who was transferred from [facility] after being sent there by her day treatment program for depression, SI, and command auditory hallucinationsto kill herself. Patient reported to [facility] staff that she's been depressed for the last week and having suicidal thoughts to overdose on Tylenol. 08/12/17 IM of haldol dec 100mg, pt tolerated it well. pt had dizziness and ROOFER decreased dose of haldol. pt still disorganized, smiling inappropriately, but overall very pleasant, pt reported that hallucinations are under control. SW obtained collaterals from the pt's IOP program, see her notes for more detailed information, pt has long h/o mental illness, developmental disability, 8kids under DYFS. As per nursing report, patient was calm, corporative, but needs strong encouragement to take a shower. Diagnostic Results: Schizoaffective Disorder Treatment plan: grp, milieu and supportive tx Haldol 10 mg po bid for hallucinations Haldol Decanoate 100 mg IM last does was 08/12/17 Cogentin 0.5 mg po bid for EPS prophylaxis Zoloft 150 mg po daily for depression sonata will be increased to 10mg po hs for insomnia Haldol 5 mg with Ativan 2 mg q6 prn: agitation Dr. Meléndez contacted Dr. Lolis Jimenes who was listed as patient's psychiatrist on [facility] paperwork. Dr. Jimenes indicates that she no longer treats this patient. Dr. Jimenes reports that patient is schizophrenic and does not have Borderline Personality Disorder. Patient is generally a kind person who easily decompensates when she spends time out of her sister's home. DION consultation for discharge plan and social issues Med management Family involvement Follow up on labs Will monitor closely SW evaluation for d/c planning Pt was educated about risk/benefits and alternatives of medications, coping strategies (safety plan, suicide prevention), relapse prevention, importance of follow up with psychiatrist and therapist, stay away from drugs/alcohol/smoking
--- NOTE | 2017-08-18 14:04 | RAD ---
PROCEDURE: Radiographs of the left tibia and fibula. HISTORY: pain COMPARISON: None available. TECHNIQUE: Frontal and lateral views obtained. FINDINGS: BONES: No acute fracture or destructive lesion. Bone alignment and mineralization are normal. JOINT SPACES: Unremarkable. OTHER FINDINGS: None. IMPRESSION: Unremarkable radiographs of the left tibia and fibula.
[2017-08-19] MEDS: Insulin Reg-MEDIUM-Coverage SC SCH ×4 (08:30→22:58)
--- NOTE | 2017-08-19 09:47 | PN ---
DATE: SUBJECTIVE: I saw her up in Psychiatric floor. She is not in a wheelchair anymore. She is actually walking and the left leg is improved from where she hurt it with the fall. She is now walking. She is eating well. She tells me she might be being discharged today. She is smiling and no complaints. PHYSICAL EXAMINATION: VITAL SIGNS: 97.9 temp, 87 pulse, 122/81 blood pressure, 20 respiratory rate. HEENT: Head is atraumatic, normocephalic. HEART: Regular rate. LUNGS: Clear to auscultation. ABDOMEN: Soft. EXTREMITIES: No edema and no more pain of the leg. LABORATORY DATA: Last labs on 08/10/2017. Last blood sugar was 137, very good. MEDICATIONS: She is on Ativan, Benadryl, Cogentin, Glucophage, Haldol, insulin, Januvia, Lipitor, Maalox, milk of magnesia, Sonata, Tylenol, Zestril and Zoloft. ASSESSMENT AND PLAN: Overall, I am quite happy with her and if okay with Psychiatry, she will be able to be discharged. She had an x-ray of the tibia and fibula, it was actually where she bruised it and she could not walk the other day and it was unremarkable. We will continue with aggressive treatment and care on Ms. Taina Billy. She is here for depression, suicidal ideation, anxiety, depression, hypertension, high cholesterol, urinary tract infection, nausea, vomiting and a left giles pain from a fall. Zachary Johnson DO
--- NOTE | 2017-08-19 15:31 | PCM.PYCHPN ---
Psychiatric Progress Note - Psychiatric Progress Note Patient seen today, length of contact: 30min Patient Chief Complaint: "I am okay" Medical Problems: diabetes, hypertension, dyslipidemia Diagnostic Results: 08/10/17 06:50 08/10/17 06:50 Lab Results 08/11/17 07:15: POC Glucose (mg/dL) 142 H 08/10/17 21:47: POC Glucose (mg/dL) 219 H 08/10/17 15:51: POC Glucose (mg/dL) 137 H 08/10/17 13:10: Urine Color Yellow, Urine Appearance Clear, Urine pH 6.0, Ur Specific [place] 1.010, Urine Protein Negative, Urine Glucose (UA) >=1000, Urine Ketones Negative, Urine Blood Large H, Urine Nitrate Negative, Urine Bilirubin Negative, Urine Urobilinogen 0.2, Ur Leukocyte Esterase Negative, Urine RBC 0 - 2, Urine WBC 0 - 2, Ur Epithelial Cells 0 - 2, Amorphous Sediment Few, Urine Bacteria Small 08/10/17 11:42: POC Glucose (mg/dL) 281 H 08/10/17 08:39: POC Glucose (mg/dL) 179 H 08/10/17 06:50: Sodium 133, Potassium 4.0, Chloride 101, Carbon Dioxide 24, Anion Gap 13, BUN 11, Creatinine 0.6 L, Est GFR ( Amer) > 60, Est GFR ( Non-Af Amer) > 60, Random Glucose 237 H, Calcium 9.1, Total Bilirubin 0.8, AST 20, ALT 31, Alkaline Phosphatase 105, Total Protein 7.0, Albumin 3.6, Globulin 3.4, Albumin/Globulin Ratio 1.1 08/10/17 06:50: WBC 7.3, RBC 4.66, Hgb 12.8, Hct 37.2, MCV 79.8 L, MCH 27.5, MCHC 34.4, RDW 14.2, Plt Count 224, MPV 11.3 H 08/09/17 22:06: POC Glucose (mg/dL) 296 H 08/09/17 16:27: POC Glucose (mg/dL) 132 H 08/09/17 12:37: Urine Color Yellow, Urine Appearance Clear, Urine pH 6.0, Ur Specific [place] 1.015, Urine Protein Negative, Urine Glucose (UA) 500 H, Urine Ketones Negative, Urine Blood Large H, Urine Nitrate Negative, Urine Bilirubin Negative, Urine Urobilinogen 1.0 H, Ur Leukocyte Esterase Negative, Urine RBC 0 - 2, Urine WBC 5 - 10, Ur Epithelial Cells 3 - 4, Urine Bacteria Small 08/09/17 11:32: POC Glucose (mg/dL) 223 H 08/09/17 08:22: POC Glucose (mg/dL) 185 H 08/09/17 06:00: RPR Nonreactive 08/09/17 06:00: Sodium 136, Potassium 3.8, Chloride 103, Carbon Dioxide 26, Anion Gap 11, BUN 9, Creatinine 0.6 L, Est GFR ( Amer) > 60, Est GFR (Non -Af Amer) > 60, Random Glucose 189 H, Calcium 9.0, Total Bilirubin 0.8, AST 19, ALT 32, Alkaline Phosphatase 105, Total Protein 6.9, Albumin 3.5, Globulin 3.4, Albumin/Globulin Ratio 1.0 L 08/09/17 06:00: WBC 6.2, RBC 4.82, Hgb 13.0, Hct 38.2, MCV 79.3 L, MCH 27.0, MCHC 34.0, RDW 14.1, Plt Count 211, MPV 10.4, Gran % 45.2 L, Lymph % (Auto) 44.7 H, [place] % (Auto) 6.9 H, Eos % (Auto) 2.7, Baso % (Auto) 0.5, Gran # 2.79, Lymph # 2.8, [place] # 0.4, Eos # 0.2, Baso # 0.03 Vital Signs Temp Pulse Resp BP Pulse Ox 08/11/17 09:50 91 H 122/81 08/11/17 07:18 97.8 F 91 H 17 122/81 08/10/17 09:03 78 114/67 08/10/17 07:07 97.7 F 78 16 114/67 08/09/17 09:11 84 107/67 08/09/17 06:34 97.8 F 84 20 107/67 08/09/17 04:00 76 103/66 08/08/17 22:00 18 08/08/17 20:09 82 16 120/80 99 08/08/17 18:30 98.9 F 80 20 129/86 99 repeated UA showed no bacteria, clean, no need for antibiotics, d/w DSM 5 Symptoms Update: Patient is a single 37 y/o female with a psychiatric history of schizoaffective disorder and borderline personality disorder vs BIF, numerous prior admissions- most recently at [facility], history of suicide attempts most recently a year ago, in day treatment program at [facility], reported compliance with prescribed medications: Haldol Decanoate and Haldol po, Zoloft, trazodone and cogentin who [place] [facility] being sent there by her day treatment program for depression, SI, and command auditory hallucinationsto kill herself. Patient reported to [facility] staff that she's been depressed for the last week and having suicidal thoughts to overdose on Tylenol. patient was seen in her room, 08/12/17 IM of haldol dec 100mg, pt tolerated it well. haldol was decreased yesterday because pt had dizziness pt still is not attending groups, self isolative. As per nursing report, patient was calm, corporative, but needs strong encouragement to take a shower. Mental status examination: Patient appears at her chronological age, better organized, intermittent eye contact, speech was underproductive, poverty of speech, mood described "I am okay", affect was labile, mood incongruent, thought process seems to be disorganized, there is poverty of thoughts, thought content: Patient denied hallucinations today, denied feeling paranoid, patient appears to be internally preoccupied and paranoid, patient denied thoughts of harming herself or others, denied intent or plan, insight and judgment are limited, impulses are unpredictable. Diagnostic Results: Schizoaffective Disorder Treatment plan: grp, milieu and supportive tx Haldol 5 mg po bid for hallucinations Haldol Decanoate 100 mg IM last does was 08/12/17 Cogentin 0.5 mg po bid for EPS prophylaxis Zoloft 150 mg po daily for depression sonata will be increased to 10mg po hs for insomnia Haldol 5 mg with Ativan 2 mg q6 prn: agitation Dr. Meléndez contacted Dr. Lolis Jimenes who was listed as patient's psychiatrist on [facility] paperwork. Dr. Jimenes indicates that she no longer treats this patient. Dr. Jimenes reports that patient is schizophrenic and does not have Borderline Personality Disorder. Patient is generally a kind person who easily decompensates when she spends time out of her sister's home. consultation for discharge plan and social issues Med management Family involvement Follow up on labs Will monitor closely evaluation for d/c planning Pt was educated about risk/benefits and alternatives of medications, coping strategies (safety plan, suicide prevention), relapse prevention, importance of follow up with psychiatrist and therapist, stay away from drugs/alcohol/smoking Medication Change: Yes Medical Record Reviewed: Yes Consults ordered or reviewed: medical consultation appreciated Mental Status Examination - Cognitive Function Orientation: Person, Place, Situation Attention: WNL - Mood Mood: Depressed ("depression is improving, feel more hopeful") - Affect Affect: Constricted - Speech Speech: Appropriate - Formal Thought Process Formal Thought Process: Hallucinations (improving "I know they aren't real") - Suicidal Ideation Suicidal Ideation: No - Homicidal Ideation Homicidal Ideation: No Goal/Treatment Plan - Goal/Treatment Plan Need for Continued Stay: Remain at risks for inpatient hospitalization, Severe depression anxiety, Discharge may exacerbated symptoms, Severe functional impairment Progress Toward Problem(s) and Goals/Treatment Plan: 08/09/17 08/09/17 08/09/17 04:00 06:34 09:11 Temperature 97.8 F Pulse Rate 83 84 84 Respiratory 20 Rate Blood Pressure 106/70 107/67 107/67 [facility] Laboratory Results - last 24 hr 08/09/17 08/09/17 08/09/17 06:00 06:00 08:22 WBC 6.2 RBC 4.82 Hgb 13.0 Hct 38.2 MCV 79.3 L MCH 27.0 MCHC 34.0 RDW 14.1 Plt Count 211 MPV 10.4 Gran % 45.2 L Lymph % (Auto) 44.7 H [place] % (Auto) 6.9 H Eos % (Auto) 2.7 Baso % (Auto) 0.5 Gran # 2.79 Lymph # 2.8 [place] # 0.4 Eos # 0.2 Baso # 0.03 Sodium 136 Potassium 3.8 Chloride 103 Carbon Dioxide 26 Anion Gap 11 BUN 9 Creatinine 0.6 L Est GFR ( Amer) > 60 Est GFR (Non-Af Amer) > 60 POC Glucose (mg/dL) 185 H Random Glucose 189 H Calcium 9.0 Total Bilirubin 0.8 AST 19 ALT 32 Alkaline Phosphatase 105 Total Protein 6.9 Albumin 3.5 Globulin 3.4 Albumin/Globulin Ratio 1.0 L Laboratory Results - last 24 hr 08/09/17 08/09/17 08/09/17 06:00 11:32 12:37 WBC RBC Hgb Hct MCV MCH MCHC RDW Plt Count MPV Sodium Potassium Chloride Carbon Dioxide Anion Gap BUN Creatinine Est GFR ( Amer) Est GFR (Non-Af Amer) POC Glucose (mg/dL) 223 H Random Glucose Calcium Total Bilirubin AST ALT Alkaline Phosphatase Total Protein Albumin Globulin Albumin/Globulin Ratio Urine Color Yellow Urine Appearance Clear Urine pH 6.0 Ur Specific [place] 1.015 Urine Protein Negative Urine Glucose (UA) 500 H Urine Ketones Negative Urine Blood Large H Urine Nitrate Negative Urine Bilirubin Negative Urine Urobilinogen 1.0 H Ur Leukocyte Esterase Negative Urine RBC 0 - 2 Urine WBC 5 - 10 Ur Epithelial Cells 3 - 4 Urine Bacteria Small RPR Nonreactive 08/09/17 08/09/17 08/10/17 16:27 22:06 06:50 WBC 7.3 RBC 4.66 Hgb 12.8 Hct 37.2 MCV 79.8 L MCH 27.5 MCHC 34.4 RDW 14.2 Plt Count 224 MPV 11.3 H Sodium Potassium Chloride Carbon Dioxide Anion Gap BUN Creatinine Est GFR ( Amer) Est GFR (Non-Af Amer) POC Glucose (mg/dL) 132 H 296 H Random Glucose Calcium Total Bilirubin AST ALT Alkaline Phosphatase Total Protein Albumin Globulin Albumin/Globulin Ratio Urine Color Urine Appearance Urine pH Ur Specific [place] Urine Protein Urine Glucose (UA) Urine Ketones Urine Blood Urine Nitrate Urine Bilirubin Urine Urobilinogen Ur Leukocyte Esterase Urine RBC Urine WBC Ur Epithelial Cells Urine Bacteria RPR 08/10/17 08/10/17 06:50 08:39 WBC RBC Hgb Hct MCV MCH MCHC RDW Plt Count MPV Sodium 133 Potassium 4.0 Chloride 101 Carbon Dioxide 24 Anion Gap 13 BUN 11 Creatinine 0.6 L Est GFR ( Amer) > 60 Est GFR (Non-Af Amer) > 60 POC Glucose (mg/dL) 179 H Random Glucose 237 H Calcium 9.1 Total Bilirubin 0.8 AST 20 ALT 31 Alkaline Phosphatase 105 Total Protein 7.0 Albumin 3.6 Globulin 3.4 Albumin/Globulin Ratio 1.1 Urine Color Urine Appearance Urine pH Ur Specific [place] Urine Protein Urine Glucose (UA) Urine Ketones Urine Blood Urine Nitrate Urine Bilirubin Urine Urobilinogen Ur Leukocyte Esterase Urine RBC Urine WBC Ur Epithelial Cells Urine Bacteria RPR Estimated Date of D/C: 08/20/17 (will monitor closely)
[2017-08-20] MEDS: Insulin Reg-MEDIUM-Coverage SC SCH ×4 (08:25→21:34)
--- NOTE | 2017-08-20 12:58 | PN ---
DATE: SUBJECTIVE: I saw Taina in the psychiatric floor. She is resting comfortably in bed. She has slept well. She is in good spirits. She is eating. She is participating and much improved. MEDICATIONS: She is on Ativan, Benadryl, Glucophage, Haldol, insulin, Januvia, Lipitor, Maalox, milk of magnesia, Sonata, Tylenol, Zestril, and Zoloft. PHYSICAL EXAMINATION: VITAL SIGNS: She has 97.7 temperature, 93 pulse, 111/70 blood pressure, and 20 respiratory rate. HEENT: Head is atraumatic and normocephalic. HEART: Regular rate. LUNGS: Clear to auscultation. ABDOMEN: Soft, obese, and nontender. EXTREMITIES: No edema. LABORATORY DATA: Last labs on the 08/10/2017, she did very well. Last blood sugar was 151. Blood pressure is good. ASSESSMENT AND PLAN: She tells me she is leaving today, will see what Psychiatry is planning to do. Medically, she is stable. We will continue with aggressive treatment and care on Taina Billy for suicidal ideation, depression, anxiety, diabetes, hypertension, high cholesterol, urinary tract infection, nausea, vomiting, and left giles pain from a fall. We will follow. Zachary Johnson DO
--- NOTE | 2017-08-20 16:05 | PCM.PYCHPN ---
Psychiatric Progress Note - Psychiatric Progress Note Patient seen today, length of contact: 30min Patient Chief Complaint: "I am very depressed" Medical Problems: diabetes, hypertension, dyslipidemia Diagnostic Results: 08/10/17 06:50 08/10/17 06:50 Lab Results 08/11/17 07:15: POC Glucose (mg/dL) 142 H 08/10/17 21:47: POC Glucose (mg/dL) 219 H 08/10/17 15:51: POC Glucose (mg/dL) 137 H 08/10/17 13:10: Urine Color Yellow, Urine Appearance Clear, Urine pH 6.0, Ur Specific [place] 1.010, Urine Protein Negative, Urine Glucose (UA) >=1000, Urine Ketones Negative, Urine Blood Large H, Urine Nitrate Negative, Urine Bilirubin Negative, Urine Urobilinogen 0.2, Ur Leukocyte Esterase Negative, Urine RBC 0 - 2, Urine WBC 0 - 2, Ur Epithelial Cells 0 - 2, Amorphous Sediment Few, Urine Bacteria Small 08/10/17 11:42: POC Glucose (mg/dL) 281 H 08/10/17 08:39: POC Glucose (mg/dL) 179 H 08/10/17 06:50: Sodium 133, Potassium 4.0, Chloride 101, Carbon Dioxide 24, Anion Gap 13, BUN 11, Creatinine 0.6 L, Est GFR ( Amer) > 60, Est GFR ( Non-Af Amer) > 60, Random Glucose 237 H, Calcium 9.1, Total Bilirubin 0.8, AST 20, ALT 31, Alkaline Phosphatase 105, Total Protein 7.0, Albumin 3.6, Globulin 3.4, Albumin/Globulin Ratio 1.1 08/10/17 06:50: WBC 7.3, RBC 4.66, Hgb 12.8, Hct 37.2, MCV 79.8 L, MCH 27.5, MCHC 34.4, RDW 14.2, Plt Count 224, MPV 11.3 H 08/09/17 22:06: POC Glucose (mg/dL) 296 H 08/09/17 16:27: POC Glucose (mg/dL) 132 H 08/09/17 12:37: Urine Color Yellow, Urine Appearance Clear, Urine pH 6.0, Ur Specific [place] 1.015, Urine Protein Negative, Urine Glucose (UA) 500 H, Urine Ketones Negative, Urine Blood Large H, Urine Nitrate Negative, Urine Bilirubin Negative, Urine Urobilinogen 1.0 H, Ur Leukocyte Esterase Negative, Urine RBC 0 - 2, Urine WBC 5 - 10, Ur Epithelial Cells 3 - 4, Urine Bacteria Small 08/09/17 11:32: POC Glucose (mg/dL) 223 H 08/09/17 08:22: POC Glucose (mg/dL) 185 H 08/09/17 06:00: RPR Nonreactive 08/09/17 06:00: Sodium 136, Potassium 3.8, Chloride 103, Carbon Dioxide 26, Anion Gap 11, BUN 9, Creatinine 0.6 L, Est GFR ( Amer) > 60, Est GFR (Non -Af Amer) > 60, Random Glucose 189 H, Calcium 9.0, Total Bilirubin 0.8, AST 19, ALT 32, Alkaline Phosphatase 105, Total Protein 6.9, Albumin 3.5, Globulin 3.4, Albumin/Globulin Ratio 1.0 L 08/09/17 06:00: WBC 6.2, RBC 4.82, Hgb 13.0, Hct 38.2, MCV 79.3 L, MCH 27.0, MCHC 34.0, RDW 14.1, Plt Count 211, MPV 10.4, Gran % 45.2 L, Lymph % (Auto) 44.7 H, [place] % (Auto) 6.9 H, Eos % (Auto) 2.7, Baso % (Auto) 0.5, Gran # 2.79, Lymph # 2.8, [place] # 0.4, Eos # 0.2, Baso # 0.03 Vital Signs Temp Pulse Resp BP Pulse Ox 08/11/17 09:50 91 H 122/81 08/11/17 07:18 97.8 F 91 H 17 122/81 08/10/17 09:03 78 114/67 08/10/17 07:07 97.7 F 78 16 114/67 08/09/17 09:11 84 107/67 08/09/17 06:34 97.8 F 84 20 107/67 08/09/17 04:00 76 103/66 08/08/17 22:00 18 08/08/17 20:09 82 16 120/80 99 08/08/17 18:30 98.9 F 80 20 129/86 99 repeated UA showed no bacteria, clean, no need for antibiotics, d/w DSM 5 Symptoms Update: Patient is a single 37 y/o female with a psychiatric history of schizoaffective disorder and borderline personality disorder vs BIF, numerous prior admissions- most recently at [facility], history of suicide attempts most recently a year ago, in day treatment program at [facility], reported compliance with prescribed medications: Haldol Decanoate and Haldol po, Zoloft, trazodone and cogentin who was transferred from [facility] after being sent there by her day treatment program for depression, SI, and command auditory hallucinationsto kill herself. Patient reported to [facility] staff that she's been depressed for the last week and having suicidal thoughts to overdose on Tylenol. patient was seen in her room, 08/12/17 IM of haldol dec 100mg, pt tolerated it well. haldol was decreased yesterday because pt had dizziness pt still is not attending groups, self isolative, as per staff pt said that she is very depressed and it is the reason why she does not want to attend groups, pt also is not taking a shower. as per staff and pt, pt is not ready for d/c Mental status examination: Patient appears at her chronological age, better organized, intermittent eye contact, speech was underproductive, poverty of speech, mood described "I am very depressed", affect was labile, mood incongruent, thought process seems to be disorganized, there is poverty of thoughts, thought content: Patient denied hallucinations today, denied feeling paranoid, patient appears to be internally preoccupied and paranoid, patient denied thoughts of harming herself or others, denied intent or plan, insight and judgment are limited, impulses are unpredictable. Diagnostic Results: Schizoaffective Disorder Treatment plan: grp, milieu and supportive tx Haldol 5 mg po bid for hallucinations Haldol Decanoate 100 mg IM last does was 08/12/17 Cogentin 0.5 mg po bid for EPS prophylaxis Zoloft 200mg po daily for depression sonata 10mg po hs for insomnia Haldol 5 mg with Ativan 2 mg q6 prn: agitation Dr. Meléndez contacted Dr. Lolis Jimenes who was listed as patient's psychiatrist on [facility] paperwork. Dr. Jimenes indicates that she no longer treats this patient. Dr. Jimenes reports that patient is schizophrenic and does not have Borderline Personality Disorder. Patient is generally a kind person who easily decompensates when she spends time out of her sister's home. consultation for discharge plan and social issues Med management Family involvement Follow up on labs Will monitor closely evaluation for d/c planning Pt was educated about risk/benefits and alternatives of medications, coping strategies (safety plan, suicide prevention), relapse prevention, importance of follow up with psychiatrist and therapist, stay away from drugs/alcohol/smoking Medication Change: Yes (zoloft increased and haldol po d/c) Medical Record Reviewed: Yes Mental Status Examination - Cognitive Function Orientation: Person, Place, Situation Attention: WNL - Mood Mood: Depressed ("depression is improving, feel more hopeful") - Affect Affect: Constricted - Speech Speech: Appropriate - Formal Thought Process Formal Thought Process: Hallucinations (improving "I know they aren't real") - Suicidal Ideation Suicidal Ideation: No - Homicidal Ideation Homicidal Ideation: No Goal/Treatment Plan - Goal/Treatment Plan Need for Continued Stay: Remain at risks for inpatient hospitalization, Severe depression anxiety, Discharge may exacerbated symptoms, Severe functional impairment Progress Toward Problem(s) and Goals/Treatment Plan: 08/09/17 08/09/17 08/09/17 04:00 06:34 09:11 Temperature 97.8 F Pulse Rate 83 84 84 Respiratory 20 Rate Blood Pressure 106/70 107/67 107/67 [facility] ST[facility] Laboratory Results - last 24 hr 08/09/17 08/09/17 08/09/17 06:00 06:00 08:22 WBC 6.2 RBC 4.82 Hgb 13.0 Hct 38.2 MCV 79.3 L MCH 27.0 MCHC 34.0 RDW 14.1 Plt Count 211 MPV 10.4 Gran % 45.2 L Lymph % (Auto) 44.7 H [place] % (Auto) 6.9 H Eos % (Auto) 2.7 Baso % (Auto) 0.5 Gran # 2.79 Lymph # 2.8 [place] # 0.4 Eos # 0.2 Baso # 0.03 Sodium 136 Potassium 3.8 Chloride 103 Carbon Dioxide 26 Anion Gap 11 BUN 9 Creatinine 0.6 L Est GFR ( Amer) > 60 Est GFR (Non-Af Amer) > 60 POC Glucose (mg/dL) 185 H Random Glucose 189 H Calcium 9.0 Total Bilirubin 0.8 AST 19 ALT 32 Alkaline Phosphatase 105 Total Protein 6.9 Albumin 3.5 Globulin 3.4 Albumin/Globulin Ratio 1.0 L Laboratory Results - last 24 hr 08/09/17 08/09/17 08/09/17 06:00 11:32 12:37 WBC RBC Hgb Hct MCV MCH MCHC RDW Plt Count MPV Sodium Potassium Chloride Carbon Dioxide Anion Gap BUN Creatinine Est GFR ( Amer) Est GFR (Non-Af Amer) POC Glucose (mg/dL) 223 H Random Glucose Calcium Total Bilirubin AST ALT Alkaline Phosphatase Total Protein Albumin Globulin Albumin/Globulin Ratio Urine Color Yellow Urine Appearance Clear Urine pH 6.0 Ur Specific [place] 1.015 Urine Protein Negative Urine Glucose (UA) 500 H Urine Ketones Negative Urine Blood Large H Urine Nitrate Negative Urine Bilirubin Negative Urine Urobilinogen 1.0 H Ur Leukocyte Esterase Negative Urine RBC 0 - 2 Urine WBC 5 - 10 Ur Epithelial Cells 3 - 4 Urine Bacteria Small RPR Nonreactive 08/09/17 08/09/17 08/10/17 16:27 22:06 06:50 WBC 7.3 RBC 4.66 Hgb 12.8 Hct 37.2 MCV 79.8 L MCH 27.5 MCHC 34.4 RDW 14.2 Plt Count 224 MPV 11.3 H Sodium Potassium Chloride Carbon Dioxide Anion Gap BUN Creatinine Est GFR ( Amer) Est GFR (Non-Af Amer) POC Glucose (mg/dL) 132 H 296 H Random Glucose Calcium Total Bilirubin AST ALT Alkaline Phosphatase Total Protein Albumin Globulin Albumin/Globulin Ratio Urine Color Urine Appearance Urine pH Ur Specific [place] Urine Protein Urine Glucose (UA) Urine Ketones Urine Blood Urine Nitrate Urine Bilirubin Urine Urobilinogen Ur Leukocyte Esterase Urine RBC Urine WBC Ur Epithelial Cells Urine Bacteria RPR 08/10/17 08/10/17 06:50 08:39 WBC RBC Hgb Hct MCV MCH MCHC RDW Plt Count MPV Sodium 133 Potassium 4.0 Chloride 101 Carbon Dioxide 24 Anion Gap 13 BUN 11 Creatinine 0.6 L Est GFR ( Amer) > 60 Est GFR (Non-Af Amer) > 60 POC Glucose (mg/dL) 179 H Random Glucose 237 H Calcium 9.1 Total Bilirubin 0.8 AST 20 ALT 31 Alkaline Phosphatase 105 Total Protein 7.0 Albumin 3.6 Globulin 3.4 Albumin/Globulin Ratio 1.1 Urine Color Urine Appearance Urine pH Ur Specific [place] Urine Protein Urine Glucose (UA) Urine Ketones Urine Blood Urine Nitrate Urine Bilirubin Urine Urobilinogen Ur Leukocyte Esterase Urine RBC Urine WBC Ur Epithelial Cells Urine Bacteria RPR Estimated Date of D/C: 08/25/17 (will monitor closely)
[2017-08-21 06:58] VITALS: O2SAT 98
--- NOTE | 2017-08-21 09:19 | PN ---
DATE: SUBJECTIVE: I saw her resting comfortably in bed. She tells me she is leaving today. She is feeling better, improving, and smiling. No complaints. No more bad thoughts. MEDICATIONS: She is on Ativan, Benadryl, Cogentin, Glucophage, Haldol, insulin, Januvia, Lipitor, Maalox, milk of magnesia, Sonata, Tylenol, Zestril and Zoloft. PHYSICAL EXAMINATION: VITAL SIGNS: She has 97.8 temperature, 80 pulse, 117/70 blood pressure, 20 respiratory rate, and 90% O2 saturation on room air. HEENT: Head is atraumatic and normocephalic. HEART: Regular rate. LUNGS: Clear to auscultation. ABDOMEN: Soft and obese. EXTREMITIES: No edema. ASSESSMENT AND PLAN: Overall, I do think, she is improved. Last blood sugar is 102. She did well as per psychiatry. Continue aggressive treatment and care. She had suicidal ideation, depression, anxiety, diabetes, hypertension, high cholesterol, urinary tract infection, nausea, vomiting and left chin pain from a fall, which is better. Zachary Johnson DO
[2017-08-21] MEDS: Insulin Reg-MEDIUM-Coverage SC SCH ×4 (09:25→21:09)
--- NOTE | 2017-08-21 16:25 | PCM.PYCHPN ---
Psychiatric Progress Note - Psychiatric Progress Note Patient seen today, length of contact: 30min Patient Chief Complaint: "I am little better" Medical Problems: diabetes, hypertension, dyslipidemia Diagnostic Results: 08/10/17 06:50 08/10/17 06:50 Lab Results 08/11/17 07:15: POC Glucose (mg/dL) 142 H 08/10/17 21:47: POC Glucose (mg/dL) 219 H 08/10/17 15:51: POC Glucose (mg/dL) 137 H 08/10/17 13:10: Urine Color Yellow, Urine Appearance Clear, Urine pH 6.0, Ur Specific Thelma 1.010, Urine Protein Negative, Urine Glucose (UA) >=1000, Urine Ketones Negative, Urine Blood Large H, Urine Nitrate Negative, Urine Bilirubin Negative, Urine Urobilinogen 0.2, Ur Leukocyte Esterase Negative, Urine RBC 0 - 2, Urine WBC 0 - 2, Ur Epithelial Cells 0 - 2, Amorphous Sediment Few, Urine Bacteria Small 08/10/17 11:42: POC Glucose (mg/dL) 281 H 08/10/17 08:39: POC Glucose (mg/dL) 179 H 08/10/17 06:50: Sodium 133, Potassium 4.0, Chloride 101, Carbon Dioxide 24, Anion Gap 13, BUN 11, Creatinine 0.6 L, Est GFR ( Amer) > 60, Est GFR ( Non-Af Amer) > 60, Random Glucose 237 H, Calcium 9.1, Total Bilirubin 0.8, AST 20, ALT 31, Alkaline Phosphatase 105, Total Protein 7.0, Albumin 3.6, Globulin 3.4, Albumin/Globulin Ratio 1.1 08/10/17 06:50: WBC 7.3, RBC 4.66, Hgb 12.8, Hct 37.2, MCV 79.8 L, MCH 27.5, MCHC 34.4, RDW 14.2, Plt Count 224, MPV 11.3 H 08/09/17 22:06: POC Glucose (mg/dL) 296 H 08/09/17 16:27: POC Glucose (mg/dL) 132 H 08/09/17 12:37: Urine Color Yellow, Urine Appearance Clear, Urine pH 6.0, Ur Specific Thelma 1.015, Urine Protein Negative, Urine Glucose (UA) 500 H, Urine Ketones Negative, Urine Blood Large H, Urine Nitrate Negative, Urine Bilirubin Negative, Urine Urobilinogen 1.0 H, Ur Leukocyte Esterase Negative, Urine RBC 0 - 2, Urine WBC 5 - 10, Ur Epithelial Cells 3 - 4, Urine Bacteria Small 08/09/17 11:32: POC Glucose (mg/dL) 223 H 08/09/17 08:22: POC Glucose (mg/dL) 185 H 08/09/17 06:00: RPR Nonreactive 08/09/17 06:00: Sodium 136, Potassium 3.8, Chloride 103, Carbon Dioxide 26, Anion Gap 11, BUN 9, Creatinine 0.6 L, Est GFR ( Amer) > 60, Est GFR (Non -Af Amer) > 60, Random Glucose 189 H, Calcium 9.0, Total Bilirubin 0.8, AST 19, ALT 32, Alkaline Phosphatase 105, Total Protein 6.9, Albumin 3.5, Globulin 3.4, Albumin/Globulin Ratio 1.0 L 08/09/17 06:00: WBC 6.2, RBC 4.82, Hgb 13.0, Hct 38.2, MCV 79.3 L, MCH 27.0, MCHC 34.0, RDW 14.1, Plt Count 211, MPV 10.4, Gran % 45.2 L, Lymph % (Auto) 44.7 H, [place] % (Auto) 6.9 H, Eos % (Auto) 2.7, Baso % (Auto) 0.5, Gran # 2.79, Lymph # 2.8, [place] # 0.4, Eos # 0.2, Baso # 0.03 Vital Signs Temp Pulse Resp BP Pulse Ox 08/11/17 09:50 91 H 122/81 08/11/17 07:18 97.8 F 91 H 17 122/81 08/10/17 09:03 78 114/67 08/10/17 07:07 97.7 F 78 16 114/67 08/09/17 09:11 84 107/67 08/09/17 06:34 97.8 F 84 20 107/67 08/09/17 04:00 76 103/66 08/08/17 22:00 18 08/08/17 20:09 82 16 120/80 99 08/08/17 18:30 98.9 F 80 20 129/86 99 repeated UA showed no bacteria, clean, no need for antibiotics, d/w DSM 5 Symptoms Update: Patient is a single 37 y/o female with a psychiatric history of schizoaffective disorder and borderline personality disorder vs BIF, numerous prior admissions- most recently at [facility], history of suicide attempts most recently a year ago, in day treatment program at [facility], reported compliance with prescribed medications: Haldol Decanoate and Haldol po, Zoloft, trazodone and cogentin who was transferred from [facility] after being sent there by her day treatment program for depression, SI, and command auditory hallucinationsto kill herself. Patient reported to [facility] staff that she's been depressed for the last week and having suicidal thoughts to overdose on Tylenol. patient was seen in her room today 08/12/17 IM of haldol dec 100mg, pt tolerated it well. pt took a shower yesterday, still staying in her room, minimal interaction with others. Mental status examination: Patient appears at her chronological age, better organized, intermittent eye contact, speech was underproductive, poverty of speech, mood described "I am little better", affect was labile, mood incongruent, thought process seems to be disorganized, there is poverty of thoughts, thought content: Patient denied hallucinations today, denied feeling paranoid, patient appears to be internally preoccupied and paranoid, patient denied thoughts of harming herself or others, denied intent or plan, insight and judgment are limited, impulses are unpredictable. Diagnostic Results: Schizoaffective Disorder Treatment plan: grp, milieu and supportive tx Haldol 5 mg po bid was d/c Haldol Decanoate 100 mg IM last does was 08/12/17 Cogentin 0.5 mg po bid for EPS prophylaxis Zoloft 200mg po daily for depression sonata 10mg po hs for insomnia Haldol 5 mg with Ativan 2 mg q6 prn: agitation Dr. Meléndez contacted Dr. Lolis Jimenes who was listed as patient's psychiatrist on [facility] paperwork. Dr. Jimenes indicates that she no longer treats this patient. Dr. Jimenes reports that patient is schizophrenic and does not have Borderline Personality Disorder. Patient is generally a kind person who easily decompensates when she spends time out of her sister's home. consultation for discharge plan and social issues Med management Family involvement Follow up on labs Will monitor closely evaluation for d/c planning Pt was educated about risk/benefits and alternatives of medications, coping strategies (safety plan, suicide prevention), relapse prevention, importance of follow up with psychiatrist and therapist, stay away from drugs/alcohol/smoking Medication Change: Yes (zoloft increased and haldol po d/c) Medical Record Reviewed: Yes Mental Status Examination - Cognitive Function Orientation: Person, Place, Situation Attention: WNL - Mood Mood: Depressed ("depression is improving, feel more hopeful") - Affect Affect: Constricted - Speech Speech: Appropriate - Formal Thought Process Formal Thought Process: Hallucinations (improving "I know they aren't real") - Suicidal Ideation Suicidal Ideation: No - Homicidal Ideation Homicidal Ideation: No Goal/Treatment Plan - Goal/Treatment Plan Need for Continued Stay: Remain at risks for inpatient hospitalization, Severe depression anxiety, Discharge may exacerbated symptoms, Severe functional impairment Progress Toward Problem(s) and Goals/Treatment Plan: 08/09/17 08/09/17 08/09/17 04:00 06:34 09:11 Temperature 97.8 F Pulse Rate 83 84 84 Respiratory 20 Rate Blood Pressure 106/70 107/67 107/67 [facility] Laboratory Results - last 24 hr 08/09/17 08/09/17 08/09/17 06:00 06:00 08:22 WBC 6.2 RBC 4.82 Hgb 13.0 Hct 38.2 MCV 79.3 L MCH 27.0 MCHC 34.0 RDW 14.1 Plt Count 211 MPV 10.4 Gran % 45.2 L Lymph % (Auto) 44.7 H [place] % (Auto) 6.9 H Eos % (Auto) 2.7 Baso % (Auto) 0.5 Gran # 2.79 Lymph # 2.8 [place] # 0.4 Eos # 0.2 Baso # 0.03 Sodium 136 Potassium 3.8 Chloride 103 Carbon Dioxide 26 Anion Gap 11 BUN 9 Creatinine 0.6 L Est GFR ( Amer) > 60 Est GFR (Non-Af Amer) > 60 POC Glucose (mg/dL) 185 H Random Glucose 189 H Calcium 9.0 Total Bilirubin 0.8 AST 19 ALT 32 Alkaline Phosphatase 105 Total Protein 6.9 Albumin 3.5 Globulin 3.4 Albumin/Globulin Ratio 1.0 L Laboratory Results - last 24 hr 08/09/17 08/09/17 08/09/17 06:00 11:32 12:37 WBC RBC Hgb Hct MCV MCH MCHC RDW Plt Count MPV Sodium Potassium Chloride Carbon Dioxide Anion Gap BUN Creatinine Est GFR ( Amer) Est GFR (Non-Af Amer) POC Glucose (mg/dL) 223 H Random Glucose Calcium Total Bilirubin AST ALT Alkaline Phosphatase Total Protein Albumin Globulin Albumin/Globulin Ratio Urine Color Yellow Urine Appearance Clear Urine pH 6.0 Ur Specific Thelma 1.015 Urine Protein Negative Urine Glucose (UA) 500 H Urine Ketones Negative Urine Blood Large H Urine Nitrate Negative Urine Bilirubin Negative Urine Urobilinogen 1.0 H Ur Leukocyte Esterase Negative Urine RBC 0 - 2 Urine WBC 5 - 10 Ur Epithelial Cells 3 - 4 Urine Bacteria Small RPR Nonreactive 08/09/17 08/09/17 08/10/17 16:27 22:06 06:50 WBC 7.3 RBC 4.66 Hgb 12.8 Hct 37.2 MCV 79.8 L MCH 27.5 MCHC 34.4 RDW 14.2 Plt Count 224 MPV 11.3 H Sodium Potassium Chloride Carbon Dioxide Anion Gap BUN Creatinine Est GFR ( Amer) Est GFR (Non-Af Amer) POC Glucose (mg/dL) 132 H 296 H Random Glucose Calcium Total Bilirubin AST ALT Alkaline Phosphatase Total Protein Albumin Globulin Albumin/Globulin Ratio Urine Color Urine Appearance Urine pH Ur Specific Thelma Urine Protein Urine Glucose (UA) Urine Ketones Urine Blood Urine Nitrate Urine Bilirubin Urine Urobilinogen Ur Leukocyte Esterase Urine RBC Urine WBC Ur Epithelial Cells Urine Bacteria RPR 08/10/17 08/10/17 06:50 08:39 WBC RBC Hgb Hct MCV MCH MCHC RDW Plt Count MPV Sodium 133 Potassium 4.0 Chloride 101 Carbon Dioxide 24 Anion Gap 13 BUN 11 Creatinine 0.6 L Est GFR ( Amer) > 60 Est GFR (Non-Af Amer) > 60 POC Glucose (mg/dL) 179 H Random Glucose 237 H Calcium 9.1 Total Bilirubin 0.8 AST 20 ALT 31 Alkaline Phosphatase 105 Total Protein 7.0 Albumin 3.6 Globulin 3.4 Albumin/Globulin Ratio 1.1 Urine Color Urine Appearance Urine pH Ur Specific Thelma Urine Protein Urine Glucose (UA) Urine Ketones Urine Blood Urine Nitrate Urine Bilirubin Urine Urobilinogen Ur Leukocyte Esterase Urine RBC Urine WBC Ur Epithelial Cells Urine Bacteria RPR Estimated Date of D/C: 08/25/17 (will monitor closely)
[2017-08-22] MEDS: Insulin Reg-MEDIUM-Coverage SC SCH ×4 (08:00→21:39)
--- NOTE | 2017-08-22 09:00 | PN ---
DATE: SUBJECTIVE: I saw Taina resting comfortably in bed. She slept well. She is smiling and she is feeling better, but she tells me she lost her appetite, she wants the Ensure, she has had it before. I will give her some Ensure to cans a day and also get dietary involved, the dietitian to talk to her about the diet and choices of food, also I will check her labs tomorrow. Medically, she is doing okay, mentally, I think she is improving and together her eating better. PHYSICAL EXAMINATION: VITAL SIGNS: She has a 97.8 temperature, 76 pulse, 109/75 blood pressure, 20 respiratory rate, and 90% O2 saturation on room air. HEENT: Head is atraumatic and normocephalic. Throat is moist. NECK: Supple. HEART: Regular rate. LUNGS: Clear to auscultation. ABDOMEN: Soft, obese, and nontender. EXTREMITIES: No edema. MEDICATIONS: She is currently on Ativan, Benadryl, Cogentin, Glucophage, Haldol, insulin, Januvia, Lipitor, milk of magnesia, Maalox, Sonata, Tylenol, Zestril and Zoloft. ASSESSMENT AND PLAN: I am going to check on her laboratories tomorrow. Her last blood sugar was 106. Checking her full laboratory tomorrow plus dietary and dietary consult and Ensure. RPR was negative. Continue to follow closely. She had multiple issues; depression, suicidal ideation, anxiety, diabetes, hypertension, high cholesterol, urinary tract infection, nausea, vomiting, left foot pain, and now poor appetite. Zachary Johnson DO
--- NOTE | 2017-08-22 10:33 | PCM.BM ---
<Tony Pompa - Last Filed: 08/22/17 10:33> Treatment Plan Problems - Problems identified on initial assessmt AUDITORY HALLUCINATION Date Initiated: 08/11/17 Time Initiated: 17:00 Assessment reference: NA Status: Active Priority: 1 Comment: PT STILL ADMITS TO HEARING VOICES AT TIMESW SUICIDAL IDEATION Date Initiated: 08/11/17 Time Initiated: 17:00 Date resolved: 08/18/17 Assessment reference: NA Status: Active Priority: 2 Comment: DENIES S/H IDEATION Treatment assets and liabiliti Patient Assests: cooperative, ADL independent, physically healthy, cognitively intact Patient Liabilities: poor support system - Milieu Protocol Maintain good personal hygiene: every shift Encourage regular showers, every shift Remind patient to perform daily oral care, every shift Assist patient to perform ADL's Maintain personal safety: daily Educate patient to report safety concerns to staff, daily Monitor environment for contraband/sharps Medication safety: Monitor for expected outcome, potential side effects: daily, Assess barriers to learning: daily, Assess readiness for medication education: daily Milieu Narrative: 08/09/17 08/09/17 08/09/17 04:00 06:34 09:11 Temperature 97.8 F Pulse Rate 83 84 84 Respiratory 20 Rate Blood Pressure 106/70 107/67 107/67 [facility] Laboratory Results - last 24 hr 08/09/17 08/09/17 08/09/17 06:00 06:00 08:22 WBC 6.2 RBC 4.82 Hgb 13.0 Hct 38.2 MCV 79.3 L MCH 27.0 MCHC 34.0 RDW 14.1 Plt Count 211 MPV 10.4 Gran % 45.2 L Lymph % (Auto) 44.7 H [place] % (Auto) 6.9 H Eos % (Auto) 2.7 Baso % (Auto) 0.5 Gran # 2.79 Lymph # 2.8 [place] # 0.4 Eos # 0.2 Baso # 0.03 Sodium 136 Potassium 3.8 Chloride 103 Carbon Dioxide 26 Anion Gap 11 BUN 9 Creatinine 0.6 L Est GFR ( Amer) > 60 Est GFR (Non-Af Amer) > 60 POC Glucose (mg/dL) 185 H Random Glucose 189 H Calcium 9.0 Total Bilirubin 0.8 AST 19 ALT 32 Alkaline Phosphatase 105 Total Protein 6.9 Albumin 3.5 Globulin 3.4 Albumin/Globulin Ratio 1.0 L Laboratory Results - last 24 hr 08/09/17 08/09/17 08/09/17 06:00 11:32 12:37 WBC RBC Hgb Hct MCV MCH MCHC RDW Plt Count MPV Sodium Potassium Chloride Carbon Dioxide Anion Gap BUN Creatinine Est GFR ( Amer) Est GFR (Non-Af Amer) POC Glucose (mg/dL) 223 H Random Glucose Calcium Total Bilirubin AST ALT Alkaline Phosphatase Total Protein Albumin Globulin Albumin/Globulin Ratio Urine Color Yellow Urine Appearance Clear Urine pH 6.0 Ur Specific [place] 1.015 Urine Protein Negative Urine Glucose (UA) 500 H Urine Ketones Negative Urine Blood Large H Urine Nitrate Negative Urine Bilirubin Negative Urine Urobilinogen 1.0 H Ur Leukocyte Esterase Negative Urine RBC 0 - 2 Urine WBC 5 - 10 Ur Epithelial Cells 3 - 4 Urine Bacteria Small RPR Nonreactive 08/09/17 08/09/17 08/10/17 16:27 22:06 06:50 WBC 7.3 RBC 4.66 Hgb 12.8 Hct 37.2 MCV 79.8 L MCH 27.5 MCHC 34.4 RDW 14.2 Plt Count 224 MPV 11.3 H Sodium Potassium Chloride Carbon Dioxide Anion Gap BUN Creatinine Est GFR ( Amer) Est GFR (Non-Af Amer) POC Glucose (mg/dL) 132 H 296 H Random Glucose Calcium Total Bilirubin AST ALT Alkaline Phosphatase Total Protein Albumin Globulin Albumin/Globulin Ratio Urine Color Urine Appearance Urine pH Ur Specific [place] Urine Protein Urine Glucose (UA) Urine Ketones Urine Blood Urine Nitrate Urine Bilirubin Urine Urobilinogen Ur Leukocyte Esterase Urine RBC Urine WBC Ur Epithelial Cells Urine Bacteria RPR 08/10/17 08/10/17 06:50 08:39 WBC RBC Hgb Hct MCV MCH MCHC RDW Plt Count MPV Sodium 133 Potassium 4.0 Chloride 101 Carbon Dioxide 24 Anion Gap 13 BUN 11 Creatinine 0.6 L Est GFR ( Amer) > 60 Est GFR (Non-Af Amer) > 60 POC Glucose (mg/dL) 179 H Random Glucose 237 H Calcium 9.1 Total Bilirubin 0.8 AST 20 ALT 31 Alkaline Phosphatase 105 Total Protein 7.0 Albumin 3.6 Globulin 3.4 Albumin/Globulin Ratio 1.1 Urine Color Urine Appearance Urine pH Ur Specific [place] Urine Protein Urine Glucose (UA) Urine Ketones Urine Blood Urine Nitrate Urine Bilirubin Urine Urobilinogen Ur Leukocyte Esterase Urine RBC Urine WBC Ur Epithelial Cells Urine Bacteria RPR Family Contact Family involvement: No known Family/SO Discharge/Continuing Care - Education Needs Education Needs: Patient Medication, Patient Diagnosis/Disease Process, Patient Coping Skills, Patient Placement options, Patient Community resources, Patient Activities of Daily Living, Patient Nutrition, Patient Health Practices/Safety, Patient Personal Hygiene/Grooming, Patient Aftercare Safety Plan - Discharge Discharge Criteria: Tolerates medication w/o severe side effects, Free of Suicidal thoughts, Free of agitation, Normal sleep pattern, Ability to care for self, Reduction of target symptoms Discharge to:: Home - Treatment Team Participation Patient/Family/SO Statement: 08/09/17 08/09/17 08/09/17 04:00 06:34 09:11 Temperature 97.8 F Pulse Rate 83 84 84 Respiratory 20 Rate Blood Pressure 106/70 107/67 107/67 [facility] Laboratory Results - last 24 hr 08/09/17 08/09/17 08/09/17 06:00 06:00 08:22 WBC 6.2 RBC 4.82 Hgb 13.0 Hct 38.2 MCV 79.3 L MCH 27.0 MCHC 34.0 RDW 14.1 Plt Count 211 MPV 10.4 Gran % 45.2 L Lymph % (Auto) 44.7 H [place] % (Auto) 6.9 H Eos % (Auto) 2.7 Baso % (Auto) 0.5 Gran # 2.79 Lymph # 2.8 [place] # 0.4 Eos # 0.2 Baso # 0.03 Sodium 136 Potassium 3.8 Chloride 103 Carbon Dioxide 26 Anion Gap 11 BUN 9 Creatinine 0.6 L Est GFR ( Amer) > 60 Est GFR (Non-Af Amer) > 60 POC Glucose (mg/dL) 185 H Random Glucose 189 H Calcium 9.0 Total Bilirubin 0.8 AST 19 ALT 32 Alkaline Phosphatase 105 Total Protein 6.9 Albumin 3.5 Globulin 3.4 Albumin/Globulin Ratio 1.0 L Laboratory Results - last 24 hr 08/09/17 08/09/17 08/09/17 06:00 11:32 12:37 WBC RBC Hgb Hct MCV MCH MCHC RDW Plt Count MPV Sodium Potassium Chloride Carbon Dioxide Anion Gap BUN Creatinine Est GFR ( Amer) Est GFR (Non-Af Amer) POC Glucose (mg/dL) 223 H Random Glucose Calcium Total Bilirubin AST ALT Alkaline Phosphatase Total Protein Albumin Globulin Albumin/Globulin Ratio Urine Color Yellow Urine Appearance Clear Urine pH 6.0 Ur Specific [place] 1.015 Urine Protein Negative Urine Glucose (UA) 500 H Urine Ketones Negative Urine Blood Large H Urine Nitrate Negative Urine Bilirubin Negative Urine Urobilinogen 1.0 H Ur Leukocyte Esterase Negative Urine RBC 0 - 2 Urine WBC 5 - 10 Ur Epithelial Cells 3 - 4 Urine Bacteria Small RPR Nonreactive 08/09/17 08/09/17 08/10/17 16:27 22:06 06:50 WBC 7.3 RBC 4.66 Hgb 12.8 Hct 37.2 MCV 79.8 L MCH 27.5 MCHC 34.4 RDW 14.2 Plt Count 224 MPV 11.3 H Sodium Potassium Chloride Carbon Dioxide Anion Gap BUN Creatinine Est GFR ( Amer) Est GFR (Non-Af Amer) POC Glucose (mg/dL) 132 H 296 H Random Glucose Calcium Total Bilirubin AST ALT Alkaline Phosphatase Total Protein Albumin Globulin Albumin/Globulin Ratio Urine Color Urine Appearance Urine pH Ur Specific [place] Urine Protein Urine Glucose (UA) Urine Ketones Urine Blood Urine Nitrate Urine Bilirubin Urine Urobilinogen Ur Leukocyte Esterase Urine RBC Urine WBC Ur Epithelial Cells Urine Bacteria RPR 08/10/17 08/10/17 06:50 08:39 WBC RBC Hgb Hct MCV MCH MCHC RDW Plt Count MPV Sodium 133 Potassium 4.0 Chloride 101 Carbon Dioxide 24 Anion Gap 13 BUN 11 Creatinine 0.6 L Est GFR ( Amer) > 60 Est GFR (Non-Af Amer) > 60 POC Glucose (mg/dL) 179 H Random Glucose 237 H Calcium 9.1 Total Bilirubin 0.8 AST 20 ALT 31 Alkaline Phosphatase 105 Total Protein 7.0 Albumin 3.6 Globulin 3.4 Albumin/Globulin Ratio 1.1 Urine Color Urine Appearance Urine pH Ur Specific [place] Urine Protein Urine Glucose (UA) Urine Ketones Urine Blood Urine Nitrate Urine Bilirubin Urine Urobilinogen Ur Leukocyte Esterase Urine RBC Urine WBC Ur Epithelial Cells Urine Bacteria RPR Treatment Plan Review - Problem AUDITORY HALLUCINATION Time Initiated: 17:00 SUICIDAL IDEATION Time Initiated: 17:00 <Avelina Valladares - Last Filed: 08/22/17 12:23> - Diagnosis (1) Schizoaffective disorder Status: Acute Interventions: 08/22/17 12:22 pt is improving tolerates meds well no side effects encouraged to socialize with others hygiene is still poor, but pt takes shower pt got Haldol Dec meds compliant pt will be f/u in [facility]
--- NOTE | 2017-08-22 12:33 | PCM.PYCHPN ---
Psychiatric Progress Note - Psychiatric Progress Note Patient seen today, length of contact: 30min Patient Chief Complaint: "I am little better, voices are not bothering me that much" Medical Problems: diabetes, hypertension, dyslipidemia Diagnostic Results: 08/10/17 06:50 08/10/17 06:50 Lab Results 08/11/17 07:15: POC Glucose (mg/dL) 142 H 08/10/17 21:47: POC Glucose (mg/dL) 219 H 08/10/17 15:51: POC Glucose (mg/dL) 137 H 08/10/17 13:10: Urine Color Yellow, Urine Appearance Clear, Urine pH 6.0, Ur Specific [place] 1.010, Urine Protein Negative, Urine Glucose (UA) >=1000, Urine Ketones Negative, Urine Blood Large H, Urine Nitrate Negative, Urine Bilirubin Negative, Urine Urobilinogen 0.2, Ur Leukocyte Esterase Negative, Urine RBC 0 - 2, Urine WBC 0 - 2, Ur Epithelial Cells 0 - 2, Amorphous Sediment Few, Urine Bacteria Small 08/10/17 11:42: POC Glucose (mg/dL) 281 H 08/10/17 08:39: POC Glucose (mg/dL) 179 H 08/10/17 06:50: Sodium 133, Potassium 4.0, Chloride 101, Carbon Dioxide 24, Anion Gap 13, BUN 11, Creatinine 0.6 L, Est GFR ( Amer) > 60, Est GFR ( Non-Af Amer) > 60, Random Glucose 237 H, Calcium 9.1, Total Bilirubin 0.8, AST 20, ALT 31, Alkaline Phosphatase 105, Total Protein 7.0, Albumin 3.6, Globulin 3.4, Albumin/Globulin Ratio 1.1 08/10/17 06:50: WBC 7.3, RBC 4.66, Hgb 12.8, Hct 37.2, MCV 79.8 L, MCH 27.5, MCHC 34.4, RDW 14.2, Plt Count 224, MPV 11.3 H 08/09/17 22:06: POC Glucose (mg/dL) 296 H 08/09/17 16:27: POC Glucose (mg/dL) 132 H 08/09/17 12:37: Urine Color Yellow, Urine Appearance Clear, Urine pH 6.0, Ur Specific [place] 1.015, Urine Protein Negative, Urine Glucose (UA) 500 H, Urine Ketones Negative, Urine Blood Large H, Urine Nitrate Negative, Urine Bilirubin Negative, Urine Urobilinogen 1.0 H, Ur Leukocyte Esterase Negative, Urine RBC 0 - 2, Urine WBC 5 - 10, Ur Epithelial Cells 3 - 4, Urine Bacteria Small 08/09/17 11:32: POC Glucose (mg/dL) 223 H 08/09/17 08:22: POC Glucose (mg/dL) 185 H 08/09/17 06:00: RPR Nonreactive 08/09/17 06:00: Sodium 136, Potassium 3.8, Chloride 103, Carbon Dioxide 26, Anion Gap 11, BUN 9, Creatinine 0.6 L, Est GFR ( Amer) > 60, Est GFR (Non -Af Amer) > 60, Random Glucose 189 H, Calcium 9.0, Total Bilirubin 0.8, AST 19, ALT 32, Alkaline Phosphatase 105, Total Protein 6.9, Albumin 3.5, Globulin 3.4, Albumin/Globulin Ratio 1.0 L 08/09/17 06:00: WBC 6.2, RBC 4.82, Hgb 13.0, Hct 38.2, MCV 79.3 L, MCH 27.0, MCHC 34.0, RDW 14.1, Plt Count 211, MPV 10.4, Gran % 45.2 L, Lymph % (Auto) 44.7 H, [place] % (Auto) 6.9 H, Eos % (Auto) 2.7, Baso % (Auto) 0.5, Gran # 2.79, Lymph # 2.8, [place] # 0.4, Eos # 0.2, Baso # 0.03 Vital Signs Temp Pulse Resp BP Pulse Ox 08/11/17 09:50 91 H 122/81 08/11/17 07:18 97.8 F 91 H 17 122/81 08/10/17 09:03 78 114/67 08/10/17 07:07 97.7 F 78 16 114/67 08/09/17 09:11 84 107/67 08/09/17 06:34 97.8 F 84 20 107/67 08/09/17 04:00 76 103/66 08/08/17 22:00 18 08/08/17 20:09 82 16 120/80 99 08/08/17 18:30 98.9 F 80 20 129/86 99 repeated UA showed no bacteria, clean, no need for antibiotics, d/w Temcorinne Pulse Resp BP Pulse Ox 97.9 F 90 16 115/79 98 08/22/17 07:00 08/22/17 09:06 08/22/17 07:00 08/22/17 09:06 08/21/17 06:58 DSM 5 Symptoms Update: Patient is a single 37 y/o female with a psychiatric history of schizoaffective disorder and borderline personality disorder vs BIF, numerous prior admissions- most recently at [facility], history of suicide attempts most recently a year ago, in day treatment program at [facility], reported compliance with prescribed medications: Haldol Decanoate and Haldol po, Zoloft, trazodone and cogentin who was transferred from [facility] after being sent there by her day treatment program for depression, SI, and command auditory hallucinationsto kill herself. Patient reported to [facility] staff that she's been depressed for the last week and having suicidal thoughts to overdose on Tylenol. patient was seen in the treatment team today. 08/12/17 IM of haldol dec 100mg, pt tolerated it well, next dose is September 09. pt took a shower yesterday, still staying in her room, minimal interaction with others. pt c/o burning while urinating, UA and Urine c/s ordered. Mental status examination: Patient appears at her chronological age, better organized, intermittent eye contact, speech was underproductive, poverty of speech, mood described "I am little better", affect was labile, mood incongruent, thought process seems to be disorganized, there is poverty of thoughts, thought content: Patient denied hallucinations today, denied feeling paranoid, patient appears less psychotic, patient denied thoughts of harming herself or others, denied intent or plan, insight and judgment are limited, impulses are unpredictable. Diagnostic Results: Schizoaffective Disorder Treatment plan: grp, milieu and supportive tx Haldol 5 mg po bid was d/c, tolerates well Haldol Decanoate 100 mg IM last does was 08/12/17, next dose is September 09. Cogentin 0.5 mg po bid for EPS prophylaxis Zoloft 200mg po daily for depression sonata 10mg po hs for insomnia Haldol 5 mg with Ativan 2 mg q6 prn: agitation Dr. Meléndez contacted Dr. Lolis Jimenes who was listed as patient's psychiatrist on [facility] paperwork. Dr. Jimenes indicates that she no longer treats this patient. Dr. Jimenes reports that patient is schizophrenic and does not have Borderline Personality Disorder. Patient is generally a kind person who easily decompensates when she spends time out of her sister's home. SW consultation for discharge plan and social issues UA and Urine C/S ordered, will f/u Med management Family involvement Follow up on labs Will monitor closely SW evaluation for d/c planning Pt was educated about risk/benefits and alternatives of medications, coping strategies (safety plan, suicide prevention), relapse prevention, importance of follow up with psychiatrist and therapist, stay away from drugs/alcohol/smoking Medication Change: No (zoloft increased and haldol po d/c ) Medical Record Reviewed: Yes Consults ordered or reviewed: medical consultation appreciated Mental Status Examination - Cognitive Function Orientation: Person, Place, Situation Attention: WNL - Mood Mood: Depressed ("depression is improving, feel more hopeful") - Affect Affect: Constricted - Speech Speech: Appropriate - Formal Thought Process Formal Thought Process: Hallucinations (improving "I know they aren't real") - Suicidal Ideation Suicidal Ideation: No - Homicidal Ideation Homicidal Ideation: No Goal/Treatment Plan - Goal/Treatment Plan Need for Continued Stay: Remain at risks for inpatient hospitalization, Severe depression anxiety, Discharge may exacerbated symptoms, Severe functional impairment Progress Toward Problem(s) and Goals/Treatment Plan: 08/09/17 08/09/17 08/09/17 04:00 06:34 09:11 Temperature 97.8 F Pulse Rate 83 84 84 Respiratory 20 Rate Blood Pressure 106/70 107/67 107/67 [facility] Laboratory Results - last 24 hr 08/09/17 08/09/17 08/09/17 06:00 06:00 08:22 WBC 6.2 RBC 4.82 Hgb 13.0 Hct 38.2 MCV 79.3 L MCH 27.0 MCHC 34.0 RDW 14.1 Plt Count 211 MPV 10.4 Gran % 45.2 L Lymph % (Auto) 44.7 H [place] % (Auto) 6.9 H Eos % (Auto) 2.7 Baso % (Auto) 0.5 Gran # 2.79 Lymph # 2.8 [place] # 0.4 Eos # 0.2 Baso # 0.03 Sodium 136 Potassium 3.8 Chloride 103 Carbon Dioxide 26 Anion Gap 11 BUN 9 Creatinine 0.6 L Est GFR ( Amer) > 60 Est GFR (Non-Af Amer) > 60 POC Glucose (mg/dL) 185 H Random Glucose 189 H Calcium 9.0 Total Bilirubin 0.8 AST 19 ALT 32 Alkaline Phosphatase 105 Total Protein 6.9 Albumin 3.5 Globulin 3.4 Albumin/Globulin Ratio 1.0 L Laboratory Results - last 24 hr 08/09/17 08/09/17 08/09/17 06:00 11:32 12:37 WBC RBC Hgb Hct MCV MCH MCHC RDW Plt Count MPV Sodium Potassium Chloride Carbon Dioxide Anion Gap BUN Creatinine Est GFR ( Amer) Est GFR (Non-Af Amer) POC Glucose (mg/dL) 223 H Random Glucose Calcium Total Bilirubin AST ALT Alkaline Phosphatase Total Protein Albumin Globulin Albumin/Globulin Ratio Urine Color Yellow Urine Appearance Clear Urine pH 6.0 Ur Specific [place] 1.015 Urine Protein Negative Urine Glucose (UA) 500 H Urine Ketones Negative Urine Blood Large H Urine Nitrate Negative Urine Bilirubin Negative Urine Urobilinogen 1.0 H Ur Leukocyte Esterase Negative Urine RBC 0 - 2 Urine WBC 5 - 10 Ur Epithelial Cells 3 - 4 Urine Bacteria Small RPR Nonreactive 08/09/17 08/09/17 08/10/17 16:27 22:06 06:50 WBC 7.3 RBC 4.66 Hgb 12.8 Hct 37.2 MCV 79.8 L MCH 27.5 MCHC 34.4 RDW 14.2 Plt Count 224 MPV 11.3 H Sodium Potassium Chloride Carbon Dioxide Anion Gap BUN Creatinine Est GFR ( Amer) Est GFR (Non-Af Amer) POC Glucose (mg/dL) 132 H 296 H Random Glucose Calcium Total Bilirubin AST ALT Alkaline Phosphatase Total Protein Albumin Globulin Albumin/Globulin Ratio Urine Color Urine Appearance Urine pH Ur Specific [place] Urine Protein Urine Glucose (UA) Urine Ketones Urine Blood Urine Nitrate Urine Bilirubin Urine Urobilinogen Ur Leukocyte Esterase Urine RBC Urine WBC Ur Epithelial Cells Urine Bacteria RPR 08/10/17 08/10/17 06:50 08:39 WBC RBC Hgb Hct MCV MCH MCHC RDW Plt Count MPV Sodium 133 Potassium 4.0 Chloride 101 Carbon Dioxide 24 Anion Gap 13 BUN 11 Creatinine 0.6 L Est GFR ( Amer) > 60 Est GFR (Non-Af Amer) > 60 POC Glucose (mg/dL) 179 H Random Glucose 237 H Calcium 9.1 Total Bilirubin 0.8 AST 20 ALT 31 Alkaline Phosphatase 105 Total Protein 7.0 Albumin 3.6 Globulin 3.4 Albumin/Globulin Ratio 1.1 Urine Color Urine Appearance Urine pH Ur Specific [place] Urine Protein Urine Glucose (UA) Urine Ketones Urine Blood Urine Nitrate Urine Bilirubin Urine Urobilinogen Ur Leukocyte Esterase Urine RBC Urine WBC Ur Epithelial Cells Urine Bacteria RPR Estimated Date of D/C: 08/25/17 (will monitor closely)
[2017-08-22 12:36] LABS: URINE APPEARANCE CLEAR (CLEAR); URINE BILIRUBIN NEGATIVE (NEGATIVE); URINE BLOOD NEGATIVE (NEGATIVE); URINE COLOR YELLOW (YELLOW); URINE GLUCOSE (UA) NEGATIVE (NEGATIVE); URINE KETONE NEGATIVE (NEGATIVE); URINE LEUKOCYTE ESTERASE NEGATIVE Leu/uL (NEGATIVE); URINE PROTEIN NEGATIVE mg/dL (<30 mg/dL)
[2017-08-23 07:05] VITALS: RESP 20
[2017-08-23 07:48] LABS: HEMATOCRIT 36.9 % (36.0-48.0); MEAN CORPUSCULAR HEMOGLOBIN 26.6 pg (25.0-35.0); MEAN CORPUSCULAR HGB CONC 34.1 g/dl (31.0-37.0); MEAN PLATELET VOLUME 10.8 fl (7.0-11.0); RED CELL DISTRIBUTION WIDTH 13.7 % (11.5-14.5); WHITE BLOOD COUNT 9.3 10^3/ul (4.5-11.0)
[2017-08-23] MEDS: Insulin Reg-MEDIUM-Coverage SC SCH ×4 (07:59→22:09)
[2017-08-23 08:07] LABS: ALB/GLOB RATIO 1.2 (1.1-1.8); ALKALINE PHOSPHATASE 103 U/L (38-126); ALT/SGPT 38 U/L (7-56); AST/SGOT 21 U/L (14-36); BILIRUBIN,TOTAL 0.9 mg/dL (0.2-1.3); BLOOD UREA NITROGEN 10 mg/dL (7-21); CALCIUM 9.3 mg/dL (8.4-10.5); CARBON DIOXIDE 28 mmol/L (21-33); CHLORIDE 99 mmol/L (98-107); GFR AFRICAN-AMERICAN > 60; GLUCOSE,RANDOM 138 mg/dL (70-110); SODIUM 136 mmol/L (132-148); TOTAL PROTEIN 7.3 g/dL (5.8-8.3)
--- NOTE | 2017-08-23 09:15 | PCM.PYCHPN ---
Psychiatric Progress Note - Psychiatric Progress Note Patient seen today, length of contact: 25 min Patient Chief Complaint: "depression is improving, feel more hopeful" Problems Identified/Issues Discussed: I reviewed recent notes and met with patient at bedside. Grooming is fair and she remains soft spoken, oriented x3. She reports that depression is improving and that she feels more hopeful. Her affect is constricted but more related and reactive than prior weekends. Responses remain brief and superficial Hallucinations have also reportedly improved a lot. She denies any plan to hurt herself or anyone else. Thought process does appear more organized than our prior encounters. Staff nurse and patient has been cooperative, pleasant and brighter. More interactive and seems to be getting better. There were no behavioral issues overnight. Diagnostic Results: Schizoaffective Disorder Medication Change: No ( ) Medical Record Reviewed: Yes Mental Status Examination - Cognitive Function Orientation: Person, Place, Situation Attention: WNL - Mood Mood: Depressed ("depression is improving, feel more hopeful") - Affect Affect: Constricted (constricted but more related and reactive than prior weekends) - Speech Speech: Appropriate - Formal Thought Process Formal Thought Process: Hallucinations (reportedly have improved a lot) - Suicidal Ideation Suicidal Ideation: No - Homicidal Ideation Homicidal Ideation: No Goal/Treatment Plan - Goal/Treatment Plan Need for Continued Stay: Remain at risks for inpatient hospitalization, Severe depression anxiety, Discharge may exacerbated symptoms, Severe functional impairment Progress Toward Problem(s) and Goals/Treatment Plan: * c/w current tx and plan * Vitals reviewed and noted below: Selected Entries 08/22/17 08/22/17 08/22/17 07:00 09:06 16:30 Temperature 97.9 F Pulse Rate 90 90 90 Respiratory 16 Rate Blood Pressure 115/79 115/79 120/78 * Weekend labs noted below: 08/23/17 07:00 08/23/17 07:00 [facility] Laboratory Results - last 24 hr 08/16/17 08/16/17 08/16/17: 16:20 21:26 POC Glucose (mg/dL) 169 H 137 H 110 Urine Color Urine Appearance Urine pH Ur Specific [place] Urine Protein Urine Glucose (UA) Urine Ketones Urine Blood Urine Nitrate Urine Bilirubin Urine Urobilinogen Ur Leukocyte Esterase 08/17/17 08/17/17 00:00 07:12 POC Glucose (mg/dL) 144 H Urine Color Yellow Urine Appearance Clear Urine pH 6.0 Ur Specific [place] 1.010 Urine Protein Negative Urine Glucose (UA) Negative Urine Ketones Negative Urine Blood Negative Urine Nitrate Negative Urine Bilirubin Negative Urine Urobilinogen 1.0 H Ur Leukocyte Esterase Negative * Vitals reviewed and noted below: Selected Entries 08/15/17 08/16/17 08/16/17 16:17 06:48 08:37 Temperature 98.0 F 98.0 F Pulse Rate 97 H 88 88 Respiratory 18 Rate Blood Pressure 115/79 115/83 115/83 O2 Sat by Pulse 96 Oximetry 08/16/17 16:00 Temperature Pulse Rate 86 Respiratory Rate Blood Pressure 112/79 O2 Sat by Pulse Oximetry [facility] Laboratory Results - last 24 hr 08/09/17 08/09/17 08/09/17 06:00 06:00 08:22 WBC 6.2 RBC 4.82 Hgb 13.0 Hct 38.2 MCV 79.3 L MCH 27.0 MCHC 34.0 RDW 14.1 Plt Count 211 MPV 10.4 Gran % 45.2 L Lymph % (Auto) 44.7 H [place] % (Auto) 6.9 H Eos % (Auto) 2.7 Baso % (Auto) 0.5 Gran # 2.79 Lymph # 2.8 [place] # 0.4 Eos # 0.2 Baso # 0.03 Sodium 136 Potassium 3.8 Chloride 103 Carbon Dioxide 26 Anion Gap 11 BUN 9 Creatinine 0.6 L Est GFR ( Amer) > 60 Est GFR (Non-Af Amer) > 60 POC Glucose (mg/dL) 185 H Random Glucose 189 H Calcium 9.0 Total Bilirubin 0.8 AST 19 ALT 32 Alkaline Phosphatase 105 Total Protein 6.9 Albumin 3.5 Globulin 3.4 Albumin/Globulin Ratio 1.0 L Laboratory Results - last 24 hr 08/09/17 08/09/17 08/09/17 06:00 11:32 12:37 WBC RBC Hgb Hct MCV MCH MCHC RDW Plt Count MPV Sodium Potassium Chloride Carbon Dioxide Anion Gap BUN Creatinine Est GFR ( Amer) Est GFR (Non-Af Amer) POC Glucose (mg/dL) 223 H Random Glucose Calcium Total Bilirubin AST ALT Alkaline Phosphatase Total Protein Albumin Globulin Albumin/Globulin Ratio Urine Color Yellow Urine Appearance Clear Urine pH 6.0 Ur Specific [place] 1.015 Urine Protein Negative Urine Glucose (UA) 500 H Urine Ketones Negative Urine Blood Large H Urine Nitrate Negative Urine Bilirubin Negative Urine Urobilinogen 1.0 H Ur Leukocyte Esterase Negative Urine RBC 0 - 2 Urine WBC 5 - 10 Ur Epithelial Cells 3 - 4 Urine Bacteria Small RPR Nonreactive 08/09/17 08/09/17 08/10/17 16:27 22:06 06:50 WBC 7.3 RBC 4.66 Hgb 12.8 Hct 37.2 MCV 79.8 L MCH 27.5 MCHC 34.4 RDW 14.2 Plt Count 224 MPV 11.3 H Sodium Potassium Chloride Carbon Dioxide Anion Gap BUN Creatinine Est GFR ( Amer) Est GFR (Non-Af Amer) POC Glucose (mg/dL) 132 H 296 H Random Glucose Calcium Total Bilirubin AST ALT Alkaline Phosphatase Total Protein Albumin Globulin Albumin/Globulin Ratio Urine Color Urine Appearance Urine pH Ur Specific [place] Urine Protein Urine Glucose (UA) Urine Ketones Urine Blood Urine Nitrate Urine Bilirubin Urine Urobilinogen Ur Leukocyte Esterase Urine RBC Urine WBC Ur Epithelial Cells Urine Bacteria RPR 08/10/17 08/10/17 06:50 08:39 WBC RBC Hgb Hct MCV MCH MCHC RDW Plt Count MPV Sodium 133 Potassium 4.0 Chloride 101 Carbon Dioxide 24 Anion Gap 13 BUN 11 Creatinine 0.6 L Est GFR ( Amer) > 60 Est GFR (Non-Af Amer) > 60 POC Glucose (mg/dL) 179 H Random Glucose 237 H Calcium 9.1 Total Bilirubin 0.8 AST 20 ALT 31 Alkaline Phosphatase 105 Total Protein 7.0 Albumin 3.6 Globulin 3.4 Albumin/Globulin Ratio 1.1 Urine Color Urine Appearance Urine pH Ur Specific [place] Urine Protein Urine Glucose (UA) Urine Ketones Urine Blood Urine Nitrate Urine Bilirubin Urine Urobilinogen Ur Leukocyte Esterase Urine RBC Urine WBC Ur Epithelial Cells Urine Bacteria RPR [facility] RESULTS CBC wnl Alk Phosphatase 122H [id number] UDS negative Ua= glucose >1000, Many RBC WBC 4-5 Bacteria FEW Acetaminophen<10 Salicylate <2.5 Estimated Date of D/C: 08/25/17 (will monitor closely)
--- NOTE | 2017-08-23 17:53 | PN ---
DATE: SUBJECTIVE: I saw Taina resting comfortably in bed. She is smiling. She is in good spirits. She has no complaints. She is eating. She tells me she is participating and she is supposed to be going home on Friday. MEDICATIONS: She is on Ativan, Benadryl, Cogentin, Glucophage, Haldol, Insulin, Januvia, Lipitor, Maalox, milk of magnesia, Sonata, Tylenol, Zestril, and Zoloft. PHYSICAL EXAMINATION: VITAL SIGNS: She has a 97.9 temperature, 94 pulse, 111/71 blood pressure, and 20 respiratory rate. HEENT: Head is atraumatic, normocephalic. HEART: Regular rate. LUNGS: Clear to auscultation. ABDOMEN: Soft. EXTREMITIES: No edema. LABORATORY DATA: She has a 9.3 white count, 12.6 hemoglobin, 36.9 hematocrit, and 236 platelets. A 136 sodium, potassium 4, BUN 10, creatinine 0.8, GFR is greater than 60, sugar is 138. Calcium is 9.3, total bilirubin 0.98, AST 21, ALT is 38, alk phos 103, total protein 7.3, and albumin 4.1. ASSESSMENT AND PLAN: She is being seen by psychiatry. I think she has improved since she has been here. We will continue with aggressive treatment and care on Taina Billy. blood test. She is here for suicidal ideation, depression, anxiety, diabetes, hypertension, high cholesterol, urinary tract infection, nausea, vomiting, left foot pain from an injury otherwise she is doing very well. Zachary Johnson DO MTDD
--- NOTE | 2017-08-24 09:56 | PCM.PYCHPN ---
Psychiatric Progress Note - Psychiatric Progress Note Patient seen today, length of contact: 25 min Patient Chief Complaint: "depression is improving, feel more hopeful" Problems Identified/Issues Discussed: I reviewed recent notes and met with patient at bedside. Grooming is fair and she remains soft spoken, oriented x3. Eye contact is good and better than last week. Patient reports that depression is improving and that she feels more hopeful. Her affect is constricted but more related and reactive than prior weekends. Responses remain brief and superficial. Hallucinations have also reportedly improved a lot and she denies having any auditory hallucinations this morning. Patient denies any plan to hurt herself or anyone else. Thought process does appear more organized than our prior encounters. Staff notes indicate that patient has been cooperative, pleasant and brighter. More interactive and seems to be getting better. No signs of active paranoia. Seen smiling and hanging out with another patient. There were no behavioral issues over the weekend. Diagnostic Results: Schizoaffective Disorder Medication Change: No ( ) Medical Record Reviewed: Yes Mental Status Examination - Cognitive Function Orientation: Person, Place, Situation Attention: WNL - Mood Mood: Depressed ("depression is improving, feel more hopeful") - Affect Affect: Constricted (constricted but more related and reactive than prior weekends) - Speech Speech: Appropriate - Formal Thought Process Formal Thought Process: Hallucinations (reportedly have improved a lot, patient denies any hallucinations this morning) - Suicidal Ideation Suicidal Ideation: No - Homicidal Ideation Homicidal Ideation: No Goal/Treatment Plan - Goal/Treatment Plan Need for Continued Stay: Remain at risks for inpatient hospitalization, Severe depression anxiety, Discharge may exacerbated symptoms, Severe functional impairment Progress Toward Problem(s) and Goals/Treatment Plan: * c/w current tx and plan * Appreciate f/u by Dr. Johnson on 08/23/17 * Vitals reviewed and noted below: Selected Entries 08/22/17 08/22/17 08/23/17 09:06 16:30 04:00 Temperature Pulse Rate 90 90 Respiratory Rate Blood Pressure 115/79 120/78 108/72 08/23/17 08/23/17 07:04 08:33 Temperature 97.9 F Pulse Rate 94 H 94 H Respiratory 20 Rate Blood Pressure 111/71 111/71 * Weekend labs noted below: 08/23/17 07:00 08/23/17 07:00 * [facility] Laboratory Results - last 24 hr 08/16/17 08/16/17 08/16/17 11: 16:20 21:26 POC Glucose (mg/dL) 169 H 137 H 110 Urine Color Urine Appearance Urine pH Ur Specific [place] Urine Protein Urine Glucose (UA) Urine Ketones Urine Blood Urine Nitrate Urine Bilirubin Urine Urobilinogen Ur Leukocyte Esterase 08/17/17 08/17/17 00:00 07:12 POC Glucose (mg/dL) 144 H Urine Color Yellow Urine Appearance Clear Urine pH 6.0 Ur Specific [place] 1.010 Urine Protein Negative Urine Glucose (UA) Negative Urine Ketones Negative Urine Blood Negative Urine Nitrate Negative Urine Bilirubin Negative Urine Urobilinogen 1.0 H Ur Leukocyte Esterase Negative * Vitals reviewed and noted below: Selected Entries 08/15/17 08/16/17 08/16/17 16:17 06:48 08:37 Temperature 98.0 F 98.0 F Pulse Rate 97 H 88 88 Respiratory 18 Rate Blood Pressure 115/79 115/83 115/83 O2 Sat by Pulse 96 Oximetry 08/16/17 16:00 Temperature Pulse Rate 86 Respiratory Rate Blood Pressure 112/79 O2 Sat by Pulse Oximetry [facility] [place] [facility] Laboratory Results - last 24 hr 08/09/17 08/09/17 08/09/17 06:00 06:00 08:22 WBC 6.2 RBC 4.82 Hgb 13.0 Hct 38.2 MCV 79.3 L MCH 27.0 MCHC 34.0 RDW 14.1 Plt Count 211 MPV 10.4 Gran % 45.2 L Lymph % (Auto) 44.7 H [place] % (Auto) 6.9 H Eos % (Auto) 2.7 Baso % (Auto) 0.5 Gran # 2.79 Lymph # 2.8 [place] # 0.4 Eos # 0.2 Baso # 0.03 Sodium 136 Potassium 3.8 Chloride 103 Carbon Dioxide 26 Anion Gap 11 BUN 9 Creatinine 0.6 L Est GFR ( Amer) > 60 Est GFR (Non-Af Amer) > 60 POC Glucose (mg/dL) 185 H Random Glucose 189 H Calcium 9.0 Total Bilirubin 0.8 AST 19 ALT 32 Alkaline Phosphatase 105 Total Protein 6.9 Albumin 3.5 Globulin 3.4 Albumin/Globulin Ratio 1.0 L Laboratory Results - last 24 hr 11/08/09/17 08/09/17 06:00 11:32 12:37 WBC RBC Hgb Hct MCV MCH MCHC RDW Plt Count MPV Sodium Potassium Chloride Carbon Dioxide Anion Gap BUN Creatinine Est GFR ( Amer) Est GFR (Non-Af Amer) POC Glucose (mg/dL) 223 H Random Glucose Calcium Total Bilirubin AST ALT Alkaline Phosphatase Total Protein Albumin Globulin Albumin/Globulin Ratio Urine Color Yellow Urine Appearance Clear Urine pH 6.0 Ur Specific [place] 1.015 Urine Protein Negative Urine Glucose (UA) 500 H Urine Ketones Negative Urine Blood Large H Urine Nitrate Negative Urine Bilirubin Negative Urine Urobilinogen 1.0 H Ur Leukocyte Esterase Negative Urine RBC 0 - 2 Urine WBC 5 - 10 Ur Epithelial Cells 3 - 4 Urine Bacteria Small RPR Nonreactive 08/09/17 08/09/17 08/10/17 16:27 22:06 06:50 WBC 7.3 RBC 4.66 Hgb 12.8 Hct 37.2 MCV 79.8 L MCH 27.5 MCHC 34.4 RDW 14.2 Plt Count 224 MPV 11.3 H Sodium Potassium Chloride Carbon Dioxide Anion Gap BUN Creatinine Est GFR ( Amer) Est GFR (Non-Af Amer) POC Glucose (mg/dL) 132 H 296 H Random Glucose Calcium Total Bilirubin AST ALT Alkaline Phosphatase Total Protein Albumin Globulin Albumin/Globulin Ratio Urine Color Urine Appearance Urine pH Ur Specific [place] Urine Protein Urine Glucose (UA) Urine Ketones Urine Blood Urine Nitrate Urine Bilirubin Urine Urobilinogen Ur Leukocyte Esterase Urine RBC Urine WBC Ur Epithelial Cells Urine Bacteria RPR 08/10/17 08/10/17 06:50 08:39 WBC RBC Hgb Hct MCV MCH MCHC RDW Plt Count MPV Sodium 133 Potassium 4.0 Chloride 101 Carbon Dioxide 24 Anion Gap 13 BUN 11 Creatinine 0.6 L Est GFR ( Amer) > 60 Est GFR (Non-Af Amer) > 60 POC Glucose (mg/dL) 179 H Random Glucose 237 H Calcium 9.1 Total Bilirubin 0.8 AST 20 ALT 31 Alkaline Phosphatase 105 Total Protein 7.0 Albumin 3.6 Globulin 3.4 Albumin/Globulin Ratio 1.1 Urine Color Urine Appearance Urine pH Ur Specific [place] Urine Protein Urine Glucose (UA) Urine Ketones Urine Blood Urine Nitrate Urine Bilirubin Urine Urobilinogen Ur Leukocyte Esterase Urine RBC Urine WBC Ur Epithelial Cells Urine Bacteria RPR [facility] RESULTS CBC wnl Alk Phosphatase 122H Ox=107A [id number] UDS negative Ua= glucose >1000, Many RBC WBC 4-5 Bacteria FEW Acetaminophen<10 Salicylate <2.5 Estimated Date of D/C: 08/25/17 (will monitor closely)
[2017-08-24] MEDS: Insulin Reg-MEDIUM-Coverage SC SCH ×4 (10:10→22:15)
--- NOTE | 2017-08-24 12:28 | PN ---
DATE: SUBJECTIVE: I know Taina for a while now up in the psychiatric floor. She is resting comfortably in bed. She tells me she is being discharged tomorrow Friday. She is in good spirits. No complaints. No pains. No anxiety. She is comfortable. She is eating and she is participating. MEDICATIONS: She is on Ativan, Benadryl, Cogentin, Glucophage, Haldol, insulin, Januvia, Lipitor, Maalox, milk of magnesia, Sonata, Tylenol, Zestril and Zoloft. PHYSICAL EXAMINATION: VITAL SIGNS: 97.9 temperature, 85 pulse, 101/63 blood pressure, 20 respiratory rate. HEENT: Head is atraumatic and normocephalic. HEART: Regular rate. LUNGS: Clear to auscultation. ABDOMEN: Soft, obese and nontender. EXTREMITIES: No edema. LABORATORY DATA: She had a 9.3 white count, 12.6 hemoglobin, 236 platelets. She had 136 sodium, potassium 4.0, BUN 10, creatinine 0.8. Last blood sugar was 113. Calcium is 9.3, total bilirubin is 0.9, AST is 21, ALT is 38, alkaline phosphatase is 103. PLAN: She is being seen by Psychiatry. I think she is improving. Hopefully, she could be discharged tomorrow as per Psychiatry. She is here for suicidal ideation, depression, anxiety, diabetes, hypertension, high cholesterol, UTI, nausea, vomiting, left foot pain and hopefully, she will improve and continue to do well as per Psychiatry. Zachary Johnson DO
[2017-08-25 07:55] VITALS: BP 89/57; PULSE 86; TEMP 97.8
[2017-08-25] MEDS: Insulin Reg-MEDIUM-Coverage SC SCH ×2 (09:29→13:50)
--- NOTE | 2017-08-25 09:46 | PN ---
DATE: SUBJECTIVE: I saw Wenceslao resting comfortably in bed. She tells me she is going home today. She is in good spirits. She is happy. She is glad she is leaving the hospital. MEDICATIONS: She is on Ativan, Benadryl, Cogentin, Glucophage, Haldol, insulin, Januvia, Lipitor, Maalox, milk of magnesia, Sonata, Tylenol, Zestril, and Zoloft. PHYSICAL EXAMINATION: VITAL SIGNS: She has 97.9 temperature, 85 pulse, 101/63 blood pressure, and 20 respiratory rate. HEENT: Head is atraumatic and normocephalic. HEART: Regular rate. LUNGS: Decreased breath sounds, but clear. ABDOMEN: Soft, obese, and nontender. EXTREMITIES: No edema. LABORATORY DATA: Last labs on the , she did well. Last blood sugar was 161. Urine on 08/22/2017 was good. PLAN: She tells me she is leaving today. I asked her to continue to take her medications. Follow up with outpatient psychiatry, and hopefully she will do very well, and watch her diet; a low-salt, low-sugar diet. Zachary Johnson DO
== END 2017-08-25 16:49 | disposition home or self-care (01) | DRG 430 ==
LOC: ED 18:09 → ERH 19:11 → PSYC 20:13
PROVIDERS: ADMIT Psychiatry & Neurology Psychiatry; ATTEND Psychiatry & Neurology Psychiatry
PROC: GZ3ZZZZ Medication Management (ICD-10-PCS; principal; 2017-08-08)
DX: F25.9 Schizoaffective disorder, unspecified (principal); E11.9 Type 2 diabetes mellitus without complications; R45.851 Suicidal ideations; N39.0 Urinary tract infection, site not specified; E78.00 Pure hypercholesterolemia, unspecified; I10 Essential (primary) hypertension; J45.909 Unspecified asthma, uncomplicated; F41.9 Anxiety disorder, unspecified; G47.00 Insomnia, unspecified; R11.2 Nausea with vomiting, unspecified; R42 Dizziness and giddiness; M79.662 Pain in left lower leg; W19.XXXA Unspecified fall, initial encounter; Y92.230 Patient room in hospital as the place of occurrence of the external cause; Z91.5 Personal history of self-harm; Z79.84 Long term (current) use of oral hypoglycemic drugs; Z79.899 Other long term (current) drug therapy; Z88.0 Allergy status to penicillin